=== PATIENT | male | born 1970 | race Caucasian/White ===

== ENCOUNTER → 2024-11-27 | Outpatient (CLI) | payer OTHER ==
--- NOTE | 2024-11-27 12:41 | PE ---
EXAMINATION TYPE: PET CT fusion skull to thigh DATE OF EXAM: 11/27/2024 COMPARISON: Chest x-ray November 09, 2024 HISTORY: Solitary pulmonary nodule, abnormal x-ray TECHNIQUE: Following the intravenous administration of 9.41 mCi of F-18 FDG, whole body images are p erformed from the skull base to the midthigh. Images are reviewed on the computer in the coronal, ax ial, and sagittal planes. Reconstructed rotating images are created on independent workstation and r eviewed on the computer. A localization and attenuation correction CT is performed in conjunction w ith the PET scan. Blood glucose level equals 100. SCAN: Initial Scan FINDINGS: SKULL BASE AND NECK: No areas of abnormal hypermetabolic uptake. CHEST, MEDIASTINUM, AND HILAR REGION: Mild underlying emphysematous change is redemonstrated. Corresp onding to chest x-ray there is a 2.5 x 2.1 cm nodule in the superior aspect right lower lobe with abn ormal hypermetabolic uptake, max SUV is 5.90. No additional areas of abnormal hypermetabolic uptake in the thorax. ABDOMEN AND PELVIS: No hypermetabolic adrenal masses. Normal excretion. No areas of abnormal hypermet abolic uptake. OSSEOUS STRUCTURES: No areas of abnormal uptake. OTHER CT: Moderate three-vessel coronary artery calcification is present. There is 1.6 cm low dense l eft adrenal mass consistent with benign lipid rich adenoma. There is moderate chronic compression fracture of L2 level with slight scoliotic curvature of the tho racolumbar spine and straightening seen on sagittal images. IMPRESSION: Confirmation of suspicious nodule in the right lung worrisome for malignancy. No abnormal thoracic adenopathy or metastatic disease identified. Advise cardiothoracic surgical referral. [facility], , 11/27/2024 12:38 PM
== END | disposition home or self-care (01) ==
LOC: RADPETMAIN 10:17
PROVIDERS: ATTEND Internal Medicine
DX: R91.1 Solitary pulmonary nodule (principal); M48.56XA Collapsed vertebra, not elsewhere classified, lumbar region, initial encounter for fracture; N28.89 Other specified disorders of kidney and ureter
CPT/HCPCS: 78815; A9552

== ENCOUNTER → 2024-12-23 | Day surgery (SDC) | payer OTHER ==
[~2024-12-23] MED LIST: GLYCOPYRROLATE 0.2 MG/ML 2 ML VIAL ONE; KETAMINE HCL IN 0.9 % NACL 50 MG/5 ML SYRINGE ONE; LACTATED RINGERS 1,000 ML IV SCH; LIDOCAINE 1% (10MG/ML) FOR IV START INTRADERMA PRN; LIDOCAINE 1% INJ 10MG/ML (20 ML MDV) ONE; MIDAZOLAM 2 MG/2 ML VIAL ONE; NEOSTIGMINE 1 MG/ML 10 ML VIAL ONE; PHENYLEPHRINE-0.9% NACL SYG 1,000 MCG/10 ML SYRINGE ONE; PROPOFOL 10 MG/ML 20 ML VIAL IV ONE; ROCURONIUM 10 MG/ML (5 ML VIAL) IV ONE; SUCCINYLCHOLINE CHLORIDE 200 MG/10 ML VIAL IV ONE; fentaNYL (PF) 50 MCG/ML 2 ML AMP ONE
--- NOTE | 2024-12-23 12:49 | CT ---
EXAMINATION TYPE: CT Chest wo ION protocol DATE OF EXAM: 12/23/2024 COMPARISON: PET CT 11/27/2024 CLINICAL INDICATION: Male, 54 years old with history of ion bronch; [facility], Ion bronchoscopy TECHNIQUE: CT scan of the thorax is performed without IV contrast. CT DLP: 248.[address] CTDI: 6.50 mGy Automated exposure control for dose reduction was used. FINDINGS: LUNGS: Redemonstration of a superior segment right lower lobe 2.3 x 1.6 cm solid pulmonary nodule (se uriah 3, image 147). Additional few scattered small pulmonary nodules within the samples including a r ight upper lobe 3 mm pulmonary nodule (series 4, image 60). There is no pleural effusion or pneumotho rax seen. The tracheobronchial tree is patent. MEDIASTINUM: Lack of IV contrast is noted to limit evaluation for mediastinal and especially hilar ad enopathy. There are no definitive greater than 1 cm hilar or mediastinal lymph nodes. No cardiomega ly or pericardial effusion is seen. HEART: Size within normal limits.No pericardial effusion. Mild coronary artery calcifications present . -Appearing superior endplate compression deformity of the L2 vertebral body with approximately 10% height loss and no retropulsion. No visualized aggressive osseous lesion. OTHER: Left adrenal gland 1.9 cm lesion with Hounsfield unit of -18. Consistent with a benign lipid r ich adenoma. IMPRESSION: 1. Redemonstration of a right lower lobe superior segment 2.3 cm solid pulmonary nodule. This demonst rated FDG activity on prior PET/CT and is suspicious for primary lung malignancy. Additional nonspeci fic few scattered smaller pulmonary nodules. Attention on follow-up exams. 2. Left adrenal gland 1.9 cm lesion consistent with a benign lipid ridge adenoma. [facility], , 12/23/2024 12:47 PM
[2024-12-23] MEDS: IV FLUID CONTINUATION 1,000 ML IV ONE (12:53)
[2024-12-23] MEDS: DEXAMETHASONE SOD PHOSPHATE 4 MG/ML 1 ML VIAL IVP STA (13:12)
[2024-12-23] MEDS: ONDANSETRON 4 MG/2 ML VIAL IVP STA (13:12)
--- NOTE | 2024-12-23 15:18 | FL ---
EXAMINATION TYPE: FL bronchoscopy Intraoperative/procedural fluoroscopic services were provided. CLINICAL INDICATION:Male, 54 years old with history of BRONCH WITH ION ROBOT; , [facility] FINDINGS: Fluoroscopic image demonstrating bronchoscopy. No radiographic evidence for complication. Total fluoroscopy time is 1 minute 5 seconds. DAP: 2.4492 Gycm2 Please see the operative/procedural note for further details. [facility], , 12/23/2024 3:15 PM
[2024-12-23 15:34] VITALS: TEMP 97.2
--- NOTE | 2024-12-23 15:40 | XR ---
EXAMINATION TYPE: XR chest 1V DATE OF EXAM: 12/23/2024 3:36 PM COMPARISON: Bronchoscopy fluoroscopic images of the same date, CT chest 12/23/2024 TECHNIQUE: XR chest 1V Portable AP radiograph of the chest. CLINICAL INDICATION:Male, 54 years old with history of post bx; FINDINGS: Lungs/Pleura: No pleural effusion or pneumothorax. Redemonstration of right mid lung pulmonary nodule with development of surrounding airspace opacities. Pulmonary vascularity: Unremarkable. Heart/mediastinum: Cardiomediastinal silhouette is unremarkable. Atherosclerotic calcifications are seen in the aorta. Musculoskeletal: No acute osseous pathology. IMPRESSION: Postbiopsy changes of previously seen right midlung pulmonary nodule with surrounding airspace opacit y likely representing atelectasis/blood products. No discrete pneumothorax. [facility], , 12/23/2024 3:38 PM
[2024-12-23 16:32] VITALS: BP 113/71; PULSE 80; RESP 20
--- NOTE | 2024-12-23 17:23 | P.PCN ---
Date of Procedure: 12/23/24 Operative Findings: Preoperative Diagnosis: Right lower lobe pulmonary nodule measuring 2.5 x 2.1 cm in size Postoperative Diagnosis: Right lower lobe pulmonary nodule/mass measuring 2.5 x 2.1 cm in size Procedure(s) Performed: Flexible bronchoscopy Robotic-assisted bronchoscopy and addition to radial ultrasound evaluation of right lower lobe pulmonary nodule Robotic-assisted transbronchial biopsies, transbronchial needle aspirate of the right lower lobe pulmonary nodule Robotic assisted bronchioloalveolar lavage of the of the right lower lobe Anesthesia: CLAUDIAA Surgeon: Marilin Zheng Estimated Blood Loss (ml): 0 Pathology: other Condition: stable Disposition: same day Operative Findings: A physical exam was performed. Informed consent was obtained from the patient after explaining all the risks (pneumothorax, life threatening bleeding, infection and adverse effects due to medications), benefits and alternatives to the procedure which the patient appeared to understand and so stated. The patient was connected to the monitoring devices. General anesthesia was induced and the patient was intubated by anesthesia. A final timeout was performed and the procedure confirmed by the attending staff bronchoscopist. The bronchoscope was inserted and the airway examined. The trachea was within normal limits. Fifi was sharp. Examination of the right side included right mainstem bronchus, the right upper lobe bronchus, bronchus intermedius, right middle lobe and right lower lobe bronchus and the various 10 segments on the right. The findings on the right were essentially within normal limits. Examination of the left side showed a normal left mainstem bronchus. The left upper lobe bronchus and left lower lobe bronchus and the various 8 segments on the left were essentially within normal limits. The flexible bronchoscope was removed and the robotic bronchoscope was inserted. Registration was completed. I next guided the robotic bronchoscope using the navigation system into the right lower lobe superior segment. Once in proper position, the bronchoscope was frozen. The radial EBUS probe was placed through the bronchoscope and confirmed abnormal u/s images vs normal lung. U/S evaluation was then used to reconfirm location. A transbronchial needle aspirate of the right lower lobe mass was done initially using a 23-gauge needle and later on using a 21-gauge needle. Initially, 3 passes were taken and the samples were examined and evaluated by pathology at the bedside. Following this rapid onsite cytology evaluation and confirmation of sample adequacy, 3 additional transbronchial needle aspirates were done and no samples was placed in the cellblock. Following that, a forceps was used to perform transbronchial biopsies of the right lower lobe pulmonary nodule. A forceps was introduced through working channel and extended the appropriate distance and to transbronchial biopsies were performed using fluoroscopic guidance. The u/s probe was then reinserted to confirm location. When confirmed this process was repeated for a total of 5-6 transbronchial biopsies. Following that, a bronchioloalveolar lavage of the left upper lobe was also done. A total of 40 cc of fluid was infused and 10 cc was aspirated and the aspirate was blood tinged. No clots. Fluoroscopic check for pneumothorax was negative upon completion of the procedure. There was 0 ml blood loss with the procedure. The robotic catheter was removed. The flexible bronchoscope was inserted. Therapeutic airway suctioning was done. There was no evidence of an endobronchial bleed. The flexible bronchoscope was removed. The patient was extubated and the patient was transferred to recovery in stable condition. FINDINGS: 1.The airways appeared normal, no significant respiratory secretions 2 Successful navigation, ultrasonographic identification, and biopsies of right lower lobe pulmonary nodule 3.The the radial ultrasound view was eccentric as the lesion was located to the fifi and between 3 separate subsegments within the superior segment of the right lower lobe. Subsequently, following manipulation and transbronchial needle aspirates, the the ultrasound images became concentric RECOMMENDATIONS: Await pathology and cytology results The referring physician will be alerted to the results when available. The patient was advised to follow up with the referring physician with the biop sy results
== END ==
LOC: ORWHC2ENDO 12:14
PROVIDERS: ATTEND Internal Medicine Critical Care Medicine
DX: R91.1 Solitary pulmonary nodule (principal); J44.9 Chronic obstructive pulmonary disease, unspecified; F17.200 Nicotine dependence, unspecified, uncomplicated
CPT/HCPCS: 88108; 88305; 87070; 87205; 87075; 71045; 71250; 31628; 31629; 31624; 31627; 31654; J2250; J0330; J1100; J2710; J2405; J2003; J3010; J2704; J2371; J1596; S2900

== ENCOUNTER → 2025-02-24 | Outpatient (CLI) | payer OTHER ==
[2025-02-24 19:30] LABS: Chloride 104 mmol/L (96-109); Potassium 4.6 mmol/L (3.5-5.5); Sodium 141 mmol/L (135-145)
[2025-02-24 19:31] LABS: Basophils # (A) 0.07 X 10*3/uL (0.00-0.10); Basophils % (A) 1.1 %; Eosinophils # (A) 0.18 X 10*3/uL (0.04-0.35); Eosinophils % (A) 2.7 %; HCT 43.9 % (39.6-50.0); HGB 14.3 g/dL (13.0-17.0); Lymphocytes # (A) 2.16 X 10*3/uL (0.90-5.00); Lymphocytes % (A) 32.6 %; MCH 29.7 pg (27.0-32.0); MCHC 32.6 g/dL (32.0-37.0); MCV 91.3 FL (80.0-97.0); Mean Platelet Volume 10.7 FL (9.5-12.2); Monocytes # (A) 0.41 X 10*3/uL (0.20-1.00); Monocytes % (A) 6.2 %; NRBC Per 100 WBC 0 X 10*3/uL (0.00-0.01); Neutrophils # (A) 3.78 X 10*3/uL (1.80-7.70); Neutrophils % (A) 57.1 %; Platelet Count 259 X 10*3/uL (140-440); RBC 4.81 X 10*6/uL (4.40-5.60); RDW 12.1 % (11.5-14.5); WBC 6.62 X 10*3/uL (4.50-10.00)
[2025-02-24 20:57] LABS: Appearance,Urine Clear (Clear); Bilirubin,Urine Small (Negative); Blood,Urine Negative (Negative); Color,Urine Dark Yellow (Yellow); Ketones,Urine Trace (Negative); Nitrite,Urine Negative (Negative); PH, Urine 5.5; Specific Gravity,Urine 1.028 (1.001-1.030)
== END | disposition home or self-care (01) ==
LOC: LABWHC1 14:59
PROVIDERS: ATTEND Thoracic Surgery (Cardiothoracic Vascular Surgery)
DX: Z01.818 Encounter for other preprocedural examination (principal); C34.31 Malignant neoplasm of lower lobe, right bronchus or lung
CPT/HCPCS: 36415; 80051; 81003; 82565; 84520; 85025; 86850; 86900; 86901; 87086; 93005

== ENCOUNTER → 2025-02-25 | Outpatient (CLI) | payer OTHER ==
[2025-02-25 16:57] LABS: INR 0.9 (<1.2); Partial Thromboplastin Time 26.4 sec (22.0-30.0); Prothrombin Time 10.3 sec (10.0-12.5)
== END | disposition home or self-care (01) ==
LOC: LABPAT 16:15
PROVIDERS: ATTEND Thoracic Surgery (Cardiothoracic Vascular Surgery)
DX: Z01.812 Encounter for preprocedural laboratory examination (principal); C34.31 Malignant neoplasm of lower lobe, right bronchus or lung
CPT/HCPCS: 82947; 85610; 85730

== ENCOUNTER 2025-03-02 05:38 | Inpatient (IN) | payer OTHER ==
[2025-03-02] MEDS ORDERED: LIDOCAINE 1% (10MG/ML) FOR IV START INTRADERMA PRN (05:54)
[2025-03-02] MEDS: IV FLUID CONTINUATION 1,000 ML IV ONE ×2 (06:37→06:38)
[2025-03-02] MEDS: LACTATED RINGERS 1,000 ML IV SCH (06:38)
[2025-03-02] MEDS: ONDANSETRON 4 MG/2 ML VIAL IVP ONE (06:49)
[2025-03-02] MEDS: DEXAMETHASONE SOD PHOSPHATE 4 MG/ML 1 ML VIAL IV ONE (06:49)
[2025-03-02] MEDS: MIDAZOLAM 2 MG/2 ML VIAL IV ONE (06:54)
[2025-03-02] MEDS: fentaNYL (PF) 50 MCG/ML 2 ML AMP IV PRN (06:54)
[2025-03-02] MEDS ORDERED: HYDROmorphone 0.5 MG/0.5 ML SYRINGE IVP PRN (07:00)
--- NOTE | 2025-03-02 07:14 | P.ANPRN ---
Procedure Note - Anesthesia - Nerve Block Performed Right Erector Spinae Single Time Out Performed: Yes Date of Procedure: 03/02/25 Procedure Start Time: :54 Procedure Stop Time: 07:01 Location of Patient: PreOp Indication: Acute Post-Operative Pain, Requested by Surgeon Sedation Type: Sedate with meaningful contact maintained Preparation: Sterile Prep Position: Sitting Needle Types: Pajunk Needle Gauge: 21 Ultrasound used to visualize needle placement: Yes Ultrasound used to observe medication spread: Yes Injectate: 0.5% Ropivacaine (see comment for volume) (20 mL +10 mL of normal saline +4 mg dexamethasone) Blood Aspirated: No Pain Paresthesia on Injection Noted: No Resistance on Injection: Normal Image Stored and Saved: Yes Events: Uneventful and Well Tolerated
[2025-03-02] MEDS ORDERED: NEOSTIGMINE 1 MG/ML 10 ML VIAL ONE (07:24)
[2025-03-02] MEDS ORDERED: GLYCOPYRROLATE 0.2 MG/ML 2 ML VIAL ONE (07:24)
[2025-03-02] MEDS ORDERED: KETAMINE HCL IN 0.9 % NACL 50 MG/5 ML SYRINGE ONE (07:24)
[2025-03-02] MEDS ORDERED: LIDOCAINE 1% INJ 10MG/ML (20 ML MDV) ONE (07:24)
[2025-03-02] MEDS ORDERED: SUCCINYLCHOLINE CHLORIDE 200 MG/10 ML VIAL IV ONE (07:24)
[2025-03-02] MEDS ORDERED: SODIUM CHLORIDE 0.9% (PF) 10 ML VIAL ONE (07:24)
[2025-03-02] MEDS ORDERED: METOPROLOL TARTRATE 5 MG/5 ML VIAL IVP ONE (07:24)
[2025-03-02] MEDS ORDERED: ACETAMINOPHEN IV (For NPO) 1,000 MG/100 ML VIAL ONE (07:24)
[2025-03-02] MEDS ORDERED: ROPIVACAINE 5 MG/ML 30 ML VIAL ONE (07:24)
[2025-03-02] MEDS ORDERED: fentaNYL (PF) 50 MCG/ML 2 ML AMP ONE (07:24)
[2025-03-02] MEDS ORDERED: ROCURONIUM 10 MG/ML (5 ML VIAL) IV ONE (07:24)
[2025-03-02] MEDS ORDERED: PROPOFOL 10 MG/ML 20 ML VIAL IV ONE (07:24)
[2025-03-02] MEDS ORDERED: MIDAZOLAM 2 MG/2 ML VIAL ONE (07:24)
[2025-03-02] MEDS ORDERED: DEXAMETHASONE SOD PHOSPHATE 4 MG/ML 1 ML VIAL ONE (07:24)
[2025-03-02] MEDS ORDERED: HYDROmorphone (PF) 1 MG/ML ONE (07:24)
[2025-03-02] MEDS: BUPIVACAINE (PF) 0.25% 30 ML VIAL SQ ONE ×2 (08:49)
[2025-03-02] MEDS: LIDOCAINE 1%-EPI 1:100,000 20 ML VIAL SQ ONE ×2 (08:50)
[2025-03-02] MEDS: LACTATED RINGERS 1,000 ML IV ONE (11:24)
[2025-03-02] MEDS: RACEPINEPHRINE 2.25% NEB 0.5 ML NEBU INHALATION STA (12:27)
--- NOTE | 2025-03-02 12:45 | P.OP ---
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 Right lower lobe superior segment wedge for excisional biopsy nodule 2. Completion lobectomy 3. Mediastinal lymph node dissection 4. 2 level intercostal nerve block Implants: None Anesthesia: CELSA, regional Surgeon: Kasi Sparrow Estimated Blood Loss (ml): 50 Pathology: other (Level 9, 8, 7, 10, 11, 12, and 13 lymph nodes. Right lower lobe superior segment wedge with nodule. Completion right lower lobectomy) Condition: stable Disposition: PACU Indications for Procedure: Mr. Yeh is our pleasant 54-year-old gentleman with a suspicious right lower lobe nodule. He underwent Ion biopsy and unfortunately the biopsy just showed suspicious cells without a confirmed diagnosis. He presents for wedge resection of the nodule with possible completion lobectomy if the nodule is confirmed non- small cell carcinoma. Operative Findings: 1. Nodule contained within specimen 2. Frozen section showed atypical cells with a lipidic growth pattern consistent with adenocarcinoma, well-differentiated 3. Multiple large but benign appearing lymph nodes 4. Poorly developed fissure with small but discernible air leak on positive pressure ventilation Description of Procedure: After consent was obtained, the patient was brought to the operating room where he underwent general by dual-lumen endotracheal tube anesthesia with some difficulty requiring my assistance for placement. We eventually had excellent tube placement and good lung isolation. The patient was then positioned in left lateral decubitus position on the beanbag positioner and the table was flexed to open up the rib spaces on the right side. We then evacuated the beanbag and secured the patient in place. He was then prepped and draped in sterile fashion in left lateral decubitus position and prior to incision a timeout was observed whereby the patient the procedure the site the side the OR personnel, antibiotic delivery and films up in the room were all confirmed. We then injected the patient after marking with local anesthetic at the camera port site. Once the incision was made we gained access to the chest with a blunt clamp and then inserted an 8 mm trocar sheath through which we insufflated with 7 cm water pressure CO2. We confirmed we are in the chest space and then used the scope to visually confirm injection of the local anesthetic for our intercostal nerve block at the eighth intercostal space. We then proceeded to use the camera through the posterior port to verify placement and local injection for the anteriormost operative port prior to inserting the 12 port and then we verified injection and the nerve block/intercostal block at the 10th intercostal space prior to placing our 15 mm assistance port site. Once that was accomplished we brought the robot and docked. We inserted the camera and the instruments under direct vision of the scope and then brought in a single cigar sponge after docking the robot. I then broke scrub for the console. We began by inspecting the fissure and found the fissures to be partially complete both major and minor. We also were able to see there was no visual evidence of the pulmonary artery branches at the fissure and we spent some time developing the fissure in order to verify where we were going to take our wedge resection. It was at that time that it appeared the endotracheal tube was then with the bronchial side on the right and that it was within the bronchus intermedius. I then attended the patient at the bedside and we readjusted the tube assuring that the bronchial was down the left and once we had done that and assured it was in proper position we were able to ventilate the left lung independent from the right and all 3 right lobes were able to become atelectatic giving us adequate exposure for the rest of the procedure. We are then able to use multiple firings of the 30 mm blue load robotic stapler to resect the superior segment wedge with the nodule and it and we confirmed after removal and a small bag through the assistance port that the nodule was indeed within the specimen by palpation. We then proceeded on after handing that off for frozen section to dissected the inferior pulmonary ligament and the attendant lymph nodes for a level 9 packet. There were several lymph nodes along the esophagus and those were taken for level 8. We then took out a generous level 7 packet as well as a level 10 lymph node. We were further able to locate and take a level 11 lymph node at that time. We then pushed the lung posteriorly and we are able to take a level 4 lymph node packet and then we turned our attention to the anteriormost portion of the major fissure. We used a blue stapling load to partially divide that and then once we had confirmation that the specimen was indeed consistent with adenocarcinoma, lipidic type, we proceeded to take the inferior pulmonary vein and then we were able to complete the anterior portion of the major fissure then locating the pulmonary arterial trunk just above all 3 branches to the lower lobe. This was then taken with a white stapling load exposing the inferior lobe bronchi. We were able to take the bronchus with a green stapling load and then complete the fissure with a single firing of a blue stapling load. Once the lobe was free, we placed it in a catch bag and removed through the assistance port site having to enlarge it slightly to accommodate the residual specimen. We then proceeded on to remove all foreign bodies after removing all robotic instruments and camera, undocking the robot and moving it aside. We then used a cigar sponge to dry up the staple line on the lung and assure the bronchus looked good. We also dried up the raw spot left behind after dissecting in the fissure. We then proceeded to use pro gel sealant to spray the suture line, the bronchus and staple line as well as the raw spot at the fissure. We then, while the pro gel was drying placed a posterior 19 Turkmen Elijah drain through the assistance port site and the 20 Turkmen straight thoracic catheter anteriorly through the anteriormost port site. These were secured and placed with 0 Ethibond sutures and after that was accomplished the lung was able to be reinflated under direct vision of the camera. It inflated nicely both the upper and middle lobes and we were able then to remove all ports and camera and close the patient deep with 2-0 interrupted buried Vicryl sutures and the skin with 40 buried interrupted Monocryl sutures. Patient was dressed with skin glue and 4 x 4's and tape around the chest tubes that were attached to a Y and then to a Pleur-evac container. The patient did have a small airleak on inspiration under positive pressure ventilation. The patient's mother and aunt were briefed on the procedure and the findings as well as the patient's condition.
--- NOTE | 2025-03-02 13:18 | XR ---
EXAMINATION TYPE: XR chest 1V portable DATE OF EXAM: 03/02/2025 1:00 PM COMPARISON: 12/23/2024 CLINICAL INDICATION: Male, 54 years old with history of post lobectomy, TECHNIQUE: XR chest 1V portable views of the chest are obtained. FINDINGS: Demonstrated are scattered senescent parenchymal change. Postoperative changes of partial right-side d lobectomy with right-sided chest tube in place. No evidence for pneumothorax There is no evidence for focal infiltrate. The heart is stable. Hilar and mediastinal structures are within normal limits. Degenerative changes are seen of the dorsal spine. IMPRESSION: 1. Postoperative changes of partial right-sided lobectomy with right-sided chest tube in place. No e vidence for pneumothorax [facility], , 03/02/2025 1:15 PM
[2025-03-02] MEDS ORDERED: ONDANSETRON 4 MG/2 ML VIAL IVP PRN (14:19)
[2025-03-02] MEDS ORDERED: IPRATROPIUM-ALBUTEROL 3 ML NEB IH PRN (14:19)
[2025-03-02] MEDS: IPRATROPIUM-ALBUTEROL 3 ML NEB IH SCH (15:53)
[2025-03-02] MEDS: HEPARIN SODIUM,PORCINE 5,000 UNIT/ML 1 ML VIAL SQ SCH (16:20)
[2025-03-02] MEDS: DEXTROSE 5%-0.45% NACL 1,000 ML IV SCH (16:20)
[2025-03-02] MEDS: traMADol 50 MG TAB PO PRN (16:20)
--- NOTE | 2025-03-02 17:17 | P.CNPUL ---
History of Present Illness Consult date: 03/02/25 Requesting physician: Kasi Sparrow Reason for consult: lung mass Chief complaint: Right lower lobe pulmonary nodule History of present illness: This is a 54-year-old male patient with a known history of chronic obstructive pulmonary disease, very mild with an FEV1 value 97% of predicted, chronic and ongoing tobacco dependence. He was being followed in our office with Dr. Sterling regarding a right lower lobe mass measuring 2.3 cm that was PET avid. He did undergo robotic bronchoscopy however the results were inconclusive. He was referred to Dr. Sparrow for wedge resection and biopsy. He was brought in today electively for the surgery. He did undergo a right lower lobe superior segment wedge for excisional biopsy nodule. Completion lobectomy, and mediastinal lymph node dissection. 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 Postoperative chest x-ray reveals partial right sided lobectomy with right sided chest tube in place. No evidence of pneumothorax. He is seen today in consultation on the selective care unit. Currently sitting up in bed. Awake and alert in no acute distress. He is maintaining O2 saturations in the upper 90s on 2 L/min per nasal cannula. He is afebrile. Hemodynamically stable. Right sided chest tube remains in place to Pleur-evac and wall suction. Positive leak present. He is educated regarding the importance of the use of the incentive spirometer. Review of Systems REVIEW OF SYSTEMS: CONSTITUTIONAL: Denies any recent significant weight loss or weight gain. EYES: Denies change in vision. EARS, NOSE, MOUTH, THROAT: Denies headaches, denies sore throat. CARDIOVASCULAR: Positive for surgical site chest pain, no palpitations or syncopal episodes. RESPIRATORY: Denies shortness of breath, cough, congestion or hemoptysis. GASTROINTESTINAL: Denies change in appetite, denies abdominal pain GENITOURINARY: Denies hematuria, denies infections. MUSKULOSKELETAL: Denies pain, denies swelling. INTEGUMENTARY: Denies rash, denies eczema. NEUROLOGICAL: Denies recent memory loss, no recent seizure activity. PSYCHIATRIC: Denies anxiety, denies depression. HEMATOLOGIC/LYMPHATIC: Denies anemia, denies enlarged lymph nodes. Past Medical History Past Medical History: Hyperlipidemia, Osteoarthritis (OA) Additional Past Medical History / Comment(s): Smokers cough, right lung nodule. History of Any Multi-Drug Resistant Organisms: None Reported Past Surgical History: No Surgical Hx Reported Additional Past Surgical History / Comment(s): Bronchoscopy/right lung biopsy. Past Anesthesia/Blood Transfusion Reactions: No Reported Reaction Additional Past Anesthesia/Blood Transfusion Reaction / Comment(s): No hx blood transfusion. Smoking Status: Current every day smoker - Past Family History Sister(s) Family Medical History: Cancer Additional Family Medical History / Comment(s): Not sure what type of cancer. Medications and Allergies Home Medications Medication Instructions Recorded Confirmed Type Cholecalciferol [Vitamin D3 (25 25 mcg PO DAILY 12/21/24 03/02/25 History Mcg = 1000 Iu)] Allergies Allergy/AdvReac Type Severity Reaction Status Date / Time No Known Allergies Allergy Verified 03/02/25 06:04 Physical Exam Vitals: Vital Signs Temp Pulse Pulse Pulse Resp BP BP 03/02/25 16:08 80 03/02/25 15:53 80 03/02/25 13:30 83 16 125/72 03/02/25 13:15 85 16 129/70 03/02/25 13:00 89 16 134/64 152/71 03/02/25 12:45 86 16 109/82 148/87 03/02/25 12:35 87 28 H 142/80 03/02/25 12:20 97.1 F L 93 20 140/71 03/02/25 07:19 60 16 117/74 03/02/25 07:04 57 L 16 112/70 03/02/25 06:59 57 L 16 116/74 03/02/25 06:20 97.5 F L 16 125/80 Pulse Ox 03/02/25 16:08 03/02/25 15:53 03/02/25 13:30 98 03/02/25 13:15 98 03/02/25 13:00 96 03/02/25 12:45 98 03/02/25 12:35 98 03/02/25 12:20 95 03/02/25 07:19 99 03/02/25 07:04 99 03/02/25 06:59 100 03/02/25 06:20 99 Intake and Output 03/02/25 03/02/25 03/02/25 06:59 14:59 22:59 Intake Total 300 1750 Output Total 250 Balance 300 1500 Intake: IV 300 1750 Output: Urine 200 Estimated Blood Loss 50 Other: Weight 66.8 kg GENERAL EXAM: Alert, pleasant 54-year-old male, sitting up in bed, on 2 L nasal cannula, fairly comfortable in no apparent distress. HEAD: Normocephalic. EYES: Normal reaction of pupils, equal size. NOSE: Clear with pink turbinates. THROAT: No erythema or exudates. NECK: No masses, no JVD. CHEST: No chest wall deformity. Right sided chest tube secured in place to Pleur-evac and wall suction. Positive leak LUNGS: Equal air entry with diminished breath sounds in the right lung. CVS: S1 and S2 normal with no audible murmur, regular rhythm. ABDOMEN: No hepatosplenomegaly, normal bowel sounds, no guarding or rigidity. SPINE: No scoliosis or deformity SKIN: No rashes CENTRAL NERVOUS SYSTEM: No focal deficits, tone is normal in all 4 extremities. EXTREMITIES: There is no peripheral edema. No clubbing, no cyanosis. Pe ripheral pulses are intact. Results - Diagnostic Findings Chest x-ray: image reviewed Assessment and Plan Assessment: 2.3 x 1.6 cm PET avid superior segment of the right lower lobe solid pulmonary nodule. Status post right lower lobe superior segment wedge for excisional biopsy nodule. Completion lobectomy. Mediastinal lymph node dissection. Postoperative day #0. 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 Chronic and ongoing tobacco dependence Mild chronic obstructive pulmonary disease with an FEV1 value 97% of predicted Plan: The patient was seen and evaluated Operative report, chest x-ray and medications reviewed Encouraged regarding increased use of the incentive spirometer Currently stable on 2 L nasal cannula Initiate DuoNeb inhalations Heparin for DVT prophylaxis Toradol for pain control Receiving cefazolin NicoDerm patch in place Increase his activity as tolerated The plan of care was discussed with the patient and his family members who are present at the bedside We will continue to follow and make further recommendations based on his clin ical status I have personally seen and examined the patient, performed the documentation and the assessment and plan as written. Number of minutes spent on the visit: 20 Dictation was produced using [employer] dictation software. Please excuse any grammatical, word or spelling errors. Time with Patient: Greater than 30
[2025-03-02] MEDS: NICOTINE 21MG/24HR PATCH TRANSDERM SCH (17:44)
[2025-03-02] MEDS: KETOROLAC 15 MG/ML 1 ML VIAL IVP SCH (17:44)
[2025-03-02] MEDS: SENNOSIDES-DOCUSATE SODIUM 1 EACH TAB PO SCH (20:03)
[2025-03-02] MEDS: ACETAMINOPHEN TAB 325 MG TAB PO PRN (20:03)
[2025-03-03] MEDS: SODIUM CHLORIDE 0.9% 1,000 ML IV SCH (03:38)
[2025-03-03] MEDS: PANTOPRAZOLE 40 MG TABLET PO SCH (06:13)
--- NOTE | 2025-03-03 08:14 | XR ---
EXAMINATION TYPE: XR chest 1V DATE OF EXAM: 03/03/2025 6:59 AM COMPARISON: 03/02/2025 CLINICAL INDICATION: Male, 54 years old with history of post lobectomy, TECHNIQUE: XR chest 1V views of the chest are obtained. FINDINGS: 2 right-sided chest tubes remain in place. Postoperative changes of partial right-sided lobectomy. No sizable pneumothorax. There is no evidence for focal infiltrate. The heart is stable. Hilar and mediastinal structures are within normal limits. Degenerative changes are seen of the dorsal spine. IMPRESSION: 1. 2 right-sided chest tubes remain in place. Postoperative changes of partial right-sided lobectomy . No sizable pneumothorax. [facility], , 03/03/2025 8:12 AM
--- NOTE | 2025-03-03 08:48 | P.PN ---
Subjective Progress Note Date: 03/03/25 Principal diagnosis: Right lower lobe lung nodule 2.3 x 1.6 cm PET avid superior segment of the right lower lobe solid pulmonary nodule. Past medical history significant for hyperlipidemia, chronic obstructive pulmonary disease with a preoperative FEV1 97% of predicted value, and chronic ongoing tobacco dependence. POD #1 Right lower lobe superior segment wedge for excisional biopsy nodule, completion lobectomy, mediastinal lymph node dissection, and 2 level intercostal nerve block. The patient was seen and examined in follow-up today March 03, 2025 at his bedside on the third floor cardiac stepdown unit. He is currently sitting up to the bedside chair, is awake, alert, oriented x 3 and is in no acute apparent distress. He denies any complaints of shortness of breath at this time, although is complaining of some surgical type pain to his chest tube insertion sites, currently rating his pain 4 out of 10 on the pain scale. He does report that his current pain medication regimen is controlling his pain. Oxygen saturations are 97% on room air and he is achieving 1250 mL on his incentive spirometry with encouragement. Right pleural chest tubes remain in place to low continuous wall suction -20 cm H2O. Continuous airleak is present with breathing, speaking and coughing. Draining thin serosanguineous drainage with 100 mL open in the last 8 hours and 370 mL output since surgery. Laboratory results remain pending, chest x-ray results reviewed. Surgical pathology results remain pending. Objective - Vital Signs Vital signs: Vital Signs Temp 98.3 F 03/03/25 03:11 Pulse 80 03/03/25 08:13 Resp 18 03/03/25 03:11 BP 128/78 03/03/25 03:11 Pulse Ox 97 03/03/25 03:11 FiO2 Intake & Output 03/02/25 03/03/25 03/03/25 18:59 06:59 18:59 Intake Total 1989 Output Total 250 1600 Balance 1740 -1580 Weight 69.3 kg Intake: IV 1750 20 Invasive Line 2 10 Invasive Line 3 10 Oral 240 Output: Drainage 100 Right Chest 100 Urine 200 1500 Estimated Blood Loss 50 Other: Voiding Method Urinal - Exam CONSTITUTIONAL: Appears comfortable, cooperative, no acute distress RESPIRATORY: Lungs sounds diminished bilaterally. Respirations even, nonlabored. Currently on room air with oxygen saturation 97%. Able to achieve 1250 mL on incentive spirometry. Strong cough. CARDIOVASCULAR: S1, S2 present. Regular rate and rhythm, sinus rhythm on telemetry, heart rate 82 bpm. Palpable peripheral pulses bilaterally. No edema present. No calf pain or tenderness noted. SCDs present. GASTROINTESTINAL: Abdomen soft, nontender, nondistended. Active bowel sounds present 4 quadrants. Tolerating diet. Passing flatus. GENITOURINARY: Continues to void clear, yellow urine. Urine output 1160 mL in the last 8 hours. INTEGUMENTARY: Skin is warm and dry with evidence of good perfusion. Thoracic incision well approximated and covered with dry intact dressing. NEUROLOGIC: Cranial nerves II through XII intact. No focal deficits. MUSKULOSKELETAL: Able to move all extremities, strength equal bilaterally, gait normal. PSYCHIATRIC: Alert and oriented to person place and time, appropriate affect, intact judgment and insight. INVASIVE LINES AND TUBES: Right pleural chest tubes present and connected to wall suction, continuous airleak present with coughing, speaking and breathing. Right pleural chest tube with 100 mL serosanguineous drainage overnight, 370 mL last 24 hours. - Allied health notes Allied health notes reviewed: nursing - Imaging and Cardiology Chest x-ray: report reviewed, image reviewed Assessment and Plan Assessment: Right lower lobe lung nodule 2.3 x 1.6 cm PET avid superior segment of the right lower lobe solid pulmonary nodule, status post robotic assisted right lower lobe superior segment wedge for excisional biopsy nodule, completion lobectomy Hyperlipidemia Chronic obstructive pulmonary disease with a preoperative FEV1 97% of predicted value Chronic ongoing tobacco dependence Plan: We will keep his right pleural chest tubes to low continuous wall suction -20 cm H2O. Continue to monitor for airleak resolution. Encourage use of incentive spirometry 10 times every hour while awake. Continue to monitor daily chest x-rays. Pain control per current as needed orders. Will add Robaxin for additional pain control. Pathology results remain pending, will continue to follow pathology results. Increase activity as tolerated. Out of bed for all meals. Saline lock IV. More recommendations to follow based on patient's clinical course. Time with Patient: Greater than 30
[2025-03-03] MEDS: CHOLECALCIFEROL 25 MCG (1000 IU) TABLET PO SCH (09:19)
[2025-03-03 09:44] LABS: Basophils # (A) 0.03 10*3/uL (0.00-0.10); Basophils % (A) 0.2 %; Eosinophils # (A) 0.01 10*3/uL (0.04-0.35); Eosinophils % (A) 0.1 %; HCT 39.2 % (39.6-50.0); HGB 13.0 g/dL (13.0-17.0); Lymphocytes # (A) 2.50 10*3/uL (0.90-5.00); Lymphocytes % (A) 13.7 %; MCH 30.3 pg (27.0-32.0); MCHC 33.2 g/dL (32.0-37.0); MCV 91.4 fL (80.0-97.0); Monocytes # (A) 0.94 10*3/uL (0.20-1.00); Monocytes % (A) 5.2 %; Neutrophils # (A) 14.68 10*3/uL (1.80-7.70); Neutrophils % (A) 80.4 %; Platelet Count 232 10*3/uL (140-440); RBC 4.29 10*6/uL (4.40-5.60); RDW 12.2 % (11.5-14.5); WBC 18.23 10*3/uL (4.50-10.00)
[2025-03-03 10:03] LABS: African American GFR (CKD) >90 (>60 ml/min/1.73 sqM); Anion Gap 10 mmol/L; Blood Urea Nitrogen 9 mg/dL (9-20); Calcium 9.7 mg/dL (8.4-10.2); Carbon Dioxide 28 mmol/L (22-30); Chloride 101 mmol/L (98-107); Glucose 140 mg/dL (74-99); Non-African American GFR(CKD) >90 (>60 ml/min/1.73 sqM); Potassium 3.9 mmol/L (3.5-5.1); Sodium 139 mmol/L (137-145)
[2025-03-03] MEDS ORDERED: Potassium Replacement Protocol 1 EACH MISC MISCELLANE PRN (10:09)
[2025-03-03] MEDS: POTASSIUM CHLORIDE ER 20 MEQ TAB.ER PO SCH (11:44)
--- NOTE | 2025-03-03 16:22 | P.PN ---
Subjective Progress Note Date: 03/03/25 This is a 54-year-old male patient with a known history of chronic obstructive pulmonary disease, very mild with an FEV1 value 97% of predicted, chronic and ongoing tobacco dependence. He was being followed in our office with Dr. Sterling regarding a right lower lobe mass measuring 2.3 cm that was PET avid. He did undergo robotic bronchoscopy however the results were inconclusive. He was referred to Dr. Sparrow for wedge resection and biopsy. He was brought in today electively for the surgery. He did undergo a right lower lobe superior segment wedge for excisional biopsy nodule. Completion lobectomy, and mediastinal lymph node dissection. 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 Postoperative chest x-ray reveals partial right sided lobectomy with right sided chest tube in place. No evidence of pneumothorax. He is seen today in consultation on the selective care unit. Currently sitting up in bed. Awake and alert in no acute distress. He is maintaining O2 saturations in the upper 90s on 2 L/min per nasal cannula. He is afebrile. Hemodynamically stable. Right sided chest tube remains in place to Pleur-evac and wall suction. Positive leak present. He is educated regarding the importance of the use of the incentive spirometer. The patient is seen today March 03, 2025 in follow-up on the selective care unit. He is currently sitting up at the bedside. Awake and alert in no acute distress. Maintaining good O2 saturations in the 90s on room air oxygen. He is afebrile. Hemodynamically stable. Chest x-ray reveals 2 right-sided chest tubes in place. Postoperative changes of partial right sided lobectomy. No sizable pneumothorax. Chest tubes remain to Pleur-evac and continuous low wall suction at -20 cm per H2O. Approximately 350 mL of serosanguineous drainage since surgery. There is a continuous airleak present. He is working well with the incentive spirometer. White count 18.2. Hemoglobin 13.0. Platelets 232. Sodium 139. Potassium 3.9. Bicarb 28. BUN 9. Creatinine 0.73. Glucose 140. Pathology results are pending. Objective - Vital Signs Vital signs: Vital Signs Temp 98.4 F 03/03/25 15:13 Pulse 88 03/03/25 15:40 Resp 16 03/03/25 15:13 BP 128/78 03/03/25 15:13 Pulse Ox 99 03/03/25 15:13 FiO2 Intake & Output 03/02/25 03/03/25 03/03/25 18:59 06:59 18:59 Intake Total 1989 20 480 Output Total 250 1600 350 Balance 1740 -1580 130 Weight 69.3 kg Intake: IV 1750 20 Invasive Line 2 10 Invasive Line 3 10 Oral 240 480 Output: Drainage 100 Right Chest 100 Urine 200 1500 350 Estimated Blood Loss 50 Other: Voiding Method Urinal Urinal - Exam GENERAL EXAM: Alert, active, pleasant 54-year-old male, sitting up at the bedside, on room air oxygen, fairly comfortable in no apparent distress. HEAD: Normocephalic. EYES: Normal reaction of pupils, equal size. NOSE: Clear with pink turbinates. THROAT: No erythema or exudates. NECK: No masses, no JVD. CHEST: No chest wall deformity. Right sided chest tube remains in place to Pleur-evac and wall suction. Positive leak LUNGS: Equal air entry with no crackles, wheeze, rhonchi or dullness. CVS: S1 and S2 normal with no audible murmur, regular rhythm. ABDOMEN: No hepatosplenomegaly, normal bowel sounds, no guarding or rigidity. SPINE: No scoliosis or deformity SKIN: No rashes CENTRAL NERVOUS SYSTEM: No focal deficits, tone is normal in all 4 extremities. EXTREMITIES: There is no peripheral edema. No clubbing, no cyanosis. Jolie pheral pulses are intact. - Labs CBC & Chem 7: 03/03/25 08:44 03/03/25 08:44 Labs: Abnormal Lab Results - Last 24 Hours (Table) 03/03/25 03/03/25 Range/Units 08:44 08:44 WBC 18.23 H (4.50-10.00) 10*3/uL RBC 4.29 L (4.40-5.60) 10*6/uL Hct 39.2 L (39.6-50.0) % Immature Gran # 0.07 H (0.00-0.04) 10*3/uL Neutrophils # 14.68 H (1.80-7.70) 10*3/uL Eosinophils # 0.01 L (0.04-0.35) 10*3/uL Glucose 140 H (74-99) mg/dL Assessment and Plan Assessment: 2.3 x 1.6 cm PET avid superior segment of the right lower lobe solid pulmonary nodule. Status post right lower lobe superior segment wedge for excisional biopsy nodule. Completion lobectomy. Mediastinal lymph node dissection. Postoperative day #1. 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 Chronic and ongoing tobacco dependence Mild chronic obstructive pulmonary disease with an FEV1 value 97% of predicted Plan: The patient was seen and evaluated Chest x-ray, labs and medications reviewed Pathology pending Continues with a positive leak via right sided chest tube Continue with increased use of the incentive spirometer Currently stable on room air oxygen Continue DuoNeb inhalations Heparin for DVT prophylaxis Toradol for pain control Completed cefazolin NicoDerm patch in place Increase his activity as tolerated We will continue to follow I have personally seen and examined the patient, performed the documentation and the assessment and plan as written. Number of minutes spent on the visit: 10 Dictation was produced using [employer] dictation software. Please excuse any grammatical, word or spelling errors.
[2025-03-04 08:14] LABS: HCT 38.8 % (39.6-50.0); HGB 12.5 g/dL (13.0-17.0); MCH 29.8 pg (27.0-32.0); MCHC 32.2 g/dL (32.0-37.0); MCV 92.4 fL (80.0-97.0); Platelet Count 209 10*3/uL (140-440); RBC 4.20 10*6/uL (4.40-5.60); RDW 12.4 % (11.5-14.5); WBC 8.49 10*3/uL (4.50-10.00)
--- NOTE | 2025-03-04 08:17 | XR ---
EXAMINATION TYPE: XR chest 1V portable DATE OF EXAM: 03/04/2025 7:05 AM COMPARISON: 03/03/2025 CLINICAL INDICATION: Male, 54 years old with history of s/p right lower lobectomy, TECHNIQUE: XR chest 1V portable views of the chest are obtained. FINDINGS: Lobectomy changes noted. 2 right-sided chest tubes are in place. Small amount of subcutaneous air harlan ng the chest wall. Tiny pneumothorax may be present at the right lung base given increased lucency. A telectatic changes present. There is no evidence for focal infiltrate. The heart is stable. Hilar and mediastinal structures are within normal limits. Degenerative changes are seen of the dorsal spine. IMPRESSION: 1. Lobectomy changes noted. 2 right-sided chest tubes are in place. Small amount of subcutaneous air along the chest wall. Tiny pneumothorax may be present at the right lung base given increased lucenc y. Atelectatic changes present. [facility], , 03/04/2025 8:15 AM
[2025-03-04 08:28] LABS: African American GFR (CKD) >90 (>60 ml/min/1.73 sqM); Anion Gap 4 mmol/L; Blood Urea Nitrogen 10 mg/dL (9-20); Calcium 9.7 mg/dL (8.4-10.2); Carbon Dioxide 32 mmol/L (22-30); Chloride 104 mmol/L (98-107); Glucose 96 mg/dL (74-99); Non-African American GFR(CKD) >90 (>60 ml/min/1.73 sqM); Potassium 4.5 mmol/L (3.5-5.1); Sodium 140 mmol/L (137-145)
--- NOTE | 2025-03-04 13:41 | P.PN ---
Subjective Progress Note Date: 03/04/25 Principal diagnosis: Right lower lobe lung nodule 2.3 x 1.6 cm PET avid superior segment of the right lower lobe solid pulmonary nodule. Past medical history significant for hyperlipidemia, chronic obstructive pulmonary disease with a preoperative FEV1 97% of predicted value, and chronic ongoing tobacco dependence. POD #2 Right lower lobe superior segment wedge for excisional biopsy nodule, completion lobectomy, mediastinal lymph node dissection, and 2 level intercostal nerve block. The patient was seen and examined in follow-up today March 04, 2025 at his bedside on the third floor cardiac stepdown unit. He is currently up ambulating in his room, is awake, alert, oriented x 3 and is in no acute apparent distress. He denies any complaints of shortness of breath at this time. He also states that his pain is well-controlled on the current pain medication regimen. Oxygen saturations are 97% on room air and he is achieving 1250 mL on his incentive spirometry with encouragement. Right pleural chest tube remains in place to waterseal. Intermittent airleak present with coughing. Draining thin serosanguineous drainage with 150 mL output in the last 8 hours and 250 mL output in the last 24 hours. Remote telemetry showing normal sinus rhythm heart rate 78 bpm. Chest x-ray and laboratory results were reviewed. He has been up ambulating in the 3 S. cardiac stepdown unit hallway with standby assistance from nursing staff and tolerating well. Objective - Vital Signs Vital signs: Vital Signs Temp 97.2 F L 03/04/25 09:51 Pulse 80 03/04/25 12:52 Resp 18 03/04/25 09:52 BP 127/68 03/04/25 09:51 Pulse Ox 98 03/04/25 09:51 FiO2 Intake & Output 03/03/25 03/04/25 03/04/25 18:59 06:59 18:59 Intake Total 480 1080 Output Total 350 150 140 Balance 130 -150 940 Weight 69.7 kg Intake: Oral 480 1080 Output: Chest Tube Drainage 150 140 Right 150 140 Urine 350 Other: Voiding Method Urinal Urinal Urinal # Voids 2 1 - Exam CONSTITUTIONAL: Appears comfortable, cooperative, no acute distress RESPIRATORY: Lungs sounds diminished bilaterally. Respirations even, nonlabor ed. Currently on room air with oxygen saturation 97%. Able to achieve 1250 mL on his incentive spirometry. Strong cough. CARDIOVASCULAR: S1, S2 present. Regular rate and rhythm, sinus rhythm on telemetry, heart rate 78 bpm. Palpable peripheral pulses bilaterally. No edema present. No calf pain or tenderness noted. SCDs present. GASTROINTESTINAL: Abdomen soft, nontender, nondistended. Active bowel sounds present 4 quadrants. Tolerating diet. Denies passing flatus. GENITOURINARY: Continues to void clear, yellow urine. INTEGUMENTARY: Skin is warm and dry with evidence of good perfusion. Right thoracic incision well approximated and covered with dry intact dressing. NEUROLOGIC: Cranial nerves II through XII intact. No focal deficits. MUSKULOSKELETAL: Able to move all extremities, strength equal bilaterally, gait normal. PSYCHIATRIC: Alert and oriented to person place and time, appropriate affect, intact judgment and insight. INVASIVE LINES AND TUBES: Right pleural chest tubes present and is to waterseal, intermittent airleak present with coughing. Right pleural chest tube with 150 mL serosanguineous drainage overnight, 250 mL last 24 hours. - Allied health notes Allied health notes reviewed: nursing - Labs CBC & Chem 7: 03/04/25 07:25 03/04/25 07:25 Labs: Abnormal Lab Results - Last 24 Hours (Table) 03/04/25 03/04/25 Range/Units 07:25 07:25 RBC 4.20 L (4.40-5.60) 10*6/uL Hgb 12.5 L (13.0-17.0) g/dL Hct 38.8 L (39.6-50.0) % Carbon Dioxide 32 H (22-30) mmol/L - Imaging and Cardiology Chest x-ray: report reviewed, image reviewed Assessment and Plan Assessment: Right lower lobe lung nodule 2.3 x 1.6 cm PET avid superior segment of the right lower lobe solid pulmonary nodule, status post robotic assisted right lower lobe superior segment wedge for excisional biopsy nodule, completion lobectomy Hyperlipidemia Chronic obstructive pulmonary disease with a preoperative FEV1 97% of predicted value Chronic ongoing tobacco dependence Plan: We will keep his right pleural chest tubes to waterseal. Continue to monitor for airleak resolution. Encourage use of incentive spirometry 10 times every hour while awake. Continue to monitor daily chest x-rays. Pain control per current as needed orders. Surgical pathology results remain pending, will continue to follow pathology results. Increase activity as tolerated. Out of bed for all meals. Encourage ambulation. More recommendations to follow based on patient's clinical course. Time with Patient: Greater than 30
--- NOTE | 2025-03-04 16:23 | P.PN ---
Subjective Progress Note Date: 03/04/25 This is a 54-year-old male patient with a known history of chronic obstructive pulmonary disease, very mild with an FEV1 value 97% of predicted, chronic and ongoing tobacco dependence. He was being followed in our office with Dr. Sterling regarding a right lower lobe mass measuring 2.3 cm that was PET avid. He did undergo robotic bronchoscopy however the results were inconclusive. He was referred to Dr. Sparrow for wedge resection and biopsy. He was brought in today electively for the surgery. He did undergo a right lower lobe superior segment wedge for excisional biopsy nodule. Completion lobectomy, and mediastinal lymph node dissection. 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 Postoperative chest x-ray reveals partial right sided lobectomy with right sided chest tube in place. No evidence of pneumothorax. He is seen today in consultation on the selective care unit. Currently sitting up in bed. Awake and alert in no acute distress. He is maintaining O2 saturations in the upper 90s on 2 L/min per nasal cannula. He is afebrile. Hemodynamically stable. Right sided chest tube remains in place to Pleur-evac and wall suction. Positive leak present. He is educated regarding the importance of the use of the incentive spirometer. The patient is seen today March 03, 2025 in follow-up on the selective care unit. He is currently sitting up at the bedside. Awake and alert in no acute distress. Maintaining good O2 saturations in the 90s on room air oxygen. He is afebrile. Hemodynamically stable. Chest x-ray reveals 2 right-sided chest tubes in place. Postoperative changes of partial right sided lobectomy. No sizable pneumothorax. Chest tubes remain to Pleur-evac and continuous low wall suction at -20 cm per H2O. Approximately 350 mL of serosanguineous drainage since surgery. There is a continuous airleak present. He is working well with the incentive spirometer. White count 18.2. Hemoglobin 13.0. Platelets 232. Sodium 139. Potassium 3.9. Bicarb 28. BUN 9. Creatinine 0.73. Glucose 140. Pathology results are pending. The patient is seen today March 04, 2025 in follow-up on the selective care unit. He is awake and alert in no acute distress. Up ambulating in his room. Maintaining good O2 saturations in the upper 90s on room air oxygen. He is afebrile. Hemodynamically stable. White count 8.4. Hemoglobin 12.5. Platelets 209. Sodium 140. Potassium 4.5. Bicarb 32. BUN 10. Creatinine 0.7 1. He remains on DuoNeb and elations. Continuing to work well with the incentive spirometer. Heparin for DVT prophylaxis. NicoDerm patch in place. Chest tube remains in place. Intermittent leak is present. Drained 250 mL in the past 24 hours. Serosanguineous. Objective - Vital Signs Vital signs: Vital Signs Temp 98.2 F 03/04/25 16:00 Pulse 88 03/04/25 16:17 Resp 18 03/04/25 16:00 BP 130/80 03/04/25 16:00 Pulse Ox 98 03/04/25 16:00 FiO2 Intake & Output 03/03/25 03/04/25 03/04/25 18:59 06:59 18:59 Intake Total 480 1080 Output Total 350 150 140 Balance 130 -150 940 Weight 69.7 kg Intake: Oral 480 1080 Output: Chest Tube Drainage 150 140 Right 150 140 Urine 350 Other: Voiding Method Urinal Urinal Toilet Urinal # Voids 2 1 - Exam GENERAL EXAM: Alert, active, pleasant 54-year-old male, ambulating in the room, on room air oxygen, comfortable in no apparent distress. HEAD: Normocephalic. EYES: Normal reaction of pupils, equal size. NOSE: Clear with pink turbinates. THROAT: No erythema or exudates. NECK: No masses, no JVD. CHEST: No chest wall deformity. Right sided chest tube remains in place to Pleur-evac and wall suction. Intermittent leak LUNGS: Equal air entry with no crackles, wheeze, rhonchi or dullness. CVS: S1 and S2 normal with no audible murmur, regular rhythm. ABDOMEN: No hepatosplenomegaly, normal bowel sounds, no guarding or rigidity. SPINE: No scoliosis or deformity SKIN: No rashes CENTRAL NERVOUS SYSTEM: No focal deficits, tone is normal in all 4 extremities. EXTREMITIES: There is no peripheral edema. No clubbing, no cyanosis. Peripheral pulses are intact. - Labs CBC & Chem 7: 03/04/25 07:25 03/04/25 07:25 Labs: Abnormal Lab Results - Last 24 Hours (Table) 03/04/25 03/04/25 Range/Units 07:25 07:25 RBC 4.20 L (4.40-5.60) 10*6/uL Hgb 12.5 L (13.0-17.0) g/dL Hct 38.8 L (39.6-50.0) % Carbon Dioxide 32 H (22-30) mmol/L Assessment and Plan Assessment: 2.3 x 1.6 cm PET avid superior segment of the right lower lobe solid pulmonary nodule. Status post right lower lobe superior segment wedge for excisional biopsy nodule. Completion lobectomy. Mediastinal lymph node dissection. Postoperative day #2. 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 Chronic and ongoing tobacco dependence Mild chronic obstructive pulmonary disease with an FEV1 value 97% of predicted Plan: The patient was seen and evaluated Chest x-ray, labs and medications reviewed Pathology still pending Continues with an intermittent leak via right sided chest tube Continue with increased use of the incentive spirometer Currently stable on room air oxygen Continue DuoNeb inhalations Heparin for DVT prophylaxis NicoDerm patch in place Increase his activity as tolerated We will continue to follow I have personally seen and examined the patient, performed the documentation and the assessment and plan as written. Number of minutes spent on the visit: 10 Dictation was produced using [employer] dictation software. Please excuse any grammatical, word or spelling errors.
[2025-03-05 07:21] LABS: HCT 35.4 % (39.6-50.0); HGB 11.8 g/dL (13.0-17.0); MCH 30.0 pg (27.0-32.0); MCHC 33.3 g/dL (32.0-37.0); MCV 90.1 fL (80.0-97.0); Platelet Count 213 10*3/uL (140-440); RBC 3.93 10*6/uL (4.40-5.60); RDW 12.0 % (11.5-14.5); WBC 9.84 10*3/uL (4.50-10.00)
[2025-03-05 07:40] LABS: African American GFR (CKD) >90 (>60 ml/min/1.73 sqM); Anion Gap 6 mmol/L; Blood Urea Nitrogen 9 mg/dL (9-20); Calcium 9.4 mg/dL (8.4-10.2); Carbon Dioxide 30 mmol/L (22-30); Chloride 101 mmol/L (98-107); Glucose 94 mg/dL (74-99); Non-African American GFR(CKD) >90 (>60 ml/min/1.73 sqM); Potassium 4.1 mmol/L (3.5-5.1); Sodium 137 mmol/L (137-145)
--- NOTE | 2025-03-05 08:05 | XR ---
EXAMINATION TYPE: XR chest 2V DATE OF EXAM: 03/05/2025 6:29 AM COMPARISON: Chest radiograph from one day prior. CLINICAL INDICATION: Male, 54 years old with history of Status post right lower lobectomy; [facility] TECHNIQUE: XR chest 2V Frontal and lateral views of the chest. FINDINGS: Lungs/Pleura: There is no evidence of pleural effusion, focal consolidation, or left pneumothorax. Pulmonary vascularity: Unremarkable. Heart/mediastinum: Cardiomediastinal silhouette is unremarkable. Musculoskeletal: No acute osseous pathology. Other findings: None Lines/Tubes: Right thoracotomy tube with trace pneumothorax. IMPRESSION: Right thoracotomy tubes with trace pneumothorax. [facility], , 03/05/2025 8:03 AM
[2025-03-05] MEDS: LIDOCAINE 4% PATCH TOPICAL SCH (09:01)
--- NOTE | 2025-03-05 09:07 | P.PN ---
Subjective Progress Note Date: 03/05/25 Principal diagnosis: Right lower lobe lung nodule 2.3 x 1.6 cm PET avid superior segment of the right lower lobe solid pulmonary nodule. Past medical history significant for hyperlipidemia, chronic obstructive pulmonary disease with a preoperative FEV1 97% of predicted value, and chronic ongoing tobacco dependence. POD #3 Right lower lobe superior segment wedge for excisional biopsy nodule, completion lobectomy, mediastinal lymph node dissection, and 2 level intercostal nerve block. The patient was seen and examined in follow-up today March 05, 2025 at his bedside on the third floor cardiac stepdown unit. He is currently up ambulating in his room, is awake, alert, oriented x 3 and is in no acute apparent distress. He denies any complaints of shortness of breath at this time. He is complaining of some pain this morning to his right chest tube insertion sites and to his right shoulder blade. Oxygen saturations are 97% on room air and he is achieving 1500 mL on his incentive spirometry with encouragement. Right pleural chest tube remains in place to waterseal. Intermittent airleak present with coughing. Draining thin serosanguineous drainage with 30 mL output in the last 8 hours and 140 mL output in the last 24 hours. Remote telemetry showing normal sinus rhythm heart rate 83 bpm. Chest x-ray and laboratory results were reviewed. He reports he has been up ambulating in the 3 S. cardiac stepdown unit hallway with standby assistance from nursing staff and tolerating well. Objective - Vital Signs Vital signs: Vital Signs Temp 97.8 F 03/05/25 08:29 Pulse 80 03/05/25 08:53 Resp 18 03/05/25 08:29 BP 115/61 03/05/25 08:29 Pulse Ox 99 03/05/25 08:29 FiO2 Intake & Output 03/04/25 03/05/25 03/05/25 18:59 06:59 18:59 Intake Total 1800 540 Output Total 190 30 Balance 1610 510 Weight 68.3 kg Intake: Oral 1800 540 Output: Chest Tube Drainage 190 30 Right 190 30 Other: Voiding Method Toilet Toilet Urinal Urinal # Voids 1 0 - Exam CONSTITUTIONAL: Appears comfortable, cooperative, no acute distress RESPIRATORY: Lungs sounds diminished bilaterally. Respirations even, nonlabored. Currently on room air with oxygen saturation 97%. Able to achieve 1500 mL on his incentive spirometry. Strong cough. CARDIOVASCULAR: S1, S2 present. Regular rate and rhythm, sinus rhythm on telemetry, heart rate 83 bpm. Palpable peripheral pulses bilaterally. No edema present. No calf pain or tenderness noted. SCDs present. GASTROINTESTINAL: Abdomen soft, nontender, nondistended. Active bowel sounds present 4 quadrants. Tolerating diet. Denies passing flatus. GENITOURINARY: Continues to void clear, yellow urine. INTEGUMENTARY: Skin is warm and dry with evidence of good perfusion. Right thoracic incision well approximated and covered with dry intact dressing. NEUROLOGIC: Cranial nerves II through XII intact. No focal deficits. MUSKULOSKELETAL: Able to move all extremities, strength equal bilaterally, gait normal. PSYCHIATRIC: Alert and oriented to person place and time, appropriate affect, intact judgment and insight. INVASIVE LINES AND TUBES: Right pleural chest tubes present and is to waterseal, intermittent airleak present with coughing. Right pleural chest tube with 30 mL serosanguineous drainage overnight, 140 mL last 24 hours. - Allied health notes Allied health notes reviewed: nursing - Labs CBC & Chem 7: 03/05/25 06:52 03/05/25 06:52 Labs: Abnormal Lab Results - Last 24 Hours (Table) 03/05/25 Range/Units 06:52 RBC 3.93 L (4.40-5.60) 10*6/uL Hgb 11.8 L (13.0-17.0) g/dL Hct 35.4 L (39.6-50.0) % - Imaging and Cardiology Chest x-ray: report reviewed, image reviewed Assessment and Plan Assessment: Right lower lobe lung nodule 2.3 x 1.6 cm PET avid superior segment of the right lower lobe solid pulmonary nodule, status post robotic assisted right lower lobe superior segment wedge for excisional biopsy nodule, completion lobectomy Hyperlipidemia Chronic obstructive pulmonary disease with a preoperative FEV1 97% of predicted value Chronic ongoing tobacco dependence Plan: We will keep his right pleural chest tubes to waterseal. Continue to monitor for airleak resolution. Encourage use of incentive spirometry 10 times every hour while awake. Continue to monitor daily chest x-rays. Pain control per current as needed orders. Lidocaine patch added for additional pain control. Surgical pathology results remain pending, will continue to follow pathology results. Increase activity as tolerated. Out of bed for all meals. Encourage ambulation. More recommendations to follow based on patient's clinical course. Time with Patient: Less than 30
--- NOTE | 2025-03-05 15:05 | P.PN ---
Subjective Progress Note Date: 03/05/25 Principal diagnosis: POD #3 Right lower lobe superior segment wedge for excisional biopsy nodule, completion lobectomy, mediastinal lymph node dissection, and 2 level intercostal nerve block. This is a 54-year-old male patient with a known history of chronic obstructive pulmonary disease, very mild with an FEV1 value 97% of predicted, chronic and ongoing tobacco dependence. He was being followed in our office with Dr. Sterling regarding a right lower lobe mass measuring 2.3 cm that was PET avid. He did undergo robotic bronchoscopy however the results were inconclusive. He was referred to Dr. Sparrow for wedge resection and biopsy. He was brought in today electively for the surgery. He did undergo a right lower lobe superior segment wedge for excisional biopsy nodule. Completion lobectomy, and mediastinal lymph node dissection. 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 Postoperative chest x-ray reveals partial right sided lobectomy with right sided chest tube in place. No evidence of pneumothorax. He is seen today in consultation on the selective care unit. Currently sitting up in bed. Awake and alert in no acute distress. He is maintaining O2 saturations in the upper 90s on 2 L/min per nasal cannula. He is afebrile. Hemodynamically stable. Right sided chest tube remains in place to Pleur-evac and wall suction. Positive leak present. He is educated regarding the importance of the use of the incentive spirometer. The patient is seen today March 03, 2025 in follow-up on the selective care unit. He is currently sitting up at the bedside. Awake and alert in no acute distress. Maintaining good O2 saturations in the 90s on room air oxygen. He is afebrile. Hemodynamically stable. Chest x-ray reveals 2 right-sided chest tubes in place. Postoperative changes of partial right sided lobectomy. No sizable pneumothorax. Chest tubes remain to Pleur-evac and continuous low wall suction at -20 cm per H2O. Approximately 350 mL of serosanguineous drainage since surgery. There is a continuous airleak present. He is working well with the incentive spirometer. White count 18.2. Hemoglobin 13.0. Platelets 232. Sodium 139. Potassium 3.9. Bicarb 28. BUN 9. Creatinine 0.73. Glucose 140. Pathology results are pending. The patient is seen today March 04, 2025 in follow-up on the selective care unit. He is awake and alert in no acute distress. Up ambulating in his room. Harish montgomery good O2 saturations in the upper 90s on room air oxygen. He is afebrile. Hemodynamically stable. White count 8.4. Hemoglobin 12.5. Platelets 209. Sodium 140. Potassium 4.5. Bicarb 32. BUN 10. Creatinine 0.71. He remains on DuoNeb and elations. Continuing to work well with the incentive spirometer. Heparin for DVT prophylaxis. NicoDerm patch in place. Chest tube remains in place. Intermittent leak is present. Drained 250 mL in the past 24 hours. Serosanguineous. Patient was seen today on 03/05/2025, patient is POD #3 Right lower lobe superior segment wedge for excisional biopsy nodule, completion lobectomy, mediastinal lymph node dissection, and 2 level intercostal nerve block. Patient is doing well, continues to have chest tube in place, presently his chest tube is on waterseal, minimal intermittent air leak noted with cough. Otherwise the patient is doing great. Chest x-ray showed no evidence of pneumothorax. Patient is doing well with incentive spirometry, compliant, he is ambulatory, and I believe the patient will be discharged home once the chest tube is removed most likely in the next 24 hours. Objective - Vital Signs Vital signs: Vital Signs Temp 98.2 F 03/05/25 11:49 Pulse 74 03/05/25 11:49 Resp 18 03/05/25 11:49 BP 120/79 03/05/25 11:49 Pulse Ox 93 L 03/05/25 11:49 FiO2 Intake & Output 03/04/25 03/05/25 03/05/25 18:59 06:59 18:59 Intake Total 1800 540 Output Total 190 30 10 Balance 1610 510 -10 Weight 68.3 kg Intake: Oral 1800 540 Output: Chest Tube Drainage 190 30 10 Right 190 30 10 Other: Voiding Method Toilet Toilet Toilet Urinal Urinal Urinal # Voids 1 0 - Exam GENERAL EXAM: 54-year-old in no distress pleasant HEAD: Normocephalic. EYES: Normal reaction of pupils, equal size. NOSE: Clear with pink turbinates. THROAT: No erythema or exudates. NECK: No masses, no JVD. CHEST: No chest wall deformity. Right sided chest tube remains in place to Pleur-evac and wall suction. Minimal leak noted upon coughing LUNGS: Equal air entry with no crackles, wheeze, rhonchi or dullness. CVS: S1 and S2 normal with no audible murmur, regular rhythm. ABDOMEN: No hepatosplenomegaly, normal bowel sounds, no guarding or rigidity. SPINE: No scoliosis or deformity SKIN: No rashes CENTRAL NERVOUS SYSTEM: No focal deficits, tone is normal in all 4 extremities. EXTREMITIES: There is no peripheral edema. No clubbing, no cyanosis. Peripheral pulses are intact. - Labs CBC & Chem 7: 03/05/25 06:52 03/05/25 06:52 Labs: Abnormal Lab Results - Last 24 Hours (Table) 03/05/25 Range/Units 06:52 RBC 3.93 L (4.40-5.60) 10*6/uL Hgb 11.8 L (13.0-17.0) g/dL Hct 35.4 L (39.6-50.0) % Assessment and Plan Assessment: Impression: 2.3 x 1.6 cm PET avid superior segment of the right lower lobe solid pulmonary nodule. Status post right lower lobe superior segment wedge for excisional biopsy nodule. Completion lobectomy. Mediastinal lymph node dissection. 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
--- NOTE | 2025-03-06 07:41 | P.PN ---
Subjective Progress Note Date: 03/06/25 Principal diagnosis: Right lower lobe lung nodule 2.3 x 1.6 cm PET avid superior segment of the right lower lobe solid pulmonary nodule. Past medical history significant for hyperlipidemia, chronic obstructive pulmonary disease with a preoperative FEV1 97% of predicted value, and chronic ongoing tobacco dependence. POD #4 Right lower lobe superior segment wedge for excisional biopsy nodule, completion lobectomy, mediastinal lymph node dissection, and 2 level intercostal nerve block. The patient was seen and examined in follow-up today March 06, 2025 at his bedside on the third floor cardiac stepdown unit. The patient is currently sitting up to the bedside edge, is awake, alert, oriented x 3 and is in no acute apparent distress. He is tolerating his breakfast, and denies any complaints of pain, shortness of breath or nausea at this time. The patient states that his pain is well-controlled. Right pleural chest tube remains in place to waterseal. Intermittent airleak present with coughing. Draining thin serosanguineous drainage with 20 mL output in the last 8 hours and 100 mL output in the last 24 hours. Oxygen saturations are 98% on room air and he is achieving 1500 mL on his incentive spirometry with encouragement. Remote telemetry is showing normal sinus rhythm heart rate 87 bpm. The patient states that he has been up ambulating in the cardiac stepdown unit hallway independently and is tolerating well. Surgical pathology results remain pending. Chest x-ray results reviewed. Objective - Vital Signs Vital signs: Vital Signs Temp 97.9 F 03/06/25 03:30 Pulse 85 03/06/25 03:30 Resp 18 03/06/25 03:30 BP 125/79 03/06/25 03:30 Pulse Ox 98 03/06/25 03:30 FiO2 Intake & Output 03/05/25 03/06/25 03/06/25 18:59 06:59 18:59 Intake Total 840 540 Output Total 40 57 Balance 800 483 Weight 68.4 kg Intake: Oral 840 540 Output: Chest Tube Drainage 40 57 Right 40 57 Other: Voiding Method Toilet Toilet Urinal Urinal # Voids 3 1 # Bowel Movements 1 - Exam CONSTITUTIONAL: Appears comfortable, cooperative, no acute distress RESPIRATORY: Lungs sounds diminished bilaterally. Respirations even, nonlabored. Currently on room air with oxygen saturation 98%. Able to achieve 1500 mL on his incentive spirometry. Strong cough. CARDIOVASCULAR: S1, S2 present. Regular rate and rhythm, sinus rhythm on telemetry, heart rate 87 bpm. Palpable peripheral pulses bilaterally. No edema present. No calf pain or tenderness noted. SCDs present. GASTROINTESTINAL: Abdomen soft, nontender, nondistended. Active bowel sounds present 4 quadrants. Tolerating diet. Denies passing flatus. GENITOURINARY: Continues to void clear, yellow urine. INTEGUMENTARY: Skin is warm and dry with evidence of good perfusion. Right thoracic incision well approximated and covered with dry intact dressing. NEUROLOGIC: Cranial nerves II through XII intact. No focal deficits. MUSKULOSKELETAL: Able to move all extremities, strength equal bilaterally, gait normal. PSYCHIATRIC: Alert and oriented to person place and time, appropriate affect, intact judgment and insight. INVASIVE LINES AND TUBES: Right pleural chest tubes present and is to waterseal, intermittent airleak present with coughing. Right pleural chest tube with 20 mL serosanguineous drainage overnight, 100 mL last 24 hours. - Allied health notes Allied health notes reviewed: nursing - Labs CBC & Chem 7: 03/05/25 06:52 03/05/25 06:52 - Imaging and Cardiology Chest x-ray: report reviewed, image reviewed Assessment and Plan Assessment: Right lower lobe lung nodule 2.3 x 1.6 cm PET avid superior segment of the right lower lobe solid pulmonary nodule, status post robotic assisted right lower lobe superior segment wedge for excisional biopsy nodule, completion lobectomy Hyperlipidemia Chronic obstructive pulmonary disease with a preoperative FEV1 97% of predicted value Chronic ongoing tobacco dependence Plan: We will keep his right pleural chest tubes to waterseal. Continue to monitor for airleak resolution. Encourage use of incentive spirometry 10 times every hour while awake. Continue to monitor daily chest x-rays. Pain control per current as needed orders. The importance of risk modification including smoking cessation has been discussed with the patient, he will be offered the number to [id number] on discharge. Surgical pathology results remain pending, will continue to follow pathology results. Increase activity as tolerated. Out of bed for all meals. Encourage ambu lation. More recommendations to follow based on patient's clinical course. Time with Patient: Greater than 30
--- NOTE | 2025-03-06 07:42 | XR ---
EXAMINATION TYPE: XR chest 1V portable DATE OF EXAM: 03/06/2025 5:14 AM COMPARISON: Chest radiograph from one day prior. CLINICAL INDICATION: Male, 54 years old with history of s/p right lower lobectomy; [facility] TECHNIQUE: XR chest 1V portable Frontal and lateral views of the chest. FINDINGS: Lungs/Pleura: There is no evidence of pleural effusion, focal consolidation, or left pneumothorax. Pulmonary vascularity: Unremarkable. Heart/mediastinum: Cardiomediastinal silhouette is unremarkable. Musculoskeletal: No acute osseous pathology. Other findings: None Lines/Tubes: Right thoracotomy tube with trace pneumothorax. IMPRESSION: Similar Right thoracotomy tubes with trace pneumothorax. [facility], , 03/06/2025 7:39 AM
--- NOTE | 2025-03-06 11:54 | P.PN ---
Subjective Progress Note Date: 03/06/25 Principal diagnosis: POD #4 right lower lobe superior segment wedge for excisional biopsy nodule, completion lobectomy, mediastinal lymph node dissection, and 2 level intercostal nerve block. This is a 54-year-old male patient with a known history of chronic obstructive pulmonary disease, very mild with an FEV1 value 97% of predicted, chronic and ongoing tobacco dependence. He was being followed in our office with Dr. Sterling regarding a right lower lobe mass measuring 2.3 cm that was PET avid. He did undergo robotic bronchoscopy however the results were inconclusive. He was referred to Dr. Sparrow for wedge resection and biopsy. He was brought in today electively for the surgery. He did undergo a right lower lobe superior segment wedge for excisional biopsy nodule. Completion lobectomy, and mediastinal lymph node dissection. 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 Postoperative chest x-ray reveals partial right sided lobectomy with right sided chest tube in place. No evidence of pneumothorax. He is seen today in consultation on the selective care unit. Currently sitting up in bed. Awake and alert in no acute distress. He is maintaining O2 saturations in the upper 90s on 2 L/min per nasal cannula. He is afebrile. Hemodynamically stable. Right sided chest tube remains in place to Pleur-evac and wall suction. Positive leak present. He is educated regarding the importance of the use of the incentive spirometer. The patient is seen today March 03, 2025 in follow-up on the selective care unit. He is currently sitting up at the bedside. Awake and alert in no acute distress. Maintaining good O2 saturations in the 90s on room air oxygen. He is afebrile. Hemodynamically stable. Chest x-ray reveals 2 right-sided chest tubes in place. Postoperative changes of partial right sided lobectomy. No sizable pneumothorax. Chest tubes remain to Pleur-evac and continuous low wall suction at -20 cm per H2O. Approximately 350 mL of serosanguineous drainage since surgery. There is a continuous airleak present. He is working well with the incentive spirometer. White count 18.2. Hemoglobin 13.0. Platelets 232. Sodium 139. Potassium 3.9. Bicarb 28. BUN 9. Creatinine 0.73. Glucose 140. Pathology results are pending. The patient is seen today March 04, 2025 in follow-up on the selective care unit. He is awake and alert in no acute distress. Up ambulating in his room. Harish montgomery good O2 saturations in the upper 90s on room air oxygen. He is afebrile. Hemodynamically stable. White count 8.4. Hemoglobin 12.5. Platelets 209. Sodium 140. Potassium 4.5. Bicarb 32. BUN 10. Creatinine 0.71. He remains on DuoNeb and elations. Continuing to work well with the incentive spirometer. Heparin for DVT prophylaxis. NicoDerm patch in place. Chest tube remains in place. Intermittent leak is present. Drained 250 mL in the past 24 hours. Serosanguineous. Patient was seen today on 03/05/2025, patient is POD #3 Right lower lobe superior segment wedge for excisional biopsy nodule, completion lobectomy, mediastinal lymph node dissection, and 2 level intercostal nerve block. Patient is doing well, continues to have chest tube in place, presently his chest tube is on waterseal, minimal intermittent air leak noted with cough. Otherwise the patient is doing great. Chest x-ray showed no evidence of pneumothorax. Patient is doing well with incentive spirometry, compliant, he is ambulatory, and I believe the patient will be discharged home once the chest tube is removed most likely in the next 24 hours. Seen today on 03/06/2025, patient is now postoperative day #4, doing great, asymptomatic, continues to have intermittent airleak, chest x-ray showed no appreciable pneumothorax. Clinically the patient is doing great, ambulating, and doing quite well with incentive spirometry. Again as long as the chest tube remains in place, patient is not ready for discharge, hopefully the chest tube could be removed in the next 24 to 48 hours at the most. Objective - Vital Signs Vital signs: Vital Signs Temp 97.9 F 03/06/25 08:10 Pulse 80 03/06/25 11:46 Resp 18 03/06/25 08:10 BP 115/74 03/06/25 08:10 Pulse Ox 97 03/06/25 08:10 FiO2 Intake & Output 03/05/25 03/06/25 03/06/25 18:59 06:59 18:59 Intake Total 840 540 Output Total 40 57 Balance 800 483 Weight 68.4 kg Intake: Oral 840 540 Output: Chest Tube Drainage 40 57 Right 40 57 Other: Voiding Method Toilet Toilet Urinal Urinal # Voids 3 1 # Bowel Movements 1 - Exam GENERAL EXAM: 54-year-old in no distress pleasant HEAD: Normocephalic. EYES: Normal reaction of pupils, equal size. NOSE: Clear with pink turbinates. THROAT: No erythema or exudates. NECK: No masses, no JVD. CHEST: No chest wall deformity. Right sided chest tube remains in place to Pleur-evac and wall suction. Minimal leak noted upon coughing LUNGS: Equal air entry with no crackles, wheeze, rhonchi or dullness. CVS: S1 and S2 normal with no audible murmur, regular rhythm. ABDOMEN: No hepatosplenomegaly, normal bowel sounds, no guarding or rigidity. SPINE: No scoliosis or deformity SKIN: No rashes CENTRAL NERVOUS SYSTEM: No focal deficits, tone is normal in all 4 extremities. EXTREMITIES: There is no peripheral edema. No clubbing, no cyanosis. Peripheral pulses are intact. - Labs CBC & Chem 7: 03/05/25 06:52 03/05/25 06:52 Assessment and Plan Assessment: Impression: 2.3 x 1.6 cm PET avid superior segment of the right lower lobe solid pulmonary nodule. Status post right lower lobe superior segment wedge for excisional biopsy nodule. Completion lobectomy. Mediastinal lymph node dissection. 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
--- NOTE | 2025-03-07 07:19 | XR ---
EXAMINATION TYPE: XR chest 1V portable DATE OF EXAM: 03/07/2025 5:50 AM COMPARISON: Chest radiograph from one day prior. CLINICAL INDICATION: Male, 54 years old with history of s/p right lower lobectomy; [facility] TECHNIQUE: XR chest 1V portable Frontal and lateral views of the chest. FINDINGS: Lungs/Pleura: There is no evidence of pleural effusion, focal consolidation, or left pneumothorax. Pulmonary vascularity: Unremarkable. Heart/mediastinum: Cardiomediastinal silhouette is unremarkable. Musculoskeletal: No acute osseous pathology. Other findings: None Lines/Tubes: Right thoracotomy tube with trace pneumothorax. IMPRESSION: Similar Right thoracotomy tubes with trace pneumothorax. [facility], , 03/07/2025 7:16 AM
[2025-03-07 08:02] LABS: HCT 38.6 % (39.6-50.0); HGB 13.0 g/dL (13.0-17.0); MCH 30.2 pg (27.0-32.0); MCHC 33.7 g/dL (32.0-37.0); MCV 89.8 fL (80.0-97.0); Platelet Count 289 10*3/uL (140-440); RBC 4.30 10*6/uL (4.40-5.60); RDW 12.2 % (11.5-14.5); WBC 6.91 10*3/uL (4.50-10.00)
--- NOTE | 2025-03-07 08:26 | P.PN ---
Subjective Progress Note Date: 03/07/25 Principal diagnosis: Right lower lobe lung nodule 2.3 x 1.6 cm PET avid superior segment of the right lower lobe solid pulmonary nodule. Past medical history significant for hyperlipidemia, chronic obstructive pulmonary disease with a preoperative FEV1 97% of predicted value, and chronic ongoing tobacco dependence. POD #5 Right lower lobe superior segment wedge for excisional biopsy nodule, completion lobectomy, mediastinal lymph node dissection, and 2 level intercostal nerve block. The patient was seen in follow-up today March 07, 2025 at his bedside on the third floor cardiac stepdown unit. He is sitting up at his bedside edge, and tolerating his breakfast. He reports he has been ambulating in the cardiac stepdown unit hallway independently, and denies any complaints of pain or shortness of breath at this time. Oxygen saturations are 97% on room air and he is achieving 1500 mL on his incentive spirometry with encouragement. Right pleural chest tube remains in place to waterseal. Intermittent airleak present with coughing. Draining thin serosanguineous drainage with 90 mL output in the last 8 hours and 300 mL output in the last 24 hours. Surgical pathology results remain pending. Chest x-ray results were reviewed and laboratory results remain pending. Objective - Vital Signs Vital signs: Vital Signs Temp 97.6 F 03/07/25 07:38 Pulse 77 03/07/25 07:38 Resp 16 03/07/25 07:38 BP 112/69 03/07/25 07:38 Pulse Ox 97 03/07/25 07:38 FiO2 Intake & Output 03/06/25 03/07/25 03/07/25 18:59 06:59 18:59 Intake Total 10 240 430 Output Total 162 90 Balance -152 150 430 Weight 66 kg Intake: IV 10 10 .9 10 Invasive Line 2 5 Invasive Line 3 5 Oral 240 420 Output: Chest Tube Drainage 162 90 Right 162 90 Other: Voiding Method Toilet Toilet Urinal Urinal # Voids 1 - Exam CONSTITUTIONAL: Appears comfortable, cooperative, no acute distress RESPIRATORY: Lungs sounds diminished bilaterally. Respirations even, nonlabored. Currently on room air with oxygen saturation 98%. Able to achieve 1500 mL on his incentive spirometry. Strong cough. CARDIOVASCULAR: S1, S2 present. Regular rate and rhythm, sinus rhythm on telemetry, heart rate 91 bpm. Palpable peripheral pulses bilaterally. No edema present. No calf pain or tenderness noted. GASTROINTESTINAL: Abdomen soft, nontender, nondistended. Active bowel sounds present 4 quadrants. Tolerating diet. Passing flatus. GENITOURINARY: Continues to void clear, yellow urine. INTEGUMENTARY: Skin is warm and dry with evidence of good perfusion. Right thoracic incision well approximated and covered with dry intact dressing. NEUROLOGIC: Cranial nerves II through XII intact. No focal deficits. MUSKULOSKELETAL: Able to move all extremities, strength equal bilaterally, gait normal. PSYCHIATRIC: Alert and oriented to person place and time, appropriate affect, intact judgment and insight. INVASIVE LINES AND TUBES: Right pleural chest tubes present and is to waterseal, intermittent airleak present with coughing. Right pleural chest tube with 90 mL serosanguineous drainage overnight, 300 mL last 24 hours. - Allied health notes Allied health notes reviewed: nursing - Labs CBC & Chem 7: 03/07/25 07:11 03/05/25 06:52 Labs: Abnormal Lab Results - Last 24 Hours (Table) 03/07/25 Range/Units 07:11 RBC 4.30 L (4.40-5.60) 10*6/uL Hct 38.6 L (39.6-50.0) % MPV 9.4 L (9.5-12.2) fL - Imaging and Cardiology Chest x-ray: report reviewed, image reviewed Assessment and Plan Assessment: Right lower lobe lung nodule 2.3 x 1.6 cm PET avid superior segment of the right lower lobe solid pulmonary nodule, status post robotic assisted right lower lobe superior segment wedge for excisional biopsy nodule, completion lobectomy Hyperlipidemia Chronic obstructive pulmonary disease with a preoperative FEV1 97% of predicted value Chronic ongoing tobacco dependence Plan: We will keep his right pleural chest tubes to waterseal. Continue to monitor for airleak resolution. Encourage use of incentive spirometry 10 times every hour while awake. Continue to monitor daily chest x-rays. Pain control per current as needed orders. The importance of risk modification including smoking cessation has been discussed with the patient, he will be offered the number to [id number] on discharge. Surgical pathology results remain pending, will continue to follow pathology results. Increase activity as tolerated. Out of bed for all meals. Encourage ambulation. More recommendations to follow based on patient's clinical course. Time with Patient: Greater than 30
[2025-03-07 08:42] LABS: African American GFR (CKD) >90 (>60 ml/min/1.73 sqM); Anion Gap 5 mmol/L; Blood Urea Nitrogen 10 mg/dL (9-20); Calcium 9.9 mg/dL (8.4-10.2); Carbon Dioxide 31 mmol/L (22-30); Chloride 101 mmol/L (98-107); Glucose 93 mg/dL (74-99); Non-African American GFR(CKD) >90 (>60 ml/min/1.73 sqM); Potassium 4.5 mmol/L (3.5-5.1); Sodium 137 mmol/L (137-145)
--- NOTE | 2025-03-07 13:27 | P.PN ---
Subjective Progress Note Date: 03/07/25 Principal diagnosis: POD #5 right lower lobe superior segment wedge for excisional biopsy nodule, completion lobectomy, mediastinal lymph node dissection, and 2 level intercostal nerve block. This is a 54-year-old male patient with a known history of chronic obstructive pulmonary disease, very mild with an FEV1 value 97% of predicted, chronic and ongoing tobacco dependence. He was being followed in our office with Dr. Sterling regarding a right lower lobe mass measuring 2.3 cm that was PET avid. He did undergo robotic bronchoscopy however the results were inconclusive. He was referred to Dr. Sparrow for wedge resection and biopsy. He was brought in today electively for the surgery. He did undergo a right lower lobe superior segment wedge for excisional biopsy nodule. Completion lobectomy, and mediastinal lymph node dissection. 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 Postoperative chest x-ray reveals partial right sided lobectomy with right sided chest tube in place. No evidence of pneumothorax. He is seen today in consultation on the selective care unit. Currently sitting up in bed. Awake and alert in no acute distress. He is maintaining O2 saturations in the upper 90s on 2 L/min per nasal cannula. He is afebrile. Hemodynamically stable. Right sided chest tube remains in place to Pleur-evac and wall suction. Positive leak present. He is educated regarding the importance of the use of the incentive spirometer. The patient is seen today March 03, 2025 in follow-up on the selective care unit. He is currently sitting up at the bedside. Awake and alert in no acute distress. Maintaining good O2 saturations in the 90s on room air oxygen. He is afebrile. Hemodynamically stable. Chest x-ray reveals 2 right-sided chest tubes in place. Postoperative changes of partial right sided lobectomy. No sizable pneumothorax. Chest tubes remain to Pleur-evac and continuous low wall suction at -20 cm per H2O. Approximately 350 mL of serosanguineous drainage since surgery. There is a continuous airleak present. He is working well with the incentive spirometer. White count 18.2. Hemoglobin 13.0. Platelets 232. Sodium 139. Potassium 3.9. Bicarb 28. BUN 9. Creatinine 0.73. Glucose 140. Pathology results are pending. The patient is seen today March 04, 2025 in follow-up on the selective care unit. He is awake and alert in no acute distress. Up ambulating in his room. Harish montgomery good O2 saturations in the upper 90s on room air oxygen. He is afebrile. Hemodynamically stable. White count 8.4. Hemoglobin 12.5. Platelets 209. Sodium 140. Potassium 4.5. Bicarb 32. BUN 10. Creatinine 0.71. He remains on DuoNeb and elations. Continuing to work well with the incentive spirometer. Heparin for DVT prophylaxis. NicoDerm patch in place. Chest tube remains in place. Intermittent leak is present. Drained 250 mL in the past 24 hours. Serosanguineous. Patient was seen today on 03/05/2025, patient is POD #3 Right lower lobe superior segment wedge for excisional biopsy nodule, completion lobectomy, mediastinal lymph node dissection, and 2 level intercostal nerve block. Patient is doing well, continues to have chest tube in place, presently his chest tube is on waterseal, minimal intermittent air leak noted with cough. Otherwise the patient is doing great. Chest x-ray showed no evidence of pneumothorax. Patient is doing well with incentive spirometry, compliant, he is ambulatory, and I believe the patient will be discharged home once the chest tube is removed most likely in the next 24 hours. Seen today on 03/06/2025, patient is now postoperative day #4, doing great, asymptomatic, continues to have intermittent airleak, chest x-ray showed no appreciable pneumothorax. Clinically the patient is doing great, ambulating, and doing quite well with incentive spirometry. Again as long as the chest tube remains in place, patient is not ready for discharge, hopefully the chest tube could be removed in the next 24 to 48 hours at the most. Patient was seen today on 03/07/2025, he is now postoperative day #5. Doing well asymptomatic, continues to have minimal air leak especially upon coughing. Otherwise the patient is doing great. Chest tube remains in place it is off wall suction on waterseal. Patient has been ambulating in the hallway without any difficulty. WBC 6.9 hemoglobin 13 electrolytes abnormal renal profile is normal Objective - Vital Signs Vital signs: Vital Signs Temp 97.7 F 03/07/25 11:54 Pulse 84 03/07/25 12:25 Resp 16 03/07/25 11:54 BP 126/79 03/07/25 11:54 Pulse Ox 98 03/07/25 11:54 FiO2 Intake & Output 03/06/25 03/07/25 03/07/25 18:59 06:59 18:59 Intake Total 10 240 910 Output Total 162 90 Balance -152 150 910 Weight 66 kg Intake: IV 10 10 .9 10 Invasive Line 2 5 Invasive Line 3 5 Oral 240 900 Output: Chest Tube Drainage 162 90 Right 162 90 Other: Voiding Method Toilet Toilet Urinal Urinal # Voids 1 - Exam GENERAL EXAM: 54-year-old in no distress pleasant HEAD: Normocephalic. EYES: Normal reaction of pupils, equal size. NOSE: Clear with pink turbinates. THROAT: No erythema or exudates. NECK: No masses, no JVD. CHEST: No chest wall deformity. Right sided chest tube remains in place to Pleur-evac off wall suction LUNGS: Equal air entry with no crackles, wheeze, rhonchi or dullness. CVS: S1 and S2 normal with no audible murmur, regular rhythm. ABDOMEN: No hepatosplenomegaly, normal bowel sounds, no guarding or rigidity. SPINE: No scoliosis or deformity SKIN: No rashes CENTRAL NERVOUS SYSTEM: No focal deficits, tone is normal in all 4 extremities. EXTREMITIES: There is no peripheral edema. No clubbing, no cyanosis. Peripheral pulses are intact. - Labs CBC & Chem 7: 03/07/25 07:11 03/07/25 07:11 Labs: Abnormal Lab Results - Last 24 Hours (Table) 03/07/25 03/07/25 Range/Units 07:11 07:11 RBC 4.30 L (4.40-5.60) 10*6/uL Hct 38.6 L (39.6-50.0) % MPV 9.4 L (9.5-12.2) fL Carbon Dioxide 31 H (22-30) mmol/L Assessment and Plan Assessment: Impression: 2.3 x 1.6 cm PET avid superior segment of the right lower lobe solid pulmonary nodule. Status post right lower lobe superior segment wedge for excisional biopsy nodule. Completion lobectomy. Mediastinal lymph node dissection. 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
--- NOTE | 2025-03-08 07:30 | XR ---
EXAMINATION TYPE: XR chest 1V portable DATE OF EXAM: 03/08/2025 7:00 AM COMPARISON: Multiple radiographs, with the most recent on 03/07/2025 TECHNIQUE: XR chest 1V portable Portable AP radiograph of the chest. CLINICAL INDICATION:Male, 54 years old with history of s/p right lower lobectomy; FINDINGS: Lungs/Pleura: Left lung is clear. No sizable pneumothorax. Postsurgical changes from right lower lobe ctomy. Pulmonary vascularity: Unremarkable. Heart/mediastinum: Cardiomediastinal silhouette is unremarkable. Musculoskeletal: No acute osseous pathology. Other findings: Right lateral lower chest wall subcutaneous emphysema. Lines/Tubes: There are 2 stable right-sided thoracostomy tubes demonstrated. IMPRESSION: Postsurgical changes of right lower lobe lobectomy without sizable pneumothorax. There are 2 right-si ded thoracotomy tubes identified with subcutaneous emphysema. [facility], , 03/08/2025 7:28 AM
--- NOTE | 2025-03-08 09:16 | P.PN ---
Subjective Progress Note Date: 03/08/25 Principal diagnosis: Right lower lobe lung nodule 2.3 x 1.6 cm PET avid superior segment of the right lower lobe solid pulmonary nodule. Past medical history significant for hyperlipidemia, chronic obstructive pulmonary disease with a preoperative FEV1 97% of predicted value, and chronic ongoing tobacco dependence. POD #6 Right lower lobe superior segment wedge for excisional biopsy nodule, completion lobectomy, mediastinal lymph node dissection, and 2 level intercostal nerve block. Prolonged airleak greater than 5 days. The patient was seen and examined in follow-up today March 08, 2025 at his bedside on the third floor cardiac stepdown unit. The patient is up ambulating his room, is awake, alert, oriented x 3 and is in no acute apparent distress. He denies any complaints of pain or shortness of breath at this time. Right pleural chest tube remains in place to waterseal. Tiny airleak present with coughing. Draining thin serosanguineous drainage with 90 mL output in the last 8 hours and 200 mL output in the last 24 hours. Chest x-ray results reviewed. Oxygen saturations are 97% on room air and he is achieving 1500 mL on his incentive spirometry with encouragement. He reports he has been up ambulating in the cardiac stepdown unit hallway independently and tolerating well. Surgical pathology results remain pending. Objective - Vital Signs Vital signs: Vital Signs Temp 98.2 F 03/08/25 08:06 Pulse 81 03/08/25 08:07 Resp 18 03/08/25 08:07 BP 118/70 03/08/25 08:06 Pulse Ox 97 03/08/25 08:06 FiO2 Intake & Output 03/07/25 03/08/25 03/08/25 18:59 06:59 18:59 Intake Total 1048 118 Output Total 70 90 Balance 978 -90 118 Weight 65.7 kg Intake: IV 30 Invasive Line 2 10 Invasive Line 3 10 Invasive Line 4 10 Oral 1018 118 Output: Chest Tube Drainage 70 90 Right 70 90 Other: Voiding Method Toilet Toilet Urinal Urinal # Voids 2 - Exam CONSTITUTIONAL: Appears comfortable, cooperative, no acute distress RESPIRATORY: Lungs sounds diminished bilaterally. Respirations even, nonlabored. Currently on room air with oxygen saturation 97%. Able to achieve 1500 mL on his incentive spirometry. Strong cough. CARDIOVASCULAR: S1, S2 present. Regular rate and rhythm, sinus rhythm on telemetry. Palpable peripheral pulses bilaterally. No edema present. No calf pain or tenderness noted. GASTROINTESTINAL: Abdomen soft, nontender, nondistended. Active bowel sounds present 4 quadrants. Tolerating diet. Passing flatus. GENITOURINARY: Continues to void clear, yellow urine. INTEGUMENTARY: Skin is warm and dry with evidence of good perfusion. Right thoracic incision well approximated and covered with dry intact dressing. NEUROLOGIC: Cranial nerves II through XII intact. No focal deficits. MUSKULOSKELETAL: Able to move all extremities, strength equal bilaterally, gait normal. PSYCHIATRIC: Alert and oriented to person place and time, appropriate affect, intact judgment and insight. INVASIVE LINES AND TUBES: Right pleural chest tubes present and is to waterseal, intermittent airleak present with coughing. Right pleural chest tube with 90 mL serosanguineous drainage overnight, 200 mL last 24 hours. - Allied health notes Allied health notes reviewed: nursing - Labs CBC & Chem 7: 03/07/25 07:11 03/07/25 07:11 - Imaging and Cardiology Chest x-ray: report reviewed, image reviewed Assessment and Plan Assessment: Right lower lobe lung nodule 2.3 x 1.6 cm PET avid superior segment of the right lower lobe solid pulmonary nodule, status post robotic assisted right lower lobe superior segment wedge for excisional biopsy nodule, completion lobectomy Prolonged airleak greater than 5 days Hyperlipidemia Chronic obstructive pulmonary disease with a preoperative FEV1 97% of predicted value Chronic ongoing tobacco dependence Plan: We will clamp his chest tube for 4 hours, after 4 hours we will unclamp chest tube and evaluate for airleak. We will also obtain a chest x-ray while the chest tube is clamped. Encourage use of incentive spirometry 10 times every hour while awake. Continue to monitor daily chest x-rays. Pain control per current as needed orders. Toradol has been added for additional pain control. The importance of risk modification including smoking cessation has been discussed with the patient, he will be offered the number to [id number] on discharge. Surgical pathology results remain pending, will continue to follow pathology results. Increase activity as tolerated. Out of bed for all meals. Encourage ambulation. More recommendations to follow based on patient's clinical course. Time with Patient: Greater than 30
[2025-03-08] MEDS: KETOROLAC 15 MG/ML 1 ML VIAL IVP SCH (11:39)
--- NOTE | 2025-03-08 12:07 | XR ---
EXAMINATION TYPE: XR chest 2V DATE OF EXAM: 03/08/2025 11:59 AM COMPARISON: Chest radiograph from same day CLINICAL INDICATION: Male, 54 years old with history of Ch est tube is clamped, evaluate for pneumothorax; [facility] TECHNIQUE: XR chest 2V Frontal and lateral views of the chest. FINDINGS: Lungs/Pleura: There is no evidence of pleural effusion, focal consolidation, or left pneumothorax. Pulmonary vascularity: Unremarkable. Heart/mediastinum: Cardiomediastinal silhouette is unremarkable. Musculoskeletal: No acute osseous pathology. Other findings: None Lines/Tubes: Right thoracotomy tube with trace pneumothorax. IMPRESSION: Similar Right thoracotomy tubes with trace pneumothorax. [facility], , 03/08/2025 12:04 PM
[2025-03-08 13:16] VITALS: BMI 22.6
--- NOTE | 2025-03-08 14:30 | P.PN ---
Subjective Progress Note Date: 03/08/25 Principal diagnosis: Lung cancer. This is a 54-year-old male patient with a known history of chronic obstructive pulmonary disease, very mild with an FEV1 value 97% of predicted, chronic and ongoing tobacco dependence. He was being followed in our office with Dr. Sterling regarding a right lower lobe mass measuring 2.3 cm that was PET avid. He did undergo robotic bronchoscopy however the results were inconclusive. He was referred to Dr. Sparrow for wedge resection and biopsy. He was brought in today electively for the surgery. He did undergo a right lower lobe superior segment wedge for excisional biopsy nodule. Completion lobectomy, and mediastinal lymph node dissection. 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 Postoperative chest x-ray reveals partial right sided lobectomy with right sided chest tube in place. No evidence of pneumothorax. He is seen today in consultation on the selective care unit. Currently sitting up in bed. Awake and alert in no acute distress. He is maintaining O2 saturations in the upper 90s on 2 L/min per nasal cannula. He is afebrile. Hemodynamically stable. Right sided chest tube remains in place to Pleur-evac and wall suction. Positive leak present. He is educated regarding the importance of the use of the incentive spirometer. The patient is seen today March 03, 2025 in follow-up on the selective care unit. He is currently sitting up at the bedside. Awake and alert in no acute distress. Maintaining good O2 saturations in the 90s on room air oxygen. He is afebrile. Hemodynamically stable. Chest x-ray reveals 2 right-sided chest tubes in place. Postoperative changes of partial right sided lobectomy. No sizable pneumothorax. Chest tubes remain to Pleur-evac and continuous low wall suction at -20 cm per H2O. Approximately 350 mL of serosanguineous drainage since surgery. There is a continuous airleak present. He is working well with the incentive spirometer. White count 18.2. Hemoglobin 13.0. Platelets 232. Sodium 139. Potassium 3.9. Bicarb 28. BUN 9. Creatinine 0.73. Glucose 140. Pathology results are pending. The patient is seen today March 04, 2025 in follow-up on the selective care unit. He is awake and alert in no acute distress. Up ambulating in his room. Maintaining good O2 saturations in the upper 90s on room air oxygen. He is afebrile. Hemodynamically stable. White count 8.4. Hemoglobin 12.5. Platelets 209. Sodium 140. Potassium 4.5. Bicarb 32. BUN 10. Creatinine 0.71. He remains on DuoNeb and elations. Continuing to work well with the incentive spirometer. Heparin for DVT prophylaxis. NicoDerm patch in place. Chest tube remains in place. Intermittent leak is present. Drained 250 mL in the past 24 hours. Serosanguineous. Patient was seen today on 03/05/2025, patient is POD #3 Right lower lobe superior segment wedge for excisional biopsy nodule, completion lobectomy, mediastinal lymph node dissection, and 2 level intercostal nerve block. Patient is doing well, continues to have chest tube in place, presently his chest tube is on waterseal, minimal intermittent air leak noted with cough. Otherwise the patient is doing great. Chest x-ray showed no evidence of pneumothorax. Patient is doing well with incentive spirometry, compliant, he is ambulatory, and I believe the patient will be discharged home once the chest tube is removed most likely in the next 24 hours. Seen today on 03/06/2025, patient is now postoperative day #4, doing great, asymptomatic, continues to have intermittent airleak, chest x-ray showed no appreciable pneumothorax. Clinically the patient is doing great, ambulating, and doing quite well with incentive spirometry. Again as long as the chest tube remains in place, patient is not ready for discharge, hopefully the chest tube could be removed in the next 24 to 48 hours at the most. Patient was seen today on 03/07/2025, he is now postoperative day #5. Doing well asymptomatic, continues to have minimal air leak especially upon coughing. Otherwise the patient is doing great. Chest tube remains in place it is off wall suction on waterseal. Patient has been ambulating in the hallway without any difficulty. WBC 6.9 hemoglobin 13 electrolytes abnormal renal profile is normal Progress note dated March 08, 2025. This patient is postoperative day #6. The patient is resting comfortably in bed. He is on room air. No IV fluids. He has a right sided chest tube in place. He has had a previous right lower lobectomy. Clinically, the patient is doing reasonably well. The plan is to remove the chest tube sometime later today. He has no specific complaints. He is awake and alert. White count is 6.91, hemoglobin 13, hematocrit 38.6, platelet count normal. Sodium 137, potassium 4.5, chlorides 101, CO2 31, BUN 10, creatinine 0.79. Calcium is 9.9. Chest x-ray shows a small right thoracotomy tube, with trace pneumothorax. Objective - Vital Signs Vital signs: Vital Signs Temp 97.9 F 03/08/25 11:37 Pulse 87 03/08/25 13:00 Resp 18 03/08/25 13:00 BP 117/76 03/08/25 11:37 Pulse Ox 96 03/08/25 11:37 FiO2 Intake & Output 03/07/25 03/08/25 03/08/25 18:59 06:59 18:59 Intake Total 1048 236 Output Total 70 90 10 Balance 978 -90 226 Weight 65.7 kg 65.7 kg Intake: IV 30 Invasive Line 2 10 Invasive Line 3 10 Invasive Line 4 10 Oral 1018 236 Output: Chest Tube Drainage 70 90 10 Right 70 90 10 Other: Voiding Method Toilet Toilet Urinal Urinal # Voids 2 1 - Exam No acute distress, oriented 3. Currently on room air. HEENT examination is grossly unremarkable. Mucous membranes are moist. No oral lesions. Neck supple. Full range of motion. No adenopathy thyromegaly or neck vein distention. Cardiovascular examination reveals regular rhythm rate. S1-S2 normal. No S3 or S4. No discernible murmur noted. Lungs reveal clear breath sounds. Breath sounds are equal bilaterally. No adventitious lung sounds including wheezes rhonchi or crackles. Abdomen soft bowel sounds are heard. No masses or tenderness. Extremities are intact. No cyanosis clubbing or edema. Skin is without rash or lesion. Neurologic examination is brief but nonfocal. - Labs CBC & Chem 7: 03/07/25 07:11 03/07/25 07:11 Assessment and Plan Assessment: 2.3 x 1.6 cm PET avid superior segment of the right lower lobe solid pulmonary nodule, S/P right lower lobe superior segment wedge for excisional biopsy nodule. Completion lobectomy. Mediastinal lymph node dissection. 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 Chronic and ongoing tobacco dependence. Mild chronic obstructive pulmonary disease with an FEV1 value 97% of predicted. Plan: Plan dated March 08, 2025. The patient is seen today in room 370. He is resting comfortably in bed. The patient is postop day #6. We will continue to follow the patient, and make recommendations along the way. The patient is S/P right lower lobectomy. Chest tube is in place. Labs, x-rays, medications are reviewed. Will continue to follow make recommendations along the way. Prognosis is guarded. Dictation was produced using [employer]ation software. Please excuse any grammatical, word or spelling errors. Time with Patient: Less than 30
--- NOTE | 2025-03-09 07:16 | XR ---
EXAMINATION TYPE: XR chest 2V DATE OF EXAM: 03/09/2025 6:16 AM COMPARISON: Multiple radiographs, with the most recent on 03/08/2025 TECHNIQUE: XR chest 2V Frontal and lateral views of the chest. CLINICAL INDICATION:Male, 54 years old with history of Status post right lower lobectomy; FINDINGS: Lungs/Pleura: Surgical changes right lower lobectomy with stable position of 2 right thoracotomy tube s. Increasing small right apical pneumothorax Minimal loss lung base linear atelectasis. No pleural e ffusions. Pulmonary vascularity: Unremarkable. Heart/mediastinum: Cardiomediastinal silhouette is unremarkable. Musculoskeletal: No acute osseous pathology. IMPRESSION: Postsurgical changes from right lower lobectomy with slightly increased small right apical pneumothor ax. There are 2 right-sided thoracotomy tubes in stable position. [facility], , 03/09/2025 7:14 AM
[2025-03-09 08:08] LABS: HCT 43.1 % (39.6-50.0); HGB 14.4 g/dL (13.0-17.0); MCH 30.4 pg (27.0-32.0); MCHC 33.4 g/dL (32.0-37.0); MCV 90.9 fL (80.0-97.0); Platelet Count 357 10*3/uL (140-440); RBC 4.74 10*6/uL (4.40-5.60); RDW 11.9 % (11.5-14.5); WBC 10.58 10*3/uL (4.50-10.00)
[2025-03-09 08:28] LABS: African American GFR (CKD) >90 (>60 ml/min/1.73 sqM); Anion Gap 9 mmol/L; Blood Urea Nitrogen 18 mg/dL (9-20); Calcium 9.9 mg/dL (8.4-10.2); Carbon Dioxide 30 mmol/L (22-30); Chloride 99 mmol/L (98-107); Glucose 162 mg/dL (74-99); Non-African American GFR(CKD) >90 (>60 ml/min/1.73 sqM); Potassium 4.9 mmol/L (3.5-5.1); Sodium 138 mmol/L (137-145)
--- NOTE | 2025-03-09 08:35 | P.PN ---
Subjective Progress Note Date: 03/09/25 Principal diagnosis: Right lower lobe lung nodule 2.3 x 1.6 cm PET avid superior segment of the right lower lobe solid pulmonary nodule. Past medical history significant for hyperlipidemia, chronic obstructive pulmonary disease with a preoperative FEV1 97% of predicted value, and chronic ongoing tobacco dependence. POD #7 Right lower lobe superior segment wedge for excisional biopsy nodule, completion lobectomy, mediastinal lymph node dissection, and 2 level intercostal nerve block. Prolonged airleak greater than 5 days. The patient was seen and examined in follow-up today March 09, 2025 at his bedside on the third floor cardiac stepdown unit. He is currently up ambulating in his room. He denies any complaints of pain or shortness of breath. His right pleural chest tube has been clamped for almost 24 hours. X-ray this morning is showing a small right apical pneumothorax. When the chest tube was unclamped there was an air leak present. There is an small intermittent airleak present with coughing. Oxygen saturations are 97% on room air and is achieving 2000 mL on his incentive spirometry with encouragement. Surgical pathology results remain pending. Remote telemetry showing normal sinus rhythm. He has been up ambulating in the stepdown unit hallway independently and tolerating well. Laboratory and chest x-ray results reviewed. Objective - Vital Signs Vital signs: Vital Signs Temp 98.1 F 03/09/25 03:26 Pulse 84 03/09/25 03:26 Resp 18 03/09/25 03:26 BP 121/78 03/09/25 03:26 Pulse Ox 97 03/09/25 03:26 FiO2 Intake & Output 03/08/25 03/09/25 03/09/25 18:59 06:59 18:59 Intake Total 476 540 Output Total 10 Balance 466 540 Weight 65.7 kg 67.4 kg Intake: Oral 476 540 Output: Chest Tube Drainage 10 Right 10 Other: Voiding Method Toilet Toilet Urinal Urinal # Voids 1 - Exam CONSTITUTIONAL: Appears comfortable, cooperative, no acute distress RESPIRATORY: Lungs sounds diminished bilaterally. Respirations even, nonlabored. Currently on room air with oxygen saturation 97%. Able to achieve 2000 mL on his incentive spirometry. Strong cough. CARDIOVASCULAR: S1, S2 present. Regular rate and rhythm, sinus rhythm on telemetry. Palpable peripheral pulses bilaterally. No edema present. No calf pain or tenderness noted. GASTROINTESTINAL: Abdomen soft, nontender, nondistended. Active bowel sounds present 4 quadrants. Tolerating diet. Passing flatus. Bowel movement 03/08/2025. GENITOURINARY: Continues to void clear, yellow urine. INTEGUMENTARY: Skin is warm and dry with evidence of good perfusion. Right thoracic incision well approximated and covered with dry intact dressing. NEUROLOGIC: Cranial nerves II through XII intact. No focal deficits. MUSKULOSKELETAL: Able to move all extremities, strength equal bilaterally, gait normal. PSYCHIATRIC: Alert and oriented to person place and time, appropriate affect, intact judgment and insight. INVASIVE LINES AND TUBES: Right pleural chest tubes present and is to waterseal, intermittent airleak present with coughing. Right pleural chest tube with 10 mL serosanguineous drainage in the last 24 hours. - Allied health notes Allied health notes reviewed: nursing - Labs CBC & Chem 7: 03/09/25 07:53 03/07/25 07:11 Labs: Abnormal Lab Results - Last 24 Hours (Table) 03/09/25 Range/Units 07:53 WBC 10.58 H (4.50-10.00) 10*3/uL MPV 8.7 L (9.5-12.2) fL - Imaging and Cardiology Chest x-ray: report reviewed, image reviewed Assessment and Plan Assessment: Right lower lobe lung nodule 2.3 x 1.6 cm PET avid superior segment of the right lower lobe solid pulmonary nodule, status post robotic assisted right lower lobe superior segment wedge for excisional biopsy nodule, completion lobectomy Prolonged airleak greater than 5 days Hyperlipidemia Chronic obstructive pulmonary disease with a preoperative FEV1 97% of predicted value Chronic ongoing tobacco dependence Plan: Keep right pleural chest tubes to waterseal. Encourage use of incentive spirometry 10 times every hour while awake. Continue to monitor daily chest x-rays. Pain control per current as needed orders. The importance of risk modification including smoking cessation has been discussed with the patient, he will be offered the number to [id number] on discharge. Surgical pathology results remain pending, will continue to follow pathology results. Increase activity as tolerated. Out of bed for all meals. Encourage ambulation. More recommendations to follow based on patient's clinical course. Time with Patient: Greater than 30
--- NOTE | 2025-03-09 14:20 | P.PN ---
Subjective Progress Note Date: 03/09/25 Principal diagnosis: Lung cancer. This is a 54-year-old male patient with a known history of chronic obstructive pulmonary disease, very mild with an FEV1 value 97% of predicted, chronic and ongoing tobacco dependence. He was being followed in our office with Dr. Sterling regarding a right lower lobe mass measuring 2.3 cm that was PET avid. He did undergo robotic bronchoscopy however the results were inconclusive. He was referred to Dr. Sparrow for wedge resection and biopsy. He was brought in today electively for the surgery. He did undergo a right lower lobe superior segment wedge for excisional biopsy nodule. Completion lobectomy, and mediastinal lymph node dissection. 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 Postoperative chest x-ray reveals partial right sided lobectomy with right sided chest tube in place. No evidence of pneumothorax. He is seen today in consultation on the selective care unit. Currently sitting up in bed. Awake and alert in no acute distress. He is maintaining O2 saturations in the upper 90s on 2 L/min per nasal cannula. He is afebrile. Hemodynamically stable. Right sided chest tube remains in place to Pleur-evac and wall suction. Positive leak present. He is educated regarding the importance of the use of the incentive spirometer. The patient is seen today March 03, 2025 in follow-up on the selective care unit. He is currently sitting up at the bedside. Awake and alert in no acute distress. Maintaining good O2 saturations in the 90s on room air oxygen. He is afebrile. Hemodynamically stable. Chest x-ray reveals 2 right-sided chest tubes in place. Postoperative changes of partial right sided lobectomy. No sizable pneumothorax. Chest tubes remain to Pleur-evac and continuous low wall suction at -20 cm per H2O. Approximately 350 mL of serosanguineous drainage since surgery. There is a continuous airleak present. He is working well with the incentive spirometer. White count 18.2. Hemoglobin 13.0. Platelets 232. Sodium 139. Potassium 3.9. Bicarb 28. BUN 9. Creatinine 0.73. Glucose 140. Pathology results are pending. The patient is seen today March 04, 2025 in follow-up on the selective care unit. He is awake and alert in no acute distress. Up ambulating in his room. Maintaining good O2 saturations in the upper 90s on room air oxygen. He is afebrile. Hemodynamically stable. White count 8.4. Hemoglobin 12.5. Platelets 209. Sodium 140. Potassium 4.5. Bicarb 32. BUN 10. Creatinine 0.71. He remains on DuoNeb and elations. Continuing to work well with the incentive spirometer. Heparin for DVT prophylaxis. NicoDerm patch in place. Chest tube remains in place. Intermittent leak is present. Drained 250 mL in the past 24 hours. Serosanguineous. Patient was seen today on 03/05/2025, patient is POD #3 Right lower lobe superior segment wedge for excisional biopsy nodule, completion lobectomy, mediastinal lymph node dissection, and 2 level intercostal nerve block. Patient is doing well, continues to have chest tube in place, presently his chest tube is on waterseal, minimal intermittent air leak noted with cough. Otherwise the patient is doing great. Chest x-ray showed no evidence of pneumothorax. Patient is doing well with incentive spirometry, compliant, he is ambulatory, and I believe the patient will be discharged home once the chest tube is removed most likely in the next 24 hours. Seen today on 03/06/2025, patient is now postoperative day #4, doing great, asymptomatic, continues to have intermittent airleak, chest x-ray showed no appreciable pneumothorax. Clinically the patient is doing great, ambulating, and doing quite well with incentive spirometry. Again as long as the chest tube remains in place, patient is not ready for discharge, hopefully the chest tube could be removed in the next 24 to 48 hours at the most. Patient was seen today on 03/07/2025, he is now postoperative day #5. Doing well asymptomatic, continues to have minimal air leak especially upon coughing. Otherwise the patient is doing great. Chest tube remains in place it is off wall suction on waterseal. Patient has been ambulating in the hallway without any difficulty. WBC 6.9 hemoglobin 13 electrolytes abnormal renal profile is normal Progress note dated March 08, 2025. This patient is postoperative day #6. The patient is resting comfortably in bed. He is on room air. No IV fluids. He has a right sided chest tube in place. He has had a previous right lower lobectomy. Clinically, the patient is doing reasonably well. The plan is to remove the chest tube sometime later today. He has no specific complaints. He is awake and alert. White count is 6.91, hemoglobin 13, hematocrit 38.6, platelet count normal. Sodium 137, potassium 4.5, chlorides 101, CO2 31, BUN 10, creatinine 0.79. Calcium is 9.9. Chest x-ray shows a small right thoracotomy tube, with trace pneumothorax. Progress note dated March 09, 2025. 54-year-old male seen today in room 370. He is postoperative day #7. He is resting comfortably in the room, and currently on room air. The patient is not receiving any IV fluids. The patient remains with a right sided chest tube, which has a leak. Saturations are 96%. He is status post right lower lobectomy. All nodes were negative. 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 Current labs include a white count of 10.6, hemoglobin 14.4, hematocrit 43.1, and a normal platelet count. Sodium 138, potassium 4.9, chloride 79, CO2 30, anion gap 9, BUN 18, creatinine 0.88. Glucose is 162. Calcium is 9.9. Chest x-ray today shows postsurgical changes in the right lower lobe, from the previous right lower lobectomy. There is a small right-sided apical pneumothorax. Chest tubes are noted. Objective - Vital Signs Vital signs: Vital Signs Temp 98.1 F 03/09/25 11:39 Pulse 88 03/09/25 12:00 Resp 18 03/09/25 11:39 BP 114/82 03/09/25 11:39 Pulse Ox 98 03/09/25 11:39 FiO2 Intake & Output 03/08/25 03/09/25 03/09/25 18:59 06:59 18:59 Intake Total 476 540 240 Output Total 10 120 Balance 466 540 120 Weight 65.7 kg 67.4 kg Intake: Oral 476 540 240 Output: Chest Tube Drainage 10 120 Right 10 120 Other: Voiding Method Toilet Toilet Urinal Urinal # Voids 1 2 - Exam No acute distress, oriented 3. Currently on room air. HEENT examination is grossly unremarkable. Mucous membranes are moist. No oral lesions. Neck supple. Full range of motion. No adenopathy thyromegaly or neck vein distention. Cardiovascular examination reveals regular rhythm rate. S1-S2 normal. No S3 or S4. No discernible murmur noted. Lungs reveal clear breath sounds. Breath sounds are equal bilaterally. No adventitious lung sounds including wheezes rhonchi or crackles. Abdomen soft bowel sounds are heard. No masses or tenderness. Extremities are intact. No cyanosis clubbing or edema. Skin is without rash or lesion. Neurologic examination is brief but nonfocal. - Labs CBC & Chem 7: 03/09/25 07:53 03/09/25 07:53 Labs: Abnormal Lab Results - Last 24 Hours (Table) 03/09/25 03/09/25 Range/Units 07:53 07:53 WBC 10.58 H (4.50-10.00) 10*3/uL MPV 8.7 L (9.5-12.2) fL Glucose 162 H (74-99) mg/dL Assessment and Plan Assessment: 2.3 x 1.6 cm PET avid superior segment of the right lower lobe solid pulmonary nodule, S/P right lower lobe superior segment wedge for excisional biopsy nodule. Completion lobectomy. Mediastinal lymph node dissection. 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 Chronic and ongoing tobacco dependence. Mild chronic obstructive pulmonary disease with an FEV1 value 97% of predicted. Plan: Plan dated March 08, 2025. The patient is seen today in room 370. He is resting comfortably in bed. The patient is postop day #6. We will continue to follow the patient, and make recommendations along the way. The patient is S/P right lower lobectomy. Chest tube is in place. Labs, x-rays, medications are reviewed. Will continue to follow make recommendations along the way. Prognosis is guarded. Dictation was produced using [employer] software. Please excuse any grammatical, word or spelling errors. Plan dated March 09, 2025. The patient is postoperative day #7. He is on room air. He has a right chest tube in place. There is still a leak, albeit smaller. Clinically, the patient is stable. Labs, x-rays, and all medications are reviewed. He does have a persistent right sided apical pneumothorax which is very small. We will continue to follow make recommendations along the way. All margins were negative. All lymph nodes were negative for malignancy. 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 Dictation was produced using [employer] software. Please excuse any grammatical, word or spelling errors. Time with Patient: Less than 30
--- NOTE | 2025-03-10 07:22 | XR ---
EXAMINATION TYPE: XR chest 2V DATE OF EXAM: 03/10/2025 6:43 AM COMPARISON: Multiple radiographs, with the most recent on 03/09/2025 TECHNIQUE: XR chest 2V Frontal and lateral views of the chest. CLINICAL INDICATION:Male, 54 years old with history of post op left lower lobectomy; FINDINGS: Lungs/Pleura: Postsurgical changes of right lower lobectomy with stable position of 2 right thoracoto my tubes. No sizable pneumothorax. There is associated elevation of the right hemidiaphragm due to ri ght lung volume loss. No pleural effusion or focal consolidation. Pulmonary vascularity: Unremarkable. Heart/mediastinum: Cardiomediastinal silhouette is unremarkable. Musculoskeletal: No acute osseous pathology. IMPRESSION: Postsurgical changes from right lower lobectomy with no sizable pneumothorax.. There are 2 right-side d thoracotomy tubes in stable position. [facility], , 03/10/2025 7:19 AM
[2025-03-10 07:32] LABS: Basophils # (A) 0.06 10*3/uL (0.00-0.10); Basophils % (A) 0.7 %; Eosinophils # (A) 0.48 10*3/uL (0.04-0.35); Eosinophils % (A) 5.6 %; HCT 39.7 % (39.6-50.0); HGB 13.3 g/dL (13.0-17.0); Lymphocytes # (A) 1.52 10*3/uL (0.90-5.00); Lymphocytes % (A) 17.7 %; MCH 30.0 pg (27.0-32.0); MCHC 33.5 g/dL (32.0-37.0); MCV 89.6 fL (80.0-97.0); Monocytes # (A) 0.79 10*3/uL (0.20-1.00); Monocytes % (A) 9.2 %; Neutrophils # (A) 5.69 10*3/uL (1.80-7.70); Neutrophils % (A) 66.1 %; Platelet Count 362 10*3/uL (140-440); RBC 4.43 10*6/uL (4.40-5.60); RDW 12.1 % (11.5-14.5); WBC 8.60 10*3/uL (4.50-10.00)
--- NOTE | 2025-03-10 11:09 | P.PN ---
Subjective Progress Note Date: 03/10/25 Principal diagnosis: Right lower lobe lung nodule 2.3 x 1.6 cm PET avid superior segment of the right lower lobe solid pulmonary nodule. Past medical history significant for hyperlipidemia, chronic obstructive pulmonary disease with a preoperative FEV1 97% of predicted value, and chronic ongoing tobacco dependence. POD #8 Right lower lobe superior segment wedge for excisional biopsy nodule, completion lobectomy, mediastinal lymph node dissection, and 2 level intercostal nerve block. Prolonged airleak greater than 5 days. The patient was seen and examined in follow-up today March 10, 2025 at his bedside on the third floor cardiac stepdown unit. The patient is awake, alert and oriented x 3. He denies any complaints of pain or shortness of breath at this time. He has been up ambulating in the cardiac stepdown and hallway this a.m. without complaints. Oxygen saturations are 97% on room air and he is achieving 2500 mL on his incentive spirometry with encouragement. Remote telemetry showing normal sinus rhythm. Surgical pathology results have been reviewed with the patient by Dr. Hudson. Right pleural chest tubes remain in place with intermittent airleak present with coughing and speaking. Draining thin serosanguineous drainage with 100 mL of output in the last 24 hours. Laboratory and chest x-ray results reviewed. Objective - Vital Signs Vital signs: Vital Signs Temp 97.4 F L 03/10/25 08:00 Pulse 88 03/10/25 09:45 Resp 18 03/10/25 08:00 BP 105/68 03/10/25 08:00 Pulse Ox 100 03/10/25 08:00 FiO2 Intake & Output 03/09/25 03/10/25 03/10/25 18:59 06:59 18:59 Intake Total 712 380 240 Output Total 140 310 Balance 572 70 240 Intake: IV 20 .9 20 Oral 712 360 240 Output: Chest Tube Drainage 140 10 Right 140 10 Urine 300 Other: Voiding Method Toilet Toilet Urinal Urinal # Voids 2 - Exam CONSTITUTIONAL: Appears comfortable, cooperative, no acute distress RESPIRATORY: Lungs sounds diminished bilaterally. Respirations even, nonlabored. Currently on room air with oxygen saturation 97%. Able to achieve 2500 mL on his incentive spirometry. Strong cough. CARDIOVASCULAR: S1, S2 present. Regular rate and rhythm, sinus rhythm on telem etry. Palpable peripheral pulses bilaterally. No edema present. No calf pain or tenderness noted. GASTROINTESTINAL: Abdomen soft, nontender, nondistended. Active bowel sounds present 4 quadrants. Tolerating diet. Passing flatus. Bowel movement 03/08/2025. GENITOURINARY: Continues to void clear, yellow urine. INTEGUMENTARY: Skin is warm and dry with evidence of good perfusion. Right tho racic incision well approximated and covered with dry intact dressing. NEUROLOGIC: Cranial nerves II through XII intact. No focal deficits. MUSKULOSKELETAL: Able to move all extremities, strength equal bilaterally, gait normal. PSYCHIATRIC: Alert and oriented to person place and time, appropriate affect, intact judgment and insight. INVASIVE LINES AND TUBES: Right pleural chest tubes present and is to waterseal, intermittent airleak present with coughing and speaking. Right pleural chest tub e with 100 mL serosanguineous drainage in the last 24 hours. - Allied health notes Allied health notes reviewed: nursing - Labs CBC & Chem 7: 03/10/25 07:12 03/09/25 07:53 Labs: Abnormal Lab Results - Last 24 Hours (Table) 03/10/25 Range/Units 07:12 MPV 8.7 L (9.5-12.2) fL Immature Gran # 0.06 H (0.00-0.04) 10*3/uL Eosinophils # 0.48 H (0.04-0.35) 10*3/uL - Imaging and Cardiology Chest x-ray: report reviewed, image reviewed Assessment and Plan Assessment: Right lower lobe lung nodule 2.3 x 1.6 cm PET avid superior segment of the right lower lobe solid pulmonary nodule, status post robotic assisted right lower lobe superior segment wedge for excisional biopsy nodule, completion lobectomy Prolonged airleak greater than 5 days Hyperlipidemia Chronic obstructive pulmonary disease with a preoperative FEV1 97% of predicted value Chronic ongoing tobacco dependence Plan: Keep right pleural chest tubes to waterseal. We remove his Elijah chest tube drain today. Continue to monitor for airleak resolution. Encourage use of incentive spirometry 10 times every hour while awake. Continue to monitor daily chest x-rays. Pain control per current as needed orders. The importance of risk modification including smoking cessation has been discussed with the patient, he will be offered the number to [id number] on discharge. Surgical pathology results reviewed with the patient by Dr. Pichert from thoracic surgery Increase activity as tolerated. Out of bed for all meals. Encourage ambulation. More recommendations to follow based on patient's clinical course. Time with Patient: Greater than 30
--- NOTE | 2025-03-10 14:38 | P.PN ---
Subjective Progress Note Date: 03/10/25 Principal diagnosis: Lung cancer. This is a 54-year-old male patient with a known history of chronic obstructive pulmonary disease, very mild with an FEV1 value 97% of predicted, chronic and ongoing tobacco dependence. He was being followed in our office with Dr. Sterling regarding a right lower lobe mass measuring 2.3 cm that was PET avid. He did undergo robotic bronchoscopy however the results were inconclusive. He was referred to Dr. Sparrow for wedge resection and biopsy. He was brought in today electively for the surgery. He did undergo a right lower lobe superior segment wedge for excisional biopsy nodule. Completion lobectomy, and mediastinal lymph node dissection. 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 Postoperative chest x-ray reveals partial right sided lobectomy with right sided chest tube in place. No evidence of pneumothorax. He is seen today in consultation on the selective care unit. Currently sitting up in bed. Awake and alert in no acute distress. He is maintaining O2 saturations in the upper 90s on 2 L/min per nasal cannula. He is afebrile. Hemodynamically stable. Right sided chest tube remains in place to Pleur-evac and wall suction. Positive leak present. He is educated regarding the importance of the use of the incentive spirometer. The patient is seen today March 03, 2025 in follow-up on the selective care unit. He is currently sitting up at the bedside. Awake and alert in no acute distress. Maintaining good O2 saturations in the 90s on room air oxygen. He is afebrile. Hemodynamically stable. Chest x-ray reveals 2 right-sided chest tubes in place. Postoperative changes of partial right sided lobectomy. No sizable pneumothorax. Chest tubes remain to Pleur-evac and continuous low wall suction at -20 cm per H2O. Approximately 350 mL of serosanguineous drainage since surgery. There is a continuous airleak present. He is working well with the incentive spirometer. White count 18.2. Hemoglobin 13.0. Platelets 232. Sodium 139. Potassium 3.9. Bicarb 28. BUN 9. Creatinine 0.73. Glucose 140. Pathology results are pending. The patient is seen today March 04, 2025 in follow-up on the selective care unit. He is awake and alert in no acute distress. Up ambulating in his room. Maintaining good O2 saturations in the upper 90s on room air oxygen. He is afebrile. Hemodynamically stable. White count 8.4. Hemoglobin 12.5. Platelets 209. Sodium 140. Potassium 4.5. Bicarb 32. BUN 10. Creatinine 0.71. He remains on DuoNeb and elations. Continuing to work well with the incentive spirometer. Heparin for DVT prophylaxis. NicoDerm patch in place. Chest tube remains in place. Intermittent leak is present. Drained 250 mL in the past 24 hours. Serosanguineous. Patient was seen today on 03/05/2025, patient is POD #3 Right lower lobe superior segment wedge for excisional biopsy nodule, completion lobectomy, mediastinal lymph node dissection, and 2 level intercostal nerve block. Patient is doing well, continues to have chest tube in place, presently his chest tube is on waterseal, minimal intermittent air leak noted with cough. Otherwise the patient is doing great. Chest x-ray showed no evidence of pneumothorax. Patient is doing well with incentive spirometry, compliant, he is ambulatory, and I believe the patient will be discharged home once the chest tube is removed most likely in the next 24 hours. Seen today on 03/06/2025, patient is now postoperative day #4, doing great, asymptomatic, continues to have intermittent airleak, chest x-ray showed no appreciable pneumothorax. Clinically the patient is doing great, ambulating, and doing quite well with incentive spirometry. Again as long as the chest tube remains in place, patient is not ready for discharge, hopefully the chest tube could be removed in the next 24 to 48 hours at the most. Patient was seen today on 03/07/2025, he is now postoperative day #5. Doing well asymptomatic, continues to have minimal air leak especially upon coughing. Otherwise the patient is doing great. Chest tube remains in place it is off wall suction on waterseal. Patient has been ambulating in the hallway without any difficulty. WBC 6.9 hemoglobin 13 electrolytes abnormal renal profile is normal Progress note dated March 08, 2025. This patient is postoperative day #6. The patient is resting comfortably in bed. He is on room air. No IV fluids. He has a right sided chest tube in place. He has had a previous right lower lobectomy. Clinically, the patient is doing reasonably well. The plan is to remove the chest tube sometime later today. He has no specific complaints. He is awake and alert. White count is 6.91, hemoglobin 13, hematocrit 38.6, platelet count normal. Sodium 137, potassium 4.5, chlorides 101, CO2 31, BUN 10, creatinine 0.79. Calcium is 9.9. Chest x-ray shows a small right thoracotomy tube, with trace pneumothorax. Progress note dated March 09, 2025. 54-year-old male seen today in room 370. He is postoperative day #7. He is resting comfortably in the room, and currently on room air. The patient is not receiving any IV fluids. The patient remains with a right sided chest tube, which has a leak. Saturations are 96%. He is status post right lower lobectomy. All nodes were negative. 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 Current labs include a white count of 10.6, hemoglobin 14.4, hematocrit 43.1, and a normal platelet count. Sodium 138, potassium 4.9, chloride 79, CO2 30, anion gap 9, BUN 18, creatinine 0.88. Glucose is 162. Calcium is 9.9. Chest x-ray today shows postsurgical changes in the right lower lobe, from the previous right lower lobectomy. There is a small right-sided apical pneumothorax. Chest tubes are noted. Progress note dated March 10, 2025. 54-year-old male seen today in room 370. He is postoperative day #8. The patient is resting comfortably in bed. He is awake and alert. Right chest tube remains. He is on room air. He is not receiving any IV fluids. Current laboratory data includes a white count of 8.6, hemoglobin 13.3, hematocrit 39.7, and a normal platelet count. No additional laboratory data today. Chest x-ray shows postsurgical changes, from the previous right lower lobectomy, with no evidence of pneumothorax. Objective - Vital Signs Vital signs: Vital Signs Temp 98.4 F 03/10/25 12:00 Pulse 80 03/10/25 14:00 Resp 18 03/10/25 14:00 BP 135/82 03/10/25 12:00 Pulse Ox 99 03/10/25 12:00 FiO2 Intake & Output 03/09/25 03/10/25 03/10/25 18:59 06:59 18:59 Intake Total 712 380 480 Output Total 140 310 Balance 572 70 480 Intake: IV 20 .9 20 Oral 712 360 480 Output: Chest Tube Drainage 140 10 Right 140 10 Urine 300 Other: Voiding Method Toilet Toilet Urinal Urinal # Voids 2 - Exam No acute distress, oriented 3. Currently on room air. HEENT examination is grossly unremarkable. Mucous membranes are moist. No oral lesions. Neck supple. Full range of motion. No adenopathy thyromegaly or neck vein distention. Cardiovascular examination reveals regular rhythm rate. S1-S2 normal. No S3 or S4. No discernible murmur noted. Lungs reveal clear breath sounds. Breath sounds are equal bilaterally. No adventitious lung sounds including wheezes rhonchi or crackles. Abdomen soft bowel sounds are heard. No masses or tenderness. Extremities are intact. No cyanosis clubbing or edema. Skin is without rash or lesion. Neurologic examination is brief but nonfocal. - Labs CBC & Chem 7: 03/10/25 07:12 03/09/25 07:53 Labs: Abnormal Lab Results - Last 24 Hours (Table) 03/10/25 Range/Units 07:12 MPV 8.7 L (9.5-12.2) fL Immature Gran # 0.06 H (0.00-0.04) 10*3/uL Eosinophils # 0.48 H (0.04-0.35) 10*3/uL Assessment and Plan Assessment: 2.3 x 1.6 cm PET avid superior segment of the right lower lobe solid pulmonary nodule, S/P right lower lobe superior segment wedge for excisional biopsy nodule. Completion lobectomy. Mediastinal lymph node dissection. 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 Non-small cell neuroendocrine tumor, with lipidic pattern, all lymph nodes, sample, were negative. Chronic and ongoing tobacco dependence. Mild chronic obstructive pulmonary disease with an FEV1 value 97% of predicted. Plan: Plan dated March 08, 2025. The patient is seen today in room 370. He is resting comfortably in bed. The patient is postop day #6. We will continue to follow the patient, and make recommendations along the way. The patient is S/P right lower lobectomy. Chest tube is in place. Labs, x-rays, medications are reviewed. Will continue to f ollow make recommendations along the way. Prognosis is guarded. Dictation was produced using [employer] software. Please excuse any grammatical, word or spelling errors. Plan dated March 09, 2025. The patient is postoperative day #7. He is on room air. He has a right chest tube in place. There is still a leak, albeit smaller. Clinically, the patient is stable. Labs, x-rays, and all medications are reviewed. He does have a persistent right sided apical pneumothorax which is very small. We will continue to follow make recommendations along the way. All margins were negative. All lymph nodes were negative for malignancy. 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 Dictation was produced using [employer] software. Please excuse any grammatical, word or spelling errors. Plan dated March 10, 2025. The patient is postoperative day #8. He is resting comfortably in bed. No acute distress. The patient is currently on room air. Not receiving any IV fluids. The patient's right sided chest tube is still in place. We will continue to follow make recommendations along the way. Labs, x-rays, and medications are reviewed. Prognosis is guarded. Dictation was produced using [employer] software. Please excuse any grammatical, word or spelling errors. Time with Patient: Less than 30
[2025-03-11 06:56] LABS: HCT 37.9 % (39.6-50.0); HGB 12.6 g/dL (13.0-17.0); MCH 30.1 pg (27.0-32.0); MCHC 33.2 g/dL (32.0-37.0); MCV 90.7 fL (80.0-97.0); Platelet Count 370 10*3/uL (140-440); RBC 4.18 10*6/uL (4.40-5.60); RDW 12.1 % (11.5-14.5); WBC 6.27 10*3/uL (4.50-10.00)
[2025-03-11 07:17] LABS: African American GFR (CKD) >90 (>60 ml/min/1.73 sqM); Anion Gap 6 mmol/L; Blood Urea Nitrogen 14 mg/dL (9-20); Calcium 9.2 mg/dL (8.4-10.2); Carbon Dioxide 27 mmol/L (22-30); Chloride 107 mmol/L (98-107); Glucose 82 mg/dL (74-99); Non-African American GFR(CKD) >90 (>60 ml/min/1.73 sqM); Potassium 4.4 mmol/L (3.5-5.1); Sodium 140 mmol/L (137-145)
--- NOTE | 2025-03-11 07:28 | XR ---
EXAMINATION TYPE: XR chest 2V DATE OF EXAM: 03/11/2025 6:38 AM COMPARISON: Multiple radiographs, with the most recent on 03/10/2025 TECHNIQUE: XR chest 2V Frontal and lateral views of the chest. CLINICAL INDICATION:Male, 54 years old with history of post lobectomy; FINDINGS: Lungs/Pleura: Postsurgical changes of right lower lobectomy with stable position of right thoracotomy tube. Increased small to moderate size right pneumothorax. There is associated elevation of the righ t hemidiaphragm due to right lung volume loss. No pleural effusion or focal consolidation. Pulmonary vascularity: Unremarkable. Heart/mediastinum: Cardiomediastinal silhouette is unremarkable. Musculoskeletal: No acute osseous pathology. IMPRESSION: Postsurgical changes from right lower lobectomy increasing size of [id number] size right pneum othorax with right thoracotomy tube in place. A [place] critical message alert has been initiated for Sabrina Reynoso via the [facility] on 03/11/2025 7:25 AM. This message alert has been sent to Sabrina Reynoso via the [email or web address] provided by the clinician for the receipt of Radiology Critical Findings. Message ID [id number]. [facility], , 03/11/2025 7:26 AM
--- NOTE | 2025-03-11 07:39 | P.PN ---
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 Previous medical history of hyperlipidemia, chronic obstructive pulmonary disease, and chronic ongoing tobacco dependence. POD #9 Right lower lobe superior segment wedge for excisional biopsy nodule, completion lobectomy, mediastinal lymph node dissection, and 2 level intercostal nerve block. Prolonged airleak greater than 5 days. The patient was seen and examined this morning sitting up in recliner on the cardiac stepdown unit in no acute distress. Denies pain or shortness of breath. Currently sinus rhythm on the monitor, hemodynamically stable, remains on room air with oxygen saturation in the mid 90s. Right pleural chest tube present to waterseal, airleak present with coughing. Able to achieve 3000 mL on incentive spirometry. Patient has been up ambulatory and is restless, wanting to go home. No other new concerns. Objective - Vital Signs Vital signs: Vital Signs Temp 97.8 F 03/10/25 23:45 Pulse 86 03/11/25 03:30 Resp 16 03/11/25 03:30 BP 113/72 03/11/25 03:30 Pulse Ox 94 L 03/11/25 03:30 FiO2 Intake & Output 03/10/25 03/11/25 03/11/25 18:59 06:59 18:59 Intake Total 720 Output Total 25 67 Balance 695 -67 Weight 63.6 kg Intake: Oral 720 Output: Chest Tube Drainage 25 67 Right 25 67 Other: Voiding Method Toilet Toilet Urinal Urinal # Voids 4 - Exam CONSTITUTIONAL: Appears comfortable, cooperative, no acute distress RESPIRATORY: Lungs sounds diminished bilaterally. Respirations even, nonlab ored. Currently on room air with oxygen saturation 94%. Able to achieve 3000 mL on incentive spirometry. Strong cough. CARDIOVASCULAR: S1, S2 present. Regular rate and rhythm, sinus rhythm on t elemetry. Palpable peripheral pulses bilaterally. No edema present. No calf pain or tenderness noted. SCDs present. GASTROINTESTINAL: Abdomen soft, nontender, nondistended. Active bowel sounds p resent 4 quadrants. Tolerating diet. Positive bowel movement 7/ GENITOURINARY: Continues to void INTEGUMENTARY: Skin is warm and dry with evidence of good perfusion. Thoracic incision well approximated and covered with dry intact dressing. NEUROLOGIC: Cranial nerves II through XII intact MUSKULOSKELETAL: Able to move all extremities, strength equal bilaterally, gait normal PSYCHIATRIC: Alert and oriented to person place and time, appropriate affect, intact judgment and insight INVASIVE LINES AND TUBES: Right pleural chest tube present to waterseal, positive airleak with coughing, 40 mL serosanguineous drainage overnight, 120 mL in the last 24 hours - Allied health notes Allied health notes reviewed: nursing - Labs CBC & Chem 7: 03/11/25 06:00 03/11/25 06:00 Labs: Abnormal Lab Results - Last 24 Hours (Table) 03/10/25 03/11/25 Range/Units 07:12 06:00 RBC 4.18 L (4.40-5.60) 10*6/uL Hgb 12.6 L (13.0-17.0) g/dL Hct 37.9 L (39.6-50.0) % MPV 8.7 L 9.1 L (9.5-12.2) fL Immature Gran # 0.06 H (0.00-0.04) 10*3/uL Eosinophils # 0.48 H (0.04-0.35) 10*3/uL - Imaging and Cardiology Chest x-ray: report reviewed, image reviewed Assessment and Plan Assessment: Right lower lobe lung nodule, pathology 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 History of hyperlipidemia Chronic obstructive pulmonary disease Chronic ongoing tobacco dependence Plan: Keep right pleural chest tubes to waterseal, continue to monitor for airleak resolution Encourage use of incentive spirometry 10 times every hour while awake Increase activity as tolerated Continue to monitor daily chest x-rays Pain control per current occasion regimen More recommendations to follow based on patient's clinical course
--- NOTE | 2025-03-11 11:34 | P.PN ---
Subjective Progress Note Date: 03/11/25 Principal diagnosis: Lung cancer. This is a 54-year-old male patient with a known history of chronic obstructive pulmonary disease, very mild with an FEV1 value 97% of predicted, chronic and ongoing tobacco dependence. He was being followed in our office with Dr. Sterling regarding a right lower lobe mass measuring 2.3 cm that was PET avid. He did undergo robotic bronchoscopy however the results were inconclusive. He was referred to Dr. Sparrow for wedge resection and biopsy. He was brought in today electively for the surgery. He did undergo a right lower lobe superior segment wedge for excisional biopsy nodule. Completion lobectomy, and mediastinal lymph node dissection. 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 Postoperative chest x-ray reveals partial right sided lobectomy with right sided chest tube in place. No evidence of pneumothorax. He is seen today in consultation on the selective care unit. Currently sitting up in bed. Awake and alert in no acute distress. He is maintaining O2 saturations in the upper 90s on 2 L/min per nasal cannula. He is afebrile. Hemodynamically stable. Right sided chest tube remains in place to Pleur-evac and wall suction. Positive leak present. He is educated regarding the importance of the use of the incentive spirometer. The patient is seen today March 03, 2025 in follow-up on the selective care unit. He is currently sitting up at the bedside. Awake and alert in no acute distress. Maintaining good O2 saturations in the 90s on room air oxygen. He is afebrile. Hemodynamically stable. Chest x-ray reveals 2 right-sided chest tubes in place. Postoperative changes of partial right sided lobectomy. No sizable pneumothorax. Chest tubes remain to Pleur-evac and continuous low wall suction at -20 cm per H2O. Approximately 350 mL of serosanguineous drainage since surgery. There is a continuous airleak present. He is working well with the incentive spirometer. White count 18.2. Hemoglobin 13.0. Platelets 232. Sodium 139. Potassium 3.9. Bicarb 28. BUN 9. Creatinine 0.73. Glucose 140. Pathology results are pending. The patient is seen today March 04, 2025 in follow-up on the selective care unit. He is awake and alert in no acute distress. Up ambulating in his room. Maintaining good O2 saturations in the upper 90s on room air oxygen. He is afebrile. Hemodynamically stable. White count 8.4. Hemoglobin 12.5. Platelets 209. Sodium 140. Potassium 4.5. Bicarb 32. BUN 10. Creatinine 0.71. He remains on DuoNeb and elations. Continuing to work well with the incentive spirometer. Heparin for DVT prophylaxis. NicoDerm patch in place. Chest tube remains in place. Intermittent leak is present. Drained 250 mL in the past 24 hours. Serosanguineous. Patient was seen today on 03/05/2025, patient is POD #3 Right lower lobe superior segment wedge for excisional biopsy nodule, completion lobectomy, mediastinal lymph node dissection, and 2 level intercostal nerve block. Patient is doing well, continues to have chest tube in place, presently his chest tube is on waterseal, minimal intermittent air leak noted with cough. Otherwise the patient is doing great. Chest x-ray showed no evidence of pneumothorax. Patient is doing well with incentive spirometry, compliant, he is ambulatory, and I believe the patient will be discharged home once the chest tube is removed most likely in the next 24 hours. Seen today on 03/06/2025, patient is now postoperative day #4, doing great, asymptomatic, continues to have intermittent airleak, chest x-ray showed no appreciable pneumothorax. Clinically the patient is doing great, ambulating, and doing quite well with incentive spirometry. Again as long as the chest tube remains in place, patient is not ready for discharge, hopefully the chest tube could be removed in the next 24 to 48 hours at the most. Patient was seen today on 03/07/2025, he is now postoperative day #5. Doing well asymptomatic, continues to have minimal air leak especially upon coughing. Otherwise the patient is doing great. Chest tube remains in place it is off wall suction on waterseal. Patient has been ambulating in the hallway without any difficulty. WBC 6.9 hemoglobin 13 electrolytes abnormal renal profile is normal Progress note dated March 08, 2025. This patient is postoperative day #6. The patient is resting comfortably in bed. He is on room air. No IV fluids. He has a right sided chest tube in place. He has had a previous right lower lobectomy. Clinically, the patient is doing reasonably well. The plan is to remove the chest tube sometime later today. He has no specific complaints. He is awake and alert. White count is 6.91, hemoglobin 13, hematocrit 38.6, platelet count normal. Sodium 137, potassium 4.5, chlorides 101, CO2 31, BUN 10, creatinine 0.79. Calcium is 9.9. Chest x-ray shows a small right thoracotomy tube, with trace pneumothorax. Progress note dated March 09, 2025. 54-year-old male seen today in room 370. He is postoperative day #7. He is resting comfortably in the room, and currently on room air. The patient is not receiving any IV fluids. The patient remains with a right sided chest tube, which has a leak. Saturations are 96%. He is status post right lower lobectomy. All nodes were negative. 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 Current labs include a white count of 10.6, hemoglobin 14.4, hematocrit 43.1, and a normal platelet count. Sodium 138, potassium 4.9, chloride 79, CO2 30, anion gap 9, BUN 18, creatinine 0.88. Glucose is 162. Calcium is 9.9. Chest x-ray today shows postsurgical changes in the right lower lobe, from the previous right lower lobectomy. There is a small right-sided apical pneumothorax. Chest tubes are noted. Progress note dated March 10, 2025. 54-year-old male seen today in room 370. He is postoperative day #8. The patient is resting comfortably in bed. He is awake and alert. Right chest tube remains. He is on room air. He is not receiving any IV fluids. Current laboratory data includes a white count of 8.6, hemoglobin 13.3, hematocrit 39.7, and a normal platelet count. No additional laboratory data today. Chest x-ray shows postsurgical changes, from the previous right lower lobectomy, with no evidence of pneumothorax. Progress note dated March 11, 2025. The patient is seen today in room 370. The patient has a right chest tube in place. There is evidence of a right pneumothorax. He is on room air. He is not receiving any IV fluids. The patient has been followed by cardiothoracic surgery. He has no specific complaints. Today is postoperative day #9. Current laboratory data includes a white count of 6.3, hemoglobin 12.6, hematocrit 37.9, and a normal platelet count. Sodium 140, potassium 4.4, chlorides 107, CO2 27, BUN 14, creatinine 0.73. Glucose is 82. Calcium is 9.2. Chest x-ray shows an increasing size of the right sided pneumothorax. Chest tube remains in place. Objective - Vital Signs Vital signs: Vital Signs Temp 98.0 F 03/11/25 08:10 Pulse 84 03/11/25 08:10 Resp 16 03/11/25 08:10 BP 125/69 03/11/25 08:10 Pulse Ox 94 L 03/11/25 03:30 FiO2 Intake & Output 03/10/25 03/11/25 03/11/25 18:59 06:59 18:59 Intake Total 720 Output Total Balance 695 -67 Weight 63.6 kg Intake: Oral 720 Output: Chest Tube Drainage Right 25 Other: Voiding Method Toilet Toilet Urinal Urinal # Voids 4 - Exam No acute distress, oriented 3. Currently on room air. HEENT examination is grossly unremarkable. Mucous membranes are moist. No oral lesions. Neck supple. Full range of motion. No adenopathy thyromegaly or neck vein distention. Cardiovascular examination reveals regular rhythm rate. S1-S2 normal. No S3 or S4. No discernible murmur noted. Lungs reveal clear breath sounds. Breath sounds are equal bilaterally. No adventitious lung sounds including wheezes rhonchi or crackles. Right sided chest tube noted. Abdomen soft bowel sounds are heard. No masses or tenderness. Extremities are intact. No cyanosis clubbing or edema. Skin is without rash or lesion. Neurologic examination is brief but nonfocal. - Labs CBC & Chem 7: 03/11/25 06:00 03/11/25 06:00 Labs: Abnormal Lab Results - Last 24 Hours (Table) 03/11/25 Range/Units 06:00 RBC 4.18 L (4.40-5.60) 10*6/uL Hgb 12.6 L (13.0-17.0) g/dL Hct 37.9 L (39.6-50.0) % MPV 9.1 L (9.5-12.2) fL Assessment and Plan Assessment: 2.3 x 1.6 cm PET avid superior segment of the right lower lobe solid pulmonary nodule, S/P right lower lobe superior segment wedge for excisional biopsy nodule. Completion lobectomy. Mediastinal lymph node dissection. 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 Non-small cell neuroendocrine tumor, with lipidic pattern, all lymph nodes, sample, were negative. Chronic and ongoing tobacco dependence. Mild chronic obstructive pulmonary disease with an FEV1 value 97% of predicted. Plan: Plan dated March 08, 2025. The patient is seen today in room 370. He is resting comfortably in bed. The patient is postop day #6. We will continue to follow the patient, and make recommendations along the way. The patient is S/P right lower lobectomy. Chest tube is in place. Labs, x-rays, medications are reviewed. Will continue to follow make recommendations along the way. Prognosis is guarded. Dictation was produced using [employer], IP software. Please excuse any grammatical, word or spelling errors. Plan dated March 09, 2025. The patient is postoperative day #7. He is on room air. He has a right chest tube in place. There is still a leak, albeit smaller. Clinically, the patient is stable. Labs, x-rays, and all medications are reviewed. He does have a persistent right sided apical pneumothorax which is very small. We will continue to follow make recommendations along the way. All margins were negative. All lymph nodes were negative for malignancy. 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 Dictation was produced using [employer], IP software. Please excuse any grammatical, word or spelling errors. Plan dated March 10, 2025. The patient is postoperative day #8. He is resting comfortably in bed. No acute distress. The patient is currently on room air. Not receiving any IV fluids. The patient's right sided chest tube is still in place. We will continue to follow make recommendations along the way. Labs, x-rays, and medications are reviewed. Prognosis is guarded. Dictation was produced using [employer], IP software. Please excuse any grammatical, word or spelling errors. Plan dated March 11, 2025. The patient is postoperative day #9. He is resting comfortably. On room air. No IV fluids. Chest x-ray shows a slightly enlarged right-sided pneumothorax. Chest tube remains in place. He is being followed by cardiothoracic surgery. Labs, x-rays, medications are reviewed. We will continue to follow make recommendations along the way. Prognosis is guarded. Dictation was produced using [employer]ation software. Please excuse any grammatical, word or spelling errors. Time with Patient: Less than 30
--- NOTE | 2025-03-12 07:43 | P.PN ---
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 Previous medical history of hyperlipidemia, chronic obstructive pulmonary disease, and chronic ongoing tobacco dependence. POD #10 Right lower lobe superior segment wedge for excisional biopsy nodule, completion lobectomy, mediastinal lymph node dissection, and 2 level intercostal nerve block. Prolonged airleak greater than 5 days. The patient was seen and examined this morning sitting up at the edge of the bed on the cardiac stepdown unit in no acute distress. Denies pain or shortness of breath. Currently sinus rhythm on the monitor, hemodynamically stable, remains on room air with oxygen saturation in the mid 90s, able to achieve 2000 mL on incentive spirometry. Right pleural chest tube present to waterseal, airleak present with coughing only. Patient has been up ambulatory and is restless, wanting to go home, states he has a to go to on Saturday. Dr. Sparrow discussed with the patient yesterday that if he still has an air leak on Saturday we may discharge him with Heimlich valve present. Chest x-ray reviewed, appears better today. No other new concerns. Objective - Vital Signs Vital signs: Vital Signs Temp 97.8 F 03/12/25 04:00 Pulse 88 03/12/25 04:00 Resp 16 03/12/25 04:00 BP 129/80 03/12/25 04:00 Pulse Ox 98 03/12/25 04:00 FiO2 Intake & Output 03/11/25 03/12/25 03/12/25 18:59 06:59 18:59 Intake Total 476 240 Output Total 60 320 Balance 416 -80 Weight 67.2 kg Intake: Oral 476 240 Output: Chest Tube Drainage 60 Right 60 Drainage 60 Right Chest 60 Urine 260 Other: Voiding Method Toilet Toilet Urinal Urinal - Exam CONSTITUTIONAL: Appears comfortable, cooperative, no acute distress RESPIRATORY: Lungs sounds diminished bilaterally. Respirations even, nonlabored. Currently on room air with oxygen saturation 98%. Able to achieve 2000 mL on incentive spirometry. Strong cough. CARDIOVASCULAR: S1, S2 present. Regular rate and rhythm, sinus rhythm on telemetry. Palpable peripheral pulses bilaterally. No edema present. No calf pain or tenderness noted. SCDs present. GASTROINTESTINAL: Abdomen soft, nontender, nondistended. Active bowel sounds present 4 quadrants. Tolerating diet. Positive bowel movement 03/10 GENITOURINARY: Continues to void INTEGUMENTARY: Skin is warm and dry with evidence of good perfusion. Thoracic incision well approximated and covered with dry intact dressing. NEUROLOGIC: Cranial nerves II through XII intact MUSKULOSKELETAL: Able to move all extremities, strength equal bilaterally, gait normal PSYCHIATRIC: Alert and oriented to person place and time, appropriate affect, intact judgment and insight INVASIVE LINES AND TUBES: Right pleural chest tube present to waterseal, positive airleak with coughing, 30 mL serosanguineous drainage overnight, 110 mL in the last 24 hours - Allied health notes Allied health notes reviewed: nursing - Labs CBC & Chem 7: 03/11/25 06:00 03/11/25 06:00 - Imaging and Cardiology Chest x-ray: image reviewed Assessment and Plan Assessment: Right lower lobe lung nodule, pathology 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 History of hyperlipidemia Chronic obstructive pulmonary disease Chronic ongoing tobacco dependence Plan: Keep right pleural chest tubes to waterseal, continue to monitor for airleak resolution If no resolution of airleak by Saturday likely will place Heimlich valve so patient may be discharged to attend his sister's Encourage use of incentive spirometry 10 times every hour while awake Increase activity as tolerated Continue to monitor daily chest x-rays Pain control per current occasion regimen More recommendations to follow based on patient's clinical course
--- NOTE | 2025-03-12 07:56 | XR ---
EXAMINATION TYPE: XR chest 2V DATE OF EXAM: 03/12/2025 6:22 AM COMPARISON: Multiple radiographs, with the most recent on 03/11/2025 TECHNIQUE: XR chest 2V Frontal and lateral views of the chest. CLINICAL INDICATION:Male, 54 years old with history of post lobectomy; FINDINGS: Lungs/Pleura: Postsurgical changes of right lower lobectomy with stable position of right thoracotomy tube. No discrete pneumothorax. There is associated elevation of the right hemidiaphragm due to righ t lung volume loss. No pleural effusion or focal consolidation. Pulmonary vascularity: Unremarkable. Heart/mediastinum: Cardiomediastinal silhouette is unremarkable. Musculoskeletal: No acute osseous pathology. IMPRESSION: Postsurgical changes from right lower lobectomy with no discrete pneumothorax. Right thoracotomy tube is in place. [facility], , 03/12/2025 7:54 AM
[2025-03-12 09:17] LABS: HCT 38.0 % (39.6-50.0); HGB 12.6 g/dL (13.0-17.0); MCH 30.5 pg (27.0-32.0); MCHC 33.2 g/dL (32.0-37.0); MCV 92.0 fL (80.0-97.0); Platelet Count 422 10*3/uL (140-440); RBC 4.13 10*6/uL (4.40-5.60); RDW 12.2 % (11.5-14.5); WBC 9.22 10*3/uL (4.50-10.00)
[2025-03-12 09:31] LABS: African American GFR (CKD) >90 (>60 ml/min/1.73 sqM); Anion Gap 8 mmol/L; Blood Urea Nitrogen 14 mg/dL (9-20); Calcium 9.7 mg/dL (8.4-10.2); Carbon Dioxide 29 mmol/L (22-30); Chloride 103 mmol/L (98-107); Glucose 149 mg/dL (74-99); Non-African American GFR(CKD) >90 (>60 ml/min/1.73 sqM); Potassium 4.4 mmol/L (3.5-5.1); Sodium 140 mmol/L (137-145)
--- NOTE | 2025-03-12 13:47 | P.PN ---
Subjective Progress Note Date: 03/12/25 Principal diagnosis: Lung cancer. This is a 54-year-old male patient with a known history of chronic obstructive pulmonary disease, very mild with an FEV1 value 97% of predicted, chronic and ongoing tobacco dependence. He was being followed in our office with Dr. Sterling regarding a right lower lobe mass measuring 2.3 cm that was PET avid. He did undergo robotic bronchoscopy however the results were inconclusive. He was referred to Dr. Sparrow for wedge resection and biopsy. He was brought in today electively for the surgery. He did undergo a right lower lobe superior segment wedge for excisional biopsy nodule. Completion lobectomy, and mediastinal lymph node dissection. 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 Postoperative chest x-ray reveals partial right sided lobectomy with right sided chest tube in place. No evidence of pneumothorax. He is seen today in consultation on the selective care unit. Currently sitting up in bed. Awake and alert in no acute distress. He is maintaining O2 saturations in the upper 90s on 2 L/min per nasal cannula. He is afebrile. Hemodynamically stable. Right sided chest tube remains in place to Pleur-evac and wall suction. Positive leak present. He is educated regarding the importance of the use of the incentive spirometer. The patient is seen today March 03, 2025 in follow-up on the selective care unit. He is currently sitting up at the bedside. Awake and alert in no acute distress. Maintaining good O2 saturations in the 90s on room air oxygen. He is afebrile. Hemodynamically stable. Chest x-ray reveals 2 right-sided chest tubes in place. Postoperative changes of partial right sided lobectomy. No sizable pneumothorax. Chest tubes remain to Pleur-evac and continuous low wall suction at -20 cm per H2O. Approximately 350 mL of serosanguineous drainage since surgery. There is a continuous airleak present. He is working well with the incentive spirometer. White count 18.2. Hemoglobin 13.0. Platelets 232. Sodium 139. Potassium 3.9. Bicarb 28. BUN 9. Creatinine 0.73. Glucose 140. Pathology results are pending. The patient is seen today March 04, 2025 in follow-up on the selective care unit. He is awake and alert in no acute distress. Up ambulating in his room. Maintaining good O2 saturations in the upper 90s on room air oxygen. He is afebrile. Hemodynamically stable. White count 8.4. Hemoglobin 12.5. Platelets 209. Sodium 140. Potassium 4.5. Bicarb 32. BUN 10. Creatinine 0.71. He remains on DuoNeb and elations. Continuing to work well with the incentive spirometer. Heparin for DVT prophylaxis. NicoDerm patch in place. Chest tube remains in place. Intermittent leak is present. Drained 250 mL in the past 24 hours. Serosanguineous. Patient was seen today on 03/05/2025, patient is POD #3 Right lower lobe superior segment wedge for excisional biopsy nodule, completion lobectomy, mediastinal lymph node dissection, and 2 level intercostal nerve block. Patient is doing well, continues to have chest tube in place, presently his chest tube is on waterseal, minimal intermittent air leak noted with cough. Otherwise the patient is doing great. Chest x-ray showed no evidence of pneumothorax. Patient is doing well with incentive spirometry, compliant, he is ambulatory, and I believe the patient will be discharged home once the chest tube is removed most likely in the next 24 hours. Seen today on 03/06/2025, patient is now postoperative day #4, doing great, asymptomatic, continues to have intermittent airleak, chest x-ray showed no appreciable pneumothorax. Clinically the patient is doing great, ambulating, and doing quite well with incentive spirometry. Again as long as the chest tube remains in place, patient is not ready for discharge, hopefully the chest tube could be removed in the next 24 to 48 hours at the most. Patient was seen today on 03/07/2025, he is now postoperative day #5. Doing well asymptomatic, continues to have minimal air leak especially upon coughing. Otherwise the patient is doing great. Chest tube remains in place it is off wall suction on waterseal. Patient has been ambulating in the hallway without any difficulty. WBC 6.9 hemoglobin 13 electrolytes abnormal renal profile is normal Progress note dated March 08, 2025. This patient is postoperative day #6. The patient is resting comfortably in bed. He is on room air. No IV fluids. He has a right sided chest tube in place. He has had a previous right lower lobectomy. Clinically, the patient is doing reasonably well. The plan is to remove the chest tube sometime later today. He has no specific complaints. He is awake and alert. White count is 6.91, hemoglobin 13, hematocrit 38.6, platelet count normal. Sodium 137, potassium 4.5, chlorides 101, CO2 31, BUN 10, creatinine 0.79. Calcium is 9.9. Chest x-ray shows a small right thoracotomy tube, with trace pneumothorax. Progress note dated March 09, 2025. 54-year-old male seen today in room 370. He is postoperative day #7. He is resting comfortably in the room, and currently on room air. The patient is not receiving any IV fluids. The patient remains with a right sided chest tube, which has a leak. Saturations are 96%. He is status post right lower lobectomy. All nodes were negative. 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 Current labs include a white count of 10.6, hemoglobin 14.4, hematocrit 43.1, and a normal platelet count. Sodium 138, potassium 4.9, chloride 79, CO2 30, anion gap 9, BUN 18, creatinine 0.88. Glucose is 162. Calcium is 9.9. Chest x-ray today shows postsurgical changes in the right lower lobe, from the previous right lower lobectomy. There is a small right-sided apical pneumothorax. Chest tubes are noted. Progress note dated March 10, 2025. 54-year-old male seen today in room 370. He is postoperative day #8. The patient is resting comfortably in bed. He is awake and alert. Right chest tube remains. He is on room air. He is not receiving any IV fluids. Current laboratory data includes a white count of 8.6, hemoglobin 13.3, hematocrit 39.7, and a normal platelet count. No additional laboratory data today. Chest x-ray shows postsurgical changes, from the previous right lower lobectomy, with no evidence of pneumothorax. Progress note dated March 11, 2025. The patient is seen today in room 370. The patient has a right chest tube in place. There is evidence of a right pneumothorax. He is on room air. He is not receiving any IV fluids. The patient has been followed by cardiothoracic surgery. He has no specific complaints. Today is postoperative day #9. Current laboratory data includes a white count of 6.3, hemoglobin 12.6, hematocrit 37.9, and a normal platelet count. Sodium 140, potassium 4.4, chlorides 107, CO2 27, BUN 14, creatinine 0.73. Glucose is 82. Calcium is 9.2. Chest x-ray shows an increasing size of the right sided pneumothorax. Chest tube remains in place. Progress note dated March 12, 2025. 54-year-old male seen again today in room 370. He has not been in the hospital for 10 days. He has a right chest tube in place. There is a slight leak. He is on room air. He is not receiving any IV fluids. Clinically, the patient is stable. According to cardiothoracic surgery, he may require a Heimlich valve, to be placed on Saturday, if his leak does not seal up. Current labs showed a white count of 9.22, hemoglobin 12.6, hematocrit 38, platelet count is normal. Sodium 140, potassium 4.4, chlorides 103, CO2 29, anion gap 8, BUN 14, creatinine 0.72. Glucose is 149. Calcium is 9.7. Chest x-ray is largely unchanged. No obvious pneumothorax is seen on the right side. Objective - Vital Signs Vital signs: Vital Signs Temp 97.8 F 03/12/25 04:00 Pulse 80 03/12/25 12:08 Resp 18 03/12/25 08:10 BP 127/78 03/12/25 08:10 Pulse Ox 98 03/12/25 08:10 FiO2 Intake & Output 03/11/25 03/12/25 03/12/25 18:59 06:59 18:59 Intake Total 679 924 9362 Output Total 60 320 2050 Balance 416 -80 -740 Weight 67.2 kg Intake: IV 10 Invasive Line 4 10 Oral 441 475 1900 Output: Chest Tube Drainage 60 50 Right 60 50 Drainage 60 Right Chest 60 Urine 260 2000 Other: Voiding Method Toilet Toilet Toilet Urinal Urinal Urinal - Exam No acute distress, oriented 3. Currently on room air. HEENT examination is grossly unremarkable. Mucous membranes are moist. No oral lesions. Neck supple. Full range of motion. No adenopathy thyromegaly or neck vein distention. Cardiovascular examination reveals regular rhythm rate. S1-S2 normal. No S3 or S4. No discernible murmur noted. Lungs reveal clear breath sounds. Breath sounds are equal bilaterally. No adventitious lung sounds including wheezes rhonchi or crackles. Right sided chest tube noted. Abdomen soft bowel sounds are heard. No masses or tenderness. Extremities are intact. No cyanosis clubbing or edema. Skin is without rash or lesion. Neurologic examination is brief but nonfocal. - Labs CBC & Chem 7: 03/12/25 08:15 03/12/25 08:15 Labs: Abnormal Lab Results - Last 24 Hours (Table) 03/12/25 03/12/25 Range/Units 08:15 08:15 RBC 4.13 L (4.40-5.60) 10*6/uL Hgb 12.6 L (13.0-17.0) g/dL Hct 38.0 L (39.6-50.0) % MPV 9.4 L (9.5-12.2) fL Glucose 149 H (74-99) mg/dL Assessment and Plan Assessment: 2.3 x 1.6 cm PET avid superior segment of the right lower lobe solid pulmonary nodule, S/P right lower lobe superior segment wedge for excisional biopsy nodule. Completion lobectomy. Mediastinal lymph node dissection. 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 Non-small cell neuroendocrine tumor, with lipidic pattern, all lymph nodes, sample, were negative. Chronic and ongoing tobacco dependence. Mild chronic obstructive pulmonary disease with an FEV1 value 97% of predicted. Plan: Plan dated March 08, 2025. The patient is seen today in room 370. He is resting comfortably in bed. The patient is postop day #6. We will continue to follow the patient, and make recommendations along the way. The patient is S/P right lower lobectomy. Chest tube is in place. Labs, x-rays, medications are reviewed. Will continue to follow make recommendations along the way. Prognosis is guarded. Dictation was produced using [employer] software. Please excuse any grammatical, word or spelling errors. Plan dated March 09, 2025. The patient is postoperative day #7. He is on room air. He has a right chest tube in place. There is still a leak, albeit smaller. Clinically, the patient is stable. Labs, x-rays, and all medications are reviewed. He does have a persistent right sided apical pneumothorax which is very small. We will continue to follow make recommendations along the way. All margins were negative. All lymph nodes were negative for malignancy. 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 Dictation was produced using [employer] software. Please excuse any grammatical, word or spelling errors. Plan dated March 10, 2025. The patient is postoperative day #8. He is resting comfortably in bed. No acute distress. The patient is currently on room air. Not receiving any IV fl uids. The patient's right sided chest tube is still in place. We will continue to follow make recommendations along the way. Labs, x-rays, and medications are reviewed. Prognosis is guarded. Dictation was produced using [employer] software. Please excuse any grammatical, word or spelling errors. Plan dated March 11, 2025. The patient is postoperative day #9. He is resting comfortably. On room air. No IV fluids. Chest x-ray shows a slightly enlarged right-sided pneumothorax. Chest tube remains in place. He is being followed by cardiothoracic surgery. Labs, x-rays, medications are reviewed. We will continue to follow make recommendations along the way. Prognosis is guarded. Dictation was produced using [employer] software. Please excuse any grammatical, word or spelling errors. Plan dated March 12, 2025. The patient is seen today in room 378. He is sitting in the chair next to the hospital bed. He has a right chest tube in place. There is a slight leak. Chest x-ray does not reveal any pneumothorax. The plan is to possibly send him home on Saturday, with a Heimlich valve. Hopefully he will be able to go home before then. Labs, x-rays, and all medications are reviewed. The patient's overall prognosis remains guarded. We will continue to follow and make recommendations where appropriate. Dictation was produced using [employer] software. Please excuse any grammatical, word or spelling errors.
--- NOTE | 2025-03-13 06:59 | XR ---
Chest, 2 view. CLINICAL INDICATION: Male, 54 years old with history of Post lobectomy COMPARISON: 03/12/2025 TECHNIQUE: PA and lateral views the chest are obtained. FINDINGS: There is no change in the right thoracotomy tube. There is stable minimal scarring or atelectasis in the right lower lobe. Left lung is clear. There is no pleural effusion or pneumothorax. The heart, pulmonary vasculature, mediastinum and christopher appear normal. The osseous structures are intact. IMPRESSION: 1. No change in the right thoracotomy tube. 2. No pneumothorax. 3. No interval change [facility], , 03/13/2025 6:56 AM
--- NOTE | 2025-03-13 09:13 | P.PN ---
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 Previous medical history of hyperlipidemia, chronic obstructive pulmonary disease, and chronic ongoing tobacco dependence. POD #11 Right lower lobe superior segment wedge for excisional biopsy nodule, completion lobectomy, mediastinal lymph node dissection, and 2 level intercostal nerve block. Prolonged airleak greater than 5 days. The patient was seen and examined this morning ambulating in his room on the cardiac stepdown unit in no acute distress. Denies pain or shortness of breath. Currently sinus rhythm on the monitor, hemodynamically stable, remains on room air with oxygen saturation in the mid 90s, able to achieve 2500 mL on incentive spirometry. Right pleural chest tube present to [facility], minimal airleak present with coughing only. Patient has been up ambulatory and is restless, wanting to go home, states he has a to go to on Saturday. Dr. Sparrow discussed with the patient that if he still has an air leak on Saturday we may discharge him with Heimlich valve present, however with minimal airleak and no pneumothorax on x-ray it is possible patient may have chest tube discontinue tomorrow and be able to go home tomorrow afternoon. No other new concerns. Objective - Vital Signs Vital signs: Vital Signs Temp 98.4 F 03/13/25 09:04 Pulse 71 03/13/25 09:04 Resp 14 03/13/25 09:04 BP 106/68 03/13/25 09:04 Pulse Ox 99 03/13/25 09:04 FiO2 Intake & Output 03/12/25 03/13/25 03/13/25 18:59 06:59 18:59 Intake Total 1570 800 Output Total 2080 785 Balance -510 15 Intake: IV 30 20 Invasive Line 4 20 Invasive Line 5 10 20 Oral 1540 780 Output: Chest Tube Drainage 80 0 Right 80 0 Drainage 135 Right Chest 135 Urine 2000 650 Other: Voiding Method Toilet Toilet Urinal Urinal # Voids 4 - Exam CONSTITUTIONAL: Appears comfortable, cooperative, no acute distress RESPIRATORY: Lungs sounds diminished bilaterally. Respirations even, nonlabored. Currently on room air with oxygen saturation 98%. Able to achieve 2500 mL on incentive spirometry. Strong cough. CARDIOVASCULAR: S1, S2 present. Regular rate and rhythm, sinus rhythm on telemetry. Palpable peripheral pulses bilaterally. No edema present. No calf pain or tenderness noted. SCDs present. GASTROINTESTINAL: Abdomen soft, nontender, nondistended. Active bowel sounds present 4 quadrants. Tolerating diet. Positive bowel movement 03/10 GENITOURINARY: Continues to void INTEGUMENTARY: Skin is warm and dry with evidence of good perfusion. Thoracic incision well approximated and covered with dry intact dressing. NEUROLOGIC: Cranial nerves II through XII intact MUSKULOSKELETAL: Able to move all extremities, strength equal bilaterally, gait normal PSYCHIATRIC: Alert and oriented to person place and time, appropriate affect, intact judgment and insight INVASIVE LINES AND TUBES: Right pleural chest tube present to waterseal, minimal airleak with coughing, 135 mL serosanguineous drainage overnight, 300 mL in the last 24 hours - Allied health notes Allied health notes reviewed: nursing - Labs CBC & Chem 7: 03/12/25 08:15 03/12/25 08:15 Labs: Abnormal Lab Results - Last 24 Hours (Table) 03/12/25 03/12/25 Range/Units 08:15 08:15 RBC 4.13 L (4.40-5.60) 10*6/uL Hgb 12.6 L (13.0-17.0) g/dL Hct 38.0 L (39.6-50.0) % MPV 9.4 L (9.5-12.2) fL Glucose 149 H (74-99) mg/dL - Imaging and Cardiology Chest x-ray: report reviewed, image reviewed Assessment and Plan Assessment: Right lower lobe lung nodule, pathology 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 History of hyperlipidemia Chronic obstructive pulmonary disease Chronic ongoing tobacco dependence Plan: Keep right pleural chest tubes to waterseal, continue to monitor for airleak resolution, likely will discontinue tomorrow If no resolution of airleak by Saturday morning will place Heimlich valve so patient may be discharged to attend his sister's Encourage use of incentive spirometry 10 times every hour while awake Increase activity as tolerated Continue to monitor daily chest x-rays Pain control per current occasion regimen More recommendations to follow based on patient's clinical course
--- NOTE | 2025-03-13 10:49 | P.PN ---
Subjective Progress Note Date: 03/13/25 Principal diagnosis: Lung cancer. This is a 54-year-old male patient with a known history of chronic obstructive pulmonary disease, very mild with an FEV1 value 97% of predicted, chronic and ongoing tobacco dependence. He was being followed in our office with Dr. Sterling regarding a right lower lobe mass measuring 2.3 cm that was PET avid. He did undergo robotic bronchoscopy however the results were inconclusive. He was referred to Dr. Sparrow for wedge resection and biopsy. He was brought in today electively for the surgery. He did undergo a right lower lobe superior segment wedge for excisional biopsy nodule. Completion lobectomy, and mediastinal lymph node dissection. 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 Postoperative chest x-ray reveals partial right sided lobectomy with right sided chest tube in place. No evidence of pneumothorax. He is seen today in consultation on the selective care unit. Currently sitting up in bed. Awake and alert in no acute distress. He is maintaining O2 saturations in the upper 90s on 2 L/min per nasal cannula. He is afebrile. Hemodynamically stable. Right sided chest tube remains in place to Pleur-evac and wall suction. Positive leak present. He is educated regarding the importance of the use of the incentive spirometer. The patient is seen today March 03, 2025 in follow-up on the selective care unit. He is currently sitting up at the bedside. Awake and alert in no acute distress. Maintaining good O2 saturations in the 90s on room air oxygen. He is afebrile. Hemodynamically stable. Chest x-ray reveals 2 right-sided chest tubes in place. Postoperative changes of partial right sided lobectomy. No sizable pneumothorax. Chest tubes remain to Pleur-evac and continuous low wall suction at -20 cm per H2O. Approximately 350 mL of serosanguineous drainage since surgery. There is a continuous airleak present. He is working well with the incentive spirometer. White count 18.2. Hemoglobin 13.0. Platelets 232. Sodium 139. Potassium 3.9. Bicarb 28. BUN 9. Creatinine 0.73. Glucose 140. Pathology results are pending. The patient is seen today March 04, 2025 in follow-up on the selective care unit. He is awake and alert in no acute distress. Up ambulating in his room. Maintaining good O2 saturations in the upper 90s on room air oxygen. He is afebrile. Hemodynamically stable. White count 8.4. Hemoglobin 12.5. Platelets 209. Sodium 140. Potassium 4.5. Bicarb 32. BUN 10. Creatinine 0.71. He remains on DuoNeb and elations. Continuing to work well with the incentive spirometer. Heparin for DVT prophylaxis. NicoDerm patch in place. Chest tube remains in place. Intermittent leak is present. Drained 250 mL in the past 24 hours. Serosanguineous. Patient was seen today on 03/05/2025, patient is POD #3 Right lower lobe superior segment wedge for excisional biopsy nodule, completion lobectomy, mediastinal lymph node dissection, and 2 level intercostal nerve block. Patient is doing well, continues to have chest tube in place, presently his chest tube is on waterseal, minimal intermittent air leak noted with cough. Otherwise the patient is doing great. Chest x-ray showed no evidence of pneumothorax. Patient is doing well with incentive spirometry, compliant, he is ambulatory, and I believe the patient will be discharged home once the chest tube is removed most likely in the next 24 hours. Seen today on 03/06/2025, patient is now postoperative day #4, doing great, asymptomatic, continues to have intermittent airleak, chest x-ray showed no appreciable pneumothorax. Clinically the patient is doing great, ambulating, and doing quite well with incentive spirometry. Again as long as the chest tube remains in place, patient is not ready for discharge, hopefully the chest tube could be removed in the next 24 to 48 hours at the most. Patient was seen today on 03/07/2025, he is now postoperative day #5. Doing well asymptomatic, continues to have minimal air leak especially upon coughing. Otherwise the patient is doing great. Chest tube remains in place it is off wall suction on waterseal. Patient has been ambulating in the hallway without any difficulty. WBC 6.9 hemoglobin 13 electrolytes abnormal renal profile is normal Progress note dated March 08, 2025. This patient is postoperative day #6. The patient is resting comfortably in bed. He is on room air. No IV fluids. He has a right sided chest tube in place. He has had a previous right lower lobectomy. Clinically, the patient is doing reasonably well. The plan is to remove the chest tube sometime later today. He has no specific complaints. He is awake and alert. White count is 6.91, hemoglobin 13, hematocrit 38.6, platelet count normal. Sodium 137, potassium 4.5, chlorides 101, CO2 31, BUN 10, creatinine 0.79. Calcium is 9.9. Chest x-ray shows a small right thoracotomy tube, with trace pneumothorax. Progress note dated March 09, 2025. 54-year-old male seen today in room 370. He is postoperative day #7. He is resting comfortably in the room, and currently on room air. The patient is not receiving any IV fluids. The patient remains with a right sided chest tube, which has a leak. Saturations are 96%. He is status post right lower lobectomy. All nodes were negative. 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 Current labs include a white count of 10.6, hemoglobin 14.4, hematocrit 43.1, and a normal platelet count. Sodium 138, potassium 4.9, chloride 79, CO2 30, anion gap 9, BUN 18, creatinine 0.88. Glucose is 162. Calcium is 9.9. Chest x-ray today shows postsurgical changes in the right lower lobe, from the previous right lower lobectomy. There is a small right-sided apical pneumothorax. Chest tubes are noted. Progress note dated March 10, 2025. 54-year-old male seen today in room 370. He is postoperative day #8. The patient is resting comfortably in bed. He is awake and alert. Right chest tube remains. He is on room air. He is not receiving any IV fluids. Current laboratory data includes a white count of 8.6, hemoglobin 13.3, hematocrit 39.7, and a normal platelet count. No additional laboratory data today. Chest x-ray shows postsurgical changes, from the previous right lower lobectomy, with no evidence of pneumothorax. Progress note dated March 11, 2025. The patient is seen today in room 370. The patient has a right chest tube in place. There is evidence of a right pneumothorax. He is on room air. He is not receiving any IV fluids. The patient has been followed by cardiothoracic surgery. He has no specific complaints. Today is postoperative day #9. Current laboratory data includes a white count of 6.3, hemoglobin 12.6, hematocrit 37.9, and a normal platelet count. Sodium 140, potassium 4.4, chlorides 107, CO2 27, BUN 14, creatinine 0.73. Glucose is 82. Calcium is 9.2. Chest x-ray shows an increasing size of the right sided pneumothorax. Chest tube remains in place. Progress note dated March 12, 2025. 54-year-old male seen again today in room 370. He has not been in the hospital for 10 days. He has a right chest tube in place. There is a slight leak. He is on room air. He is not receiving any IV fluids. Clinically, the patient is stable. According to cardiothoracic surgery, he may require a Heimlich valve, to be placed on Saturday, if his leak does not seal up. Current labs showed a white count of 9.22, hemoglobin 12.6, hematocrit 38, platelet count is normal. Sodium 140, potassium 4.4, chlorides 103, CO2 29, anion gap 8, BUN 14, creatinine 0.72. Glucose is 149. Calcium is 9.7. Chest x-ray is largely unchanged. No obvious pneumothorax is seen on the right side. Progress note dated March 13, 2025. 54-year-old male seen again in room 370. Patient has a right chest tube in place. He has had a small leak. Currently, he is on room air. He is not receiving any IV fluids. Hopefully, chest tube can be removed, over the weekend. If not, the patient may be discharged home with a Heimlich valve. He has no specific complaints. He denies any shortness of breath, cough, wheezing, chest tightness, or phlegm production. No new labs today as yet. X-ray shows no major changes. There is no pneumothorax. Right chest tube is noted. Objective - Vital Signs Vital signs: Vital Signs Temp 98.4 F 03/13/25 09:04 Pulse 71 03/13/25 09:04 Resp 14 03/13/25 09:04 BP 106/68 03/13/25 09:04 Pulse Ox 99 03/13/25 09:04 FiO2 Intake & Output 03/12/25 03/13/25 03/13/25 18:59 06:59 18:59 Intake Total 1570 800 240 Output Total 2080 785 Balance -510 15 240 Intake: IV 30 20 Invasive Line 4 20 Invasive Line 5 10 20 Oral 1540 780 240 Output: Chest Tube Drainage 80 0 Right 80 0 Drainage 135 Right Chest 135 Urine 2000 650 Other: Voiding Method Toilet Toilet Urinal Urinal # Voids 4 - Exam No acute distress, oriented 3. Currently on room air. HEENT examination is grossly unremarkable. Mucous membranes are moist. No oral lesions. Neck supple. Full range of motion. No adenopathy thyromegaly or neck vein distention. Cardiovascular examination reveals regular rhythm rate. S1-S2 normal. No S3 or S4. No discernible murmur noted. Lungs reveal clear breath sounds. Breath sounds are equal bilaterally. No adventitious lung sounds including wheezes rhonchi or crackles. Right sided chest tube noted. Abdomen soft bowel sounds are heard. No masses or tenderness. Extremities are intact. No cyanosis clubbing or edema. Skin is without rash or lesion. Neurologic examination is brief but nonfocal. - Labs CBC & Chem 7: 03/12/25 08:15 03/12/25 08:15 Assessment and Plan Assessment: 2.3 x 1.6 cm PET avid superior segment of the right lower lobe solid pulmonary nodule, S/P right lower lobe superior segment wedge for excisional biopsy nodule. Completion lobectomy. Mediastinal lymph node dissection. 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 Non-small cell neuroendocrine tumor, with lipidic pattern, all lymph nodes, sample, were negative. Chronic and ongoing tobacco dependence. Mild chronic obstructive pulmonary disease with an FEV1 value 97% of predicted. Plan: Plan dated March 08, 2025. The patient is seen today in room 370. He is resting comfortably in bed. The patient is postop day #6. We will continue to follow the patient, and make recommendations along the way. The patient is S/P right lower lobectomy. Chest tube is in place. Labs, x-rays, medications are reviewed. Will continue to follow make recommendations along the way. Prognosis is guarded. Dictation was produced using [employer]ation software. Please excuse any grammatical, word or spelling errors. Plan dated March 09, 2025. The patient is postoperative day #7. He is on room air. He has a right chest tube in place. There is still a leak, albeit smaller. Clinically, the patient is stable. Labs, x-rays, and all medications are reviewed. He does have a persistent right sided apical pneumothorax which is very small. We will continue to follow make recommendations along the way. All margins were negative. All lymph nodes were negative for malignancy. 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 Dictation was produced using [employer] software. Please excuse any grammatical, word or spelling errors. Plan dated March 10, 2025. The patient is postoperative day #8. He is resting comfortably in bed. No acute distress. The patient is currently on room air. Not receiving any IV fluids. The patient's right sided chest tube is still in place. We will continue to follow make recommendations along the way. Labs, x-rays, and medications are reviewed. Prognosis is guarded. Dictation was produced using [employer] software. Please excuse any grammatical, word or spelling errors. Plan dated March 11, 2025. The patient is postoperative day #9. He is resting comfortably. On room air. No IV fluids. Chest x-ray shows a slightly enlarged right-sided pneumothorax. Chest tube remains in place. He is being followed by cardiothoracic surgery. Labs, x-rays, medications are reviewed. We will continue to follow make recommendations along the way. Prognosis is guarded. Dictation was produced using [employer] software. Please excuse any grammatical, word or spelling errors. Plan dated March 12, 2025. The patient is seen today in room 378. He is sitting in the chair next to the hospital bed. He has a right chest tube in place. There is a slight leak. Chest x-ray does not reveal any pneumothorax. The plan is to possibly send him home on Saturday, with a Heimlich valve. Hopefully he will be able to go home before then. Labs, x-rays, and all medications are reviewed. The patient's overall prognosis remains guarded. We will continue to follow and make victor m mmendations where appropriate. Dictation was produced using [employer] software. Please excuse any grammatical, word or spelling errors. Plan dated March 13, 2025. The patient is again seen today in room 370. The patient is currently on room air. The patient is not receiving any IV fluids. The right chest tube remains in place. There is a small leak noted. Clinically, the patient is stable. Labs, x-rays, and all medications are reviewed. We will continue to follow the patient, make recommendations along the way. Prognosis is guarded. The chest tube may be removed, or, the patient may have a Heimlich valve connected to the chest tube, and he may be discharged on that. We will leave that up to the cardiothoracic group. Dictation was produced using [employer]ation software. Please excuse any grammatical, word or spelling errors. Time with Patient: Less than 30
--- NOTE | 2025-03-14 06:53 | XR ---
Chest, 2 view. CLINICAL INDICATION: Male, 54 years old with history of Post lobectomy COMPARISON: 03/13/2025 TECHNIQUE: PA and lateral views the chest are obtained. FINDINGS: There is stable minimal scarring or atelectasis in the right lower lobe. There is no change in the me diastinal tube. There is no airspace consolidation. There is no pleural effusion or pneumothorax. The heart, pulmonary vasculature, mediastinum and christopher appear normal. The osseous structures are intact. IMPRESSION: No acute cardiopulmonary process. No interval change. [facility], , 03/14/2025 6:50 AM
[2025-03-14 07:13] LABS: HCT 40.4 % (39.6-50.0); HGB 13.4 g/dL (13.0-17.0); MCH 30.0 pg (27.0-32.0); MCHC 33.2 g/dL (32.0-37.0); MCV 90.4 fL (80.0-97.0); Platelet Count 441 10*3/uL (140-440); RBC 4.47 10*6/uL (4.40-5.60); RDW 12.0 % (11.5-14.5); WBC 9.32 10*3/uL (4.50-10.00)
--- NOTE | 2025-03-14 07:29 | P.PN ---
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 Previous medical history of hyperlipidemia, chronic obstructive pulmonary disease, and chronic ongoing tobacco dependence. POD #12 Right lower lobe superior segment wedge for excisional biopsy nodule, completion lobectomy, mediastinal lymph node dissection, and 2 level intercostal nerve block. Prolonged airleak greater than 5 days. The patient was seen and examined this morning sitting up in bed on the cardiac stepdown unit in no acute distress. Denies pain or shortness of breath. Currently sinus rhythm on the monitor, hemodynamically stable, remains on room air with oxygen saturation in the high 90s, able to achieve 2500 mL on incentive spirometry. Right pleural chest tube present to [facility], no airleak present. Patient has been up ambulatory and is restless, wanting to go home, states he has a to go to on Saturday. No other new concerns. Objective - Vital Signs Vital signs: Vital Signs Temp 97.9 F 03/14/25 04:16 Pulse 83 03/14/25 04:16 Resp 18 03/14/25 04:16 BP 113/66 03/14/25 04:16 Pulse Ox 97 03/14/25 04:16 FiO2 Intake & Output 03/13/25 03/14/25 03/14/25 18:59 06:59 18:59 Intake Total 1080 10 Output Total 120 670 Balance 960 -660 Weight 67 kg Intake: IV 10 Invasive Line 5 10 Oral 1080 Output: Chest Tube Drainage 20 50 Right 20 50 Urine 100 620 Other: Voiding Method Toilet Toilet Urinal Urinal - Exam CONSTITUTIONAL: Appears comfortable, cooperative, no acute distress RESPIRATORY: Lungs sounds diminished bilaterally. Respirations even, nonlabored. Currently on room air with oxygen saturation 97%. Able to achieve 2500 mL on incentive spirometry. Strong cough. CARDIOVASCULAR: S1, S2 present. Regular rate and rhythm, sinus rhythm on telemetry. Palpable peripheral pulses bilaterally. No edema present. No calf pain or tenderness noted. SCDs present. GASTROINTESTINAL: Abdomen soft, nontender, nondistended. Active bowel sounds present 4 quadrants. Tolerating diet. Positive bowel movement / GENITOURINARY: Continues to void INTEGUMENTARY: Skin is warm and dry with evidence of good perfusion. Thoracic incision well approximated and covered with dry intact dressing. NEUROLOGIC: Cranial nerves II through XII intact MUSKULOSKELETAL: Able to move all extremities, strength equal bilaterally, gait normal PSYCHIATRIC: Alert and oriented to person place and time, appropriate affect, intact judgment and insight INVASIVE LINES AND TUBES: Right pleural chest tube present to waterseal, no airleak this morning, 20 mL serosanguineous drainage overnight, 250 mL in the last 24 hours - Allied health notes Allied health notes reviewed: nursing - Labs CBC & Chem 7: 03/14/25 06:39 03/14/25 06:39 Labs: Abnormal Lab Results - Last 24 Hours (Table) 03/14/25 Range/Units 06:39 Plt Count 441 H (140-440) 10*3/uL MPV 8.7 L (9.5-12.2) fL - Imaging and Cardiology Chest x-ray: report reviewed, image reviewed Assessment and Plan Assessment: Right lower lobe lung nodule, pathology 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 History of hyperlipidemia Chronic obstructive pulmonary disease Chronic ongoing tobacco dependence Plan: Chest tube clamped, upon unclamping 1 tiny airbubble escaped. Will continue chest tube, clamp at 4 am tomorrow, CXR at 0800. If no pnemothorax will DC chest tube tomorrow If no resolution of airleak by Saturday morning will place Heimlich valve so patient may be discharged to attend his sister's Encourage use of incentive spirometry 10 times every hour while awake Increase activity as tolerated Continue to monitor daily chest x-rays Pain control per current occasion regimen More recommendations to follow based on patient's clinical course
[2025-03-14 07:36] LABS: African American GFR (CKD) >90 (>60 ml/min/1.73 sqM); Anion Gap 8 mmol/L; Blood Urea Nitrogen 15 mg/dL (9-20); Calcium 9.7 mg/dL (8.4-10.2); Carbon Dioxide 30 mmol/L (22-30); Chloride 100 mmol/L (98-107); Glucose 86 mg/dL (74-99); Non-African American GFR(CKD) >90 (>60 ml/min/1.73 sqM); Potassium 4.8 mmol/L (3.5-5.1); Sodium 138 mmol/L (137-145)
--- NOTE | 2025-03-14 11:04 | P.PN ---
Subjective Progress Note Date: 03/14/25 Principal diagnosis: Lung cancer. This is a 54-year-old male patient with a known history of chronic obstructive pulmonary disease, very mild with an FEV1 value 97% of predicted, chronic and ongoing tobacco dependence. He was being followed in our office with Dr. Sterling regarding a right lower lobe mass measuring 2.3 cm that was PET avid. He did undergo robotic bronchoscopy however the results were inconclusive. He was referred to Dr. Sparrow for wedge resection and biopsy. He was brought in today electively for the surgery. He did undergo a right lower lobe superior segment wedge for excisional biopsy nodule. Completion lobectomy, and mediastinal lymph node dissection. 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 Postoperative chest x-ray reveals partial right sided lobectomy with right sided chest tube in place. No evidence of pneumothorax. He is seen today in consultation on the selective care unit. Currently sitting up in bed. Awake and alert in no acute distress. He is maintaining O2 saturations in the upper 90s on 2 L/min per nasal cannula. He is afebrile. Hemodynamically stable. Right sided chest tube remains in place to Pleur-evac and wall suction. Positive leak present. He is educated regarding the importance of the use of the incentive spirometer. The patient is seen today March 03, 2025 in follow-up on the selective care unit. He is currently sitting up at the bedside. Awake and alert in no acute distress. Maintaining good O2 saturations in the 90s on room air oxygen. He is afebrile. Hemodynamically stable. Chest x-ray reveals 2 right-sided chest tubes in place. Postoperative changes of partial right sided lobectomy. No sizable pneumothorax. Chest tubes remain to Pleur-evac and continuous low wall suction at -20 cm per H2O. Approximately 350 mL of serosanguineous drainage since surgery. There is a continuous airleak present. He is working well with the incentive spirometer. White count 18.2. Hemoglobin 13.0. Platelets 232. Sodium 139. Potassium 3.9. Bicarb 28. BUN 9. Creatinine 0.73. Glucose 140. Pathology results are pending. The patient is seen today March 04, 2025 in follow-up on the selective care unit. He is awake and alert in no acute distress. Up ambulating in his room. Maintaining good O2 saturations in the upper 90s on room air oxygen. He is afebrile. Hemodynamically stable. White count 8.4. Hemoglobin 12.5. Platelets 209. Sodium 140. Potassium 4.5. Bicarb 32. BUN 10. Creatinine 0.71. He remains on DuoNeb and elations. Continuing to work well with the incentive spirometer. Heparin for DVT prophylaxis. NicoDerm patch in place. Chest tube remains in place. Intermittent leak is present. Drained 250 mL in the past 24 hours. Serosanguineous. Patient was seen today on 03/05/2025, patient is POD #3 Right lower lobe superior segment wedge for excisional biopsy nodule, completion lobectomy, mediastinal lymph node dissection, and 2 level intercostal nerve block. Patient is doing well, continues to have chest tube in place, presently his chest tube is on waterseal, minimal intermittent air leak noted with cough. Otherwise the patient is doing great. Chest x-ray showed no evidence of pneumothorax. Patient is doing well with incentive spirometry, compliant, he is ambulatory, and I believe the patient will be discharged home once the chest tube is removed most likely in the next 24 hours. Seen today on 03/06/2025, patient is now postoperative day #4, doing great, asymptomatic, continues to have intermittent airleak, chest x-ray showed no appreciable pneumothorax. Clinically the patient is doing great, ambulating, and doing quite well with incentive spirometry. Again as long as the chest tube remains in place, patient is not ready for discharge, hopefully the chest tube could be removed in the next 24 to 48 hours at the most. Patient was seen today on 03/07/2025, he is now postoperative day #5. Doing well asymptomatic, continues to have minimal air leak especially upon coughing. Otherwise the patient is doing great. Chest tube remains in place it is off wall suction on waterseal. Patient has been ambulating in the hallway without any difficulty. WBC 6.9 hemoglobin 13 electrolytes abnormal renal profile is normal Progress note dated March 08, 2025. This patient is postoperative day #6. The patient is resting comfortably in bed. He is on room air. No IV fluids. He has a right sided chest tube in place. He has had a previous right lower lobectomy. Clinically, the patient is doing reasonably well. The plan is to remove the chest tube sometime later today. He has no specific complaints. He is awake and alert. White count is 6.91, hemoglobin 13, hematocrit 38.6, platelet count normal. Sodium 137, potassium 4.5, chlorides 101, CO2 31, BUN 10, creatinine 0.79. Calcium is 9.9. Chest x-ray shows a small right thoracotomy tube, with trace pneumothorax. Progress note dated March 09, 2025. 54-year-old male seen today in room 370. He is postoperative day #7. He is resting comfortably in the room, and currently on room air. The patient is not receiving any IV fluids. The patient remains with a right sided chest tube, which has a leak. Saturations are 96%. He is status post right lower lobectomy. All nodes were negative. 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 Current labs include a white count of 10.6, hemoglobin 14.4, hematocrit 43.1, and a normal platelet count. Sodium 138, potassium 4.9, chloride 79, CO2 30, anion gap 9, BUN 18, creatinine 0.88. Glucose is 162. Calcium is 9.9. Chest x-ray today shows postsurgical changes in the right lower lobe, from the previous right lower lobectomy. There is a small right-sided apical pneumothorax. Chest tubes are noted. Progress note dated March 10, 2025. 54-year-old male seen today in room 370. He is postoperative day #8. The patient is resting comfortably in bed. He is awake and alert. Right chest tube remains. He is on room air. He is not receiving any IV fluids. Current laboratory data includes a white count of 8.6, hemoglobin 13.3, hematocrit 39.7, and a normal platelet count. No additional laboratory data today. Chest x-ray shows postsurgical changes, from the previous right lower lobectomy, with no evidence of pneumothorax. Progress note dated March 11, 2025. The patient is seen today in room 370. The patient has a right chest tube in place. There is evidence of a right pneumothorax. He is on room air. He is not receiving any IV fluids. The patient has been followed by cardiothoracic surgery. He has no specific complaints. Today is postoperative day #9. Current laboratory data includes a white count of 6.3, hemoglobin 12.6, hematocrit 37.9, and a normal platelet count. Sodium 140, potassium 4.4, chlorides 107, CO2 27, BUN 14, creatinine 0.73. Glucose is 82. Calcium is 9.2. Chest x-ray shows an increasing size of the right sided pneumothorax. Chest tube remains in place. Progress note dated March 12, 2025. 54-year-old male seen again today in room 370. He has not been in the hospital for 10 days. He has a right chest tube in place. There is a slight leak. He is on room air. He is not receiving any IV fluids. Clinically, the patient is stable. According to cardiothoracic surgery, he may require a Heimlich valve, to be placed on Saturday, if his leak does not seal up. Current labs showed a white count of 9.22, hemoglobin 12.6, hematocrit 38, platelet count is normal. Sodium 140, potassium 4.4, chlorides 103, CO2 29, anion gap 8, BUN 14, creatinine 0.72. Glucose is 149. Calcium is 9.7. Chest x-ray is largely unchanged. No obvious pneumothorax is seen on the right side. Progress note dated March 13, 2025. 54-year-old male seen again in room 370. Patient has a right chest tube in place. He has had a small leak. Currently, he is on room air. He is not receiving any IV fluids. Hopefully, chest tube can be removed, over the weekend. If not, the patient may be discharged home with a Heimlich valve. He has no specific complaints. He denies any shortness of breath, cough, wheezing, chest tightness, or phlegm production. No new labs today as yet. X-ray shows no major changes. There is no pneumothorax. Right chest tube is noted. Progress note dated March 14, 2025. 54-year-old male seen in room 370. He has a right chest tube, still in place. He does have a very mild/minimal leak. He is on room air. No IV fluids. We discussed the case with cardiothoracic surgery. The tube may or may not come out tomorrow. If it does not come out, the patient will have a Heimlich valve placed, and he will be discharged home. He had an uneventful night, without any changes in his symptomatology. Current laboratory data includes a white count of 9.3, hemoglobin 13.4, hematocrit 40.4, and a platelet count of 441,000. Sodium 138, potassium 4.8, chlorides 100, CO2 30, anion gap 8, BUN 15, creatinine 0.87. Chest x-ray is largely unchanged. No obvious pneumothorax. Objective - Vital Signs Vital signs: Vital Signs Temp 98.2 F 03/14/25 08:45 Pulse 81 03/14/25 08:45 Resp 14 03/14/25 08:45 BP 120/75 03/14/25 08:45 Pulse Ox 98 03/14/25 08:45 FiO2 Intake & Output 03/13/25 03/14/25 03/14/25 18:59 06:59 18:59 Intake Total 1080 10 240 Output Total 120 670 Balance 960 -660 240 Weight 67 kg Intake: IV 10 Invasive Line 5 10 Oral 1080 240 Output: Chest Tube Drainage 20 50 Right 20 50 Urine 100 620 Other: Voiding Method Toilet Toilet Urinal Urinal - Exam No acute distress, oriented 3. Currently on room air. HEENT examination is grossly unremarkable. Mucous membranes are moist. No oral lesions. Neck supple. Full range of motion. No adenopathy thyromegaly or neck vein distention. Cardiovascular examination reveals regular rhythm rate. S1-S2 normal. No S3 or S4. No discernible murmur noted. Lungs reveal clear breath sounds. Breath sounds are equal bilaterally. No adventitious lung sounds including wheezes rhonchi or crackles. Right sided chest tube noted. Abdomen soft bowel sounds are heard. No masses or tenderness. Extremities are intact. No cyanosis clubbing or edema. Skin is without rash or lesion. Neurologic examination is brief but nonfocal. - Labs CBC & Chem 7: 03/14/25 06:39 03/14/25 06:39 Labs: Abnormal Lab Results - Last 24 Hours (Table) 03/14/25 Range/Units 06:39 Plt Count 441 H (140-440) 10*3/uL MPV 8.7 L (9.5-12.2) fL Assessment and Plan Assessment: 2.3 x 1.6 cm PET avid superior segment of the right lower lobe solid pulmonary nodule, S/P right lower lobe superior segment wedge for excisional biopsy nodule. Completion lobectomy. Mediastinal lymph node dissection. 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 Non-small cell neuroendocrine tumor, with lipidic pattern, all lymph nodes, sample, were negative. Chronic and ongoing tobacco dependence. Mild chronic obstructive pulmonary disease with an FEV1 value 97% of predicted. Plan: Plan dated March 08, 2025. The patient is seen today in room 370. He is resting comfortably in bed. The patient is postop day #6. We will continue to follow the patient, and make recommendations along the way. The patient is S/P right lower lobectomy. Chest tube is in place. Labs, x-rays, medications are reviewed. Will continue to fo llow make recommendations along the way. Prognosis is guarded. Dictation was produced using [employer] software. Please excuse any grammatical, word or spelling errors. Plan dated March 09, 2025. The patient is postoperative day #7. He is on room air. He has a right chest tube in place. There is still a leak, albeit smaller. Clinically, the patient is stable. Labs, x-rays, and all medications are reviewed. He does have a persistent right sided apical pneumothorax which is very small. We will continue to follow make recommendations along the way. All margins were negative. All lymph nodes were negative for malignancy. 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 Dictation was produced using M[employer] software. Please excuse any grammatical, word or spelling errors. Plan dated March 10, 2025. The patient is postoperative day #8. He is resting comfortably in bed. No acute distress. The patient is currently on room air. Not receiving any IV fluids. The patient's right sided chest tube is still in place. We will continue to follow make recommendations along the way. Labs, x-rays, and medications are reviewed. Prognosis is guarded. Dictation was produced using Mily[employer] software. Please excuse any grammatical, word or spelling errors. Plan dated March 11, 2025. The patient is postoperative day #9. He is resting comfortably. On room air. No IV fluids. Chest x-ray shows a slightly enlarged right-sided pneumothorax. Chest tube remains in place. He is being followed by cardiothoracic surgery. Labs, x-rays, medications are reviewed. We will continue to follow make recommendations along the way. Prognosis is guarded. Dictation was produced using M[employer] software. Please excuse any grammatical, word or spelling errors. Plan dated March 12, 2025. The patient is seen today in room 378. He is sitting in the chair next to the hospital bed. He has a right chest tube in place. There is a slight leak. Chest x-ray does not reveal any pneumothorax. The plan is to possibly send him home on Saturday, with a Heimlich valve. Hopefully he will be able to go home before then. Labs, x-rays, and all medications are reviewed. The patient's overall prognosis remains guarded. We will continue to follow and make recommendations where appropriate. Dictation was produced using M[employer] software. Please excuse any grammatical, word or spelling errors. Plan dated March 13, 2025. The patient is again seen today in room 370. The patient is currently on room air. The patient is not receiving any IV fluids. The right chest tube remains in place. There is a small leak noted. Clinically, the patient is stable. Labs, x-rays, and all medications are reviewed. We will continue to follow the patient, make recommendations along the way. Prognosis is guarded. The chest tube may be removed, or, the patient may have a Heimlich valve connected to the chest tube, and he may be discharged on that. We will leave that up to the cardiothoracic group. Dictation was produced using M[employer] software. Please excuse any grammatical, word or spelling errors. Plan dated March 14, 2025. The patient is again seen today in room 370. He is on room air. Right chest tube is still in place. Still has a small leak. We did discuss the case with cardiothoracic surgery. Labs, x-rays, and medications are reviewed. The patient's overall prognosis remains guarded. We will continue to follow. Hopefully the chest tube comes out tomorrow, if not, the patient will go home with a Heimlich valve. Dictation was produced using Mily[employer] software. Please excuse any grammatical, word or spelling errors. Time with Patient: Less than 30
--- NOTE | 2025-03-15 07:25 | P.PN ---
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 Previous medical history of hyperlipidemia, chronic obstructive pulmonary disease, and chronic ongoing tobacco dependence. POD #13 Right lower lobe superior segment wedge for excisional biopsy nodule, completion lobectomy, mediastinal lymph node dissection, and 2 level intercostal nerve block. Prolonged airleak greater than 5 days. The patient was seen and examined this morning in the shower on the cardiac stepdown unit in no acute distress. Denies pain or shortness of breath. Was sinus rhythm on the monitor before showering, hemodynamically stable, remains on room air with oxygen saturation in the high 90s, able to achieve 2500 mL on incentive spirometry. Right pleural chest tube present, clamped this morning at 4 am. Patient has been up ambulatory and is restless, wanting to go home, states he has a to go to on Saturday. No other new concerns. Objective - Vital Signs Vital signs: Vital Signs Temp 98.7 F 03/14/25 19:57 Pulse 78 03/15/25 04:00 Resp 18 03/15/25 04:00 BP 108/64 03/15/25 04:00 Pulse Ox 97 03/15/25 04:00 FiO2 Intake & Output 03/14/25 03/15/25 03/15/25 18:59 06:59 18:59 Intake Total 660 240 Output Total 350 530 Balance 310 -290 Weight 65.8 kg Intake: Oral 660 240 Output: Chest Tube Drainage 180 Right 180 Urine 350 350 Other: Voiding Method Toilet Toilet # Voids 2 # Bowel Movements 1 - Exam CONSTITUTIONAL: Appears comfortable, cooperative, no acute distress RESPIRATORY: Lungs sounds diminished bilaterally. Respirations even, nonlabored. Currently on room air with oxygen saturation 97%. Able to achieve 2500 mL on incentive spirometry. Strong cough. CARDIOVASCULAR: S1, S2 present. Regular rate and rhythm, sinus rhythm on telemetry. Palpable peripheral pulses bilaterally. No edema present. No calf pain or tenderness noted. SCDs present. GASTROINTESTINAL: Abdomen soft, nontender, nondistended. Active bowel sounds present 4 quadrants. Tolerating diet. Positive bowel movement 03/14 GENITOURINARY: Continues to void INTEGUMENTARY: Skin is warm and dry with evidence of good perfusion. Thoracic incision well approximated and covered with dry intact dressing. 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 History of hyperlipidemia Chronic obstructive pulmonary disease Chronic ongoing tobacco dependence Plan: Chest tube clamped, CXR at [address] Girard Will DC chest tube Encourage use of incentive spirometry 10 times every hour while awake Increase activity as tolerated Continue to monitor daily chest x-rays Pain control per current occasion regimen Will DC to home today, patient to return for CXR then follow up with Dr Abby Sparrow
--- NOTE | 2025-03-15 08:23 | XR ---
EXAMINATION TYPE: XR chest 2V DATE OF EXAM: 03/15/2025 7:53 AM COMPARISON: 03/14/2025 CLINICAL INDICATION: Male, 54 years old with history of pneumothorax, , TECHNIQUE: PA and lateral views FINDINGS: Heart normal size. Right-sided chest tube remains in place. No appreciable pneumothorax. Some strandy atelectasis remains in the right base. No pleural effusion. Mild hyperinflation. IMPRESSION: Right-sided chest tube in place with some similar strandy right basilar atelectasis. Possible backgro und COPD. No acute process or appreciable pneumothorax. [facility], Workstation: [id number], 03/15/2025 8:21 AM
--- NOTE | 2025-03-15 10:06 | XR ---
EXAMINATION TYPE: XR chest 2V DATE OF EXAM: 03/15/2025 9:56 AM COMPARISON: Earlier today CLINICAL INDICATION: Male, 54 years old with history of PTX after CT removal, , TECHNIQUE: PA and lateral views FINDINGS: Interval removal of the right-sided chest tube. Strandy atelectasis remains at the right base. After chest tube removal, trace 2 mm right apical pneumothorax is apparent. Anterior component measuring 6 mm on the lateral view also noted. IMPRESSION: Right-sided chest tube removal. A trace to small right-sided pneumothorax is now apparent measuring 2 mm at the apex and 6 mm anteriorly. [facility], , 03/15/2025 10:04 AM
[2025-03-15 10:10] VITALS: TEMP 97.9
--- NOTE | 2025-03-15 10:14 | P.DS ---
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 History of hyperlipidemia Chronic obstructive pulmonary disease Chronic ongoing tobacco dependence PRINCIPAL PROCEDURE: Right lower lobe superior segment wedge for excisional biopsy nodule Completion lobectomy Mediastinal lymph node dissection 2 level intercostal nerve block. HISTORY OF PRESENT ILLNESS: This is a 54-year-old male who follows outpatient with nurse practitioner Annamaria Best for internal medicine and Dr. Sterling for pulmonology. This gentleman has had a longstanding history of smoking several packs of cigarettes per day. He underwent screening CT scan and was found to have a suspicious right lower lobe nodule. Further, he underwent PET/CT which demonstrated the nodule was FDG avid and he subsequently underwent biopsy using the navigational [employer] robotic system. Cytology and tissue biopsy showed highly suspicious cells for non-small cell carcinoma but was unable to confirm definitive diagnosis. The patient was referred to Dr. Sparrow from cardiothoracic surgery. He was recommended to undergo surgical wedge resection for biopsy and if frozen section positive completion lobectomy. The usual perioperative course was discussed in detail with the patient, all risks and benefits were explained, all questions were answered, and consent was obtained to proceed with surgery. The patient was scheduled for surgery at the earliest possible date. HOSPITAL COURSE: The patient was brought to the hospital on 03/02/25, taken to the preoperative area, prepared in the usual fashion, and subsequently taken to the operating room where Dr. Sparrow performed right lower segmental wedge resection followed by completion lobectomy. Upon completion of surgery the patient was extubated and taken to the recovery room with subsequent admission to 3 S. cardiac stepdown unit for further hemodynamic monitoring. The patient continues to have an air leak, once resolved chest tube was discontinued without incident. His oxygen was titrated down, he was tolerating oral diet, his pain was controlled, and he was ready to be discharged to home on postoperative day #13. He received written and verbal instruction regarding his medications, activity restrictions, signs and symptoms requiring physician notification, and follow-up appointments. Patient Condition at Discharge: Stable Plan - Discharge Summary Discharge Rx Participant: No New Discharge Prescriptions: New Nicotine 21Mg/24Hr Patch [Habitrol] 1 patch TRANSDERM DAILY #30 patch Acetaminophen Tab [Tylenol] 650 mg PO Q4HR PRN tab PRN Reason: Mild To Moderate Pain (1 - 6) traMADol HCl [Ultram] 50 mg PO QID PRN #12 tab PRN Reason: Severe Pain (Scale 7 To 10) Sennosides-Docusate Sodium [Senokot-S] 2 each PO HS PRN tab PRN Reason: Constipation Continue Cholecalciferol [Vitamin D3 (25 Mcg = 1000 Iu)] 25 mcg PO DAILY Discharge Medication List Cholecalciferol [Vitamin D3 (25 Mcg = 1000 Iu)] 25 mcg PO DAILY 12/21/24 [History] Acetaminophen Tab [Tylenol] 650 mg PO Q4HR PRN tab 03/15/25 [Rx] Nicotine 21Mg/24Hr Patch [Habitrol] 1 patch TRANSDERM DAILY #30 patch 03/15/25 [Rx] Sennosides-Docusate Sodium [Senokot-S] 2 each PO HS PRN tab 03/15/25 [Rx] traMADol HCl [Ultram] 50 mg PO QID PRN #12 tab 03/15/25 [Rx] Follow up Appointment(s)/Referral(s): Azucena Sterling MD [STAFF PHYSICIAN] - 03/29/25 8:30 am Annamaria Best NPC [REFERRING] - As Needed Kasi Sparrow MD [STAFF PHYSICIAN] - 03/18/25 1:30 pm Ambulatory/Diagnostic Orders: XR chest 2V [RAD.AMB] Time Frame: 03/18/25, Facility: [facility], Location: [facility] Activity/Diet/Wound Care/Special Instructions: DISCHARGE INSTRUCTIONS: 1. No driving for 2 weeks, or until physician gives their ok. 2. No lifting, pushing, or pulling more than 10 pounds for 2 weeks. The physician will advise of any restriction changes. 3. Continue pain control per as needed orders. Alternate acetaminophen (Tylenol) and ibuprofen (Motrin/Advil) for pain. 4. Continue with incentive spirometry and splinting until otherwise directed by the physician. 5. Leave chest tube dressing for 48 hours. After that, remove all dressings and shower daily. 6. Routine incision care. No powders, lotions, ointments on incisions. 7. Please call surgeon/TICKER WIRER for temp greater than 101 F or purulent drainage from incisions. 8. Smoking cessation counseling and program information provided. NO SMOKING!!!!! Quitting smoking is the most important step you can take to improve your health. For additional information and assistance to quit smoking, please call the [place] tobacco quit line (5-390-JORS-NOW/ ) or online: [email or web address] Discharge Disposition: HOME SELF-CARE
[2025-03-15 11:54] VITALS: BP 103/69; PULSE 68; RESP 16
--- NOTE | 2025-03-15 17:39 | P.PN ---
Subjective Progress Note Date: 03/15/25 03/15/2025, the patient has no specific complaints. The right-sided chest tube has been removed and the patient's follow-up chest x-ray shows adequate expansion of the right lung without any evidence of pneumothorax. The patient underwent a right lower lobe with subsequent completion lobectomy and medias tinal lymph node dissection. The patient is postop day #13. 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 Using incentive spirometer. No significant chest wall soreness. The white cell count at 9.3 with a heme of 13.4 and a platelet count of 441. Electrolytes are all within normal limits and the patient is in a normal sinus rhythm. No other significant events over the past 24 hours. Objective - Vital Signs Vital signs: Vital Signs Temp 97.9 F 03/15/25 08:00 Pulse 75 03/15/25 08:00 Resp 17 03/15/25 08:00 BP 100/64 03/15/25 08:00 Pulse Ox 98 03/15/25 08:00 FiO2 Intake & Output 03/14/25 03/15/25 03/15/25 18:59 06:59 18:59 Intake Total 660 240 240 Output Total 350 530 20 Balance 310 -290 220 Weight 65.8 kg Intake: Oral 660 240 240 Output: Chest Tube Drainage 180 20 Right 180 20 Urine 350 350 Other: Voiding Method Toilet Toilet Toilet # Voids 2 # Bowel Movements 1 - Exam CONSTITUTIONAL: Appears comfortable, cooperative, no acute distress RESPIRATORY: Lungs sounds diminished bilaterally. Respirations even, nonlabored. Currently on room air with oxygen saturation 97%. Able to achieve 2500 mL on incentive spirometry. Strong cough. CARDIOVASCULAR: S1, S2 present. Regular rate and rhythm, sinus rhythm on telemetry. Palpable peripheral pulses bilaterally. No edema present. No calf pain or tenderness noted. SCDs present. GASTROINTESTINAL: Abdomen soft, nontender, nondistended. Active bowel sounds present 4 quadrants. Tolerating diet. Positive bowel movement 03/14 GENITOURINARY: Continues to void INTEGUMENTARY: Skin is warm and dry with evidence of good perfusion. Thoracic incision well approximated and covered with dry intact dressing. NEUROLOGIC: Cranial nerves II through XII intact MUSKULOSKELETAL: Able to move all extremities, strength equal bilaterally, gait normal PSYCHIATRIC: Alert and oriented to person place and time, appropriate affect, intact judgment and insight INVASIVE LINES AND TUBES: Right pleural chest tube present, clamped - Labs CBC & Chem 7: 03/14/25 06:39 03/14/25 06:39 Assessment and Plan Plan: 2.3 x 1.6 cm PET avid superior segment of the right lower lobe solid pulmonary nodule, S/P right lower lobe superior segment wedge for excisional biopsy loreto tolliver. Completion lobectomy. Mediastinal lymph node dissection. Postoperative day #13, right lower lobe typical carcinoid tumor, stage Ic N0 M0 disease. Complicated with proloneged airleak, recovered Non-small cell neuroendocrine tumor, with lipidic pattern, all lymph nodes, sample, were negative. Chronic and ongoing tobacco dependence. Mild chronic obstructive pulmonary disease with an FEV1 value 97% of predicted. Plan: Right-sided chest tube has been removed No evidence of any pneumothorax on subsequent chest x-ray Clinically and hemodynamically stable and the patient is currently on room air oxygen The patient is to be discharged today to be followed up on outpatient basis.
== END 2025-03-15 12:58 | disposition home or self-care (01) | DRG 121 ==
LOC: 2ORMAIN 05:38 → 3SCARD 13:04
PROVIDERS: ADMIT Thoracic Surgery (Cardiothoracic Vascular Surgery); ATTEND Thoracic Surgery (Cardiothoracic Vascular Surgery)
PROC: 3E0T3BZ Introduction of Anesthetic Agent into Peripheral Nerves and Plexi, Percutaneous Approach (ICD-10-PCS; 2025-03-02)
PROC: 3E0T33Z Introduction of Anti-inflammatory into Peripheral Nerves and Plexi, Percutaneous Approach (ICD-10-PCS; 2025-03-02)
PROC: 0BBF4ZZ Excision of Right Lower Lung Lobe, Percutaneous Endoscopic Approach (ICD-10-PCS; 2025-03-02)
PROC: 8E0W3CZ Robotic Assisted Procedure of Trunk Region, Percutaneous Approach (ICD-10-PCS; 2025-03-02)
PROC: 07T74ZZ Resection of Thorax Lymphatic, Percutaneous Endoscopic Approach (ICD-10-PCS; principal; 2025-03-02 07:30)
DX: C34.31 Malignant neoplasm of lower lobe, right bronchus or lung (principal); J93.82 Other air leak; J44.89 Other specified chronic obstructive pulmonary disease; E78.5 Hyperlipidemia, unspecified; F17.210 Nicotine dependence, cigarettes, uncomplicated
CPT/HCPCS: 64466; 71045; 71046; 80048; 85025; 85027; 88305; 88309; 88331; 88341; 88342; 94640; 94760

== ENCOUNTER → 2025-03-18 | Outpatient (CLI) | payer OTHER ==
--- NOTE | 2025-03-18 22:02 | XR ---
EXAMINATION TYPE: XR chest 2V DATE OF EXAM: 03/18/2025 2:24 PM COMPARISON: 03/15/2025 CLINICAL INDICATION: Male, 54 years old with history of M79.5 RESIDUAL FOREIGN BODY IN SOFT TISSUE, , TECHNIQUE: Frontal and lateral views FINDINGS: There is obliquely oriented opacity marginating the right heart margin and additional patchy right lo wer lung opacity. The previous question right apical pneumothorax no longer seen. Mild hyperinflation . Heart normal size. IMPRESSION: COPD. Abnormal opacity along the right heart margin, possible partial right middle lobar collapse and /or abnormal consolidation. Consider CT for more accurate assessment. [facility], Workstation: [email or web address], 03/18/2025 9:59 PM
== END | disposition home or self-care (01) ==
LOC: RADXRMAIN 14:09
PROVIDERS: ATTEND Nurse Practitioner Acute Care
DX: J93.9 Pneumothorax, unspecified (principal); J44.9 Chronic obstructive pulmonary disease, unspecified; R91.8 Other nonspecific abnormal finding of lung field
CPT/HCPCS: 71046